=== PATIENT | male | born 1935 | race Asian ===

== ENCOUNTER 2018-01-14 18:51 | Inpatient (IN) | payer MEDICARE, BC ==
[~2018-01-14] VITALS: Ht 170.2 cm; Wt 91.6 kg
--- NOTE | 2018-01-14 18:55 | NUR ---
BBPA FROM US RENAL: LOW BP S/P HEMODIALYSIS. PATIENT IS VENT/TRACH DEPENDENT. A/OX 1, NO SOB NOTED. GTUBE INTACT AND PATENT. HD CATH PRESENTS ON RCW. SAFETY AND COMFORT MEASURES IN PLACE. IV STARTED ON RIGHT HAND, 20G. AT BEDSIDE FOR EVAL.
[2018-01-14 19:00] VITALS: BP 91/46
[2018-01-14] MEDS: VANCOMYCIN 1 GM in IV D5W 250 ML IV ONE ×2 (19:30→21:30)
[2018-01-14] MEDS ORDERED: IV NS 0.9% 500 ML BAG IV ONE (19:30)
--- NOTE | 2018-01-14 19:32 | NUR ---
REPORT GIVEN TO EVENING SITTER, ED FOR SYDNEE.
[2018-01-14 19:35] LABS: BASOPHILS % (AUTO) 0.3 % (0.0-2.0); HEMATOCRIT 27 % (39-51); LYMPHOCYTES # (AUTO) 0.6 /CMM (0.8-4.8); LYMPHOCYTES % (AUTO) 3.6 % (20.0-44.0); MEAN CORPUSCULAR HGB CONC 33 g/dl (31.0-36.0); MEAN CORPUSCULAR VOLUME 88 fL (80-96); MONOCYTES # (AUTO) 0.8 /CMM (0.1-1.30); MONOCYTES % (AUTO) 5.5 % (2.0-12.0); NEUTROPHILS # (AUTO) 11.8 /CMM (1.8-8.9); NEUTROPHILS % (AUTO) 76.6 % (43.0-81.0); PLATELET COUNT (AUTO) 170 /CMM (150-450); RDW COEFFICIENT OF VARIATION 19.3 (11.5-15.0); RED BLOOD CELL COUNT(AUTO) 3.07 MIL/uL (4.5-6.0); WHITE BLOOD COUNT (AUTO) 15.4 K/uL (4.3-11.0)
[2018-01-14 19:46] LABS: CALCIUM, SERUM 8.2 mg/dL (8.5-10.1); CARBON DIOXIDE 25 mmol/L (21-32); CHLORIDE 106 mmol/L (98-107); CREATININE 2.3 mg/dL (0.6-1.3); GLUCOSE 93 mg/dL (74-106); POTASSIUM 3.5 mmol/L (3.5-5.1); SODIUM SERUM 140 mmol/L (136-145); UREA NITROGEN, BLOOD 36 mg/dL (7-18)
[2018-01-14 19:54] LABS: TROPONIN I 0.028 ng/mL (0.00-0.056)
[2018-01-14 19:59] LABS: INR 1.28 (0.85-1.15)
[2018-01-14] MEDS ORDERED: IV NS 0.9% 250 ML BAG IV ONE (20:00)
[2018-01-14 20:02] LABS: PARTIAL THROMBOPLASTIN TIME > 170 SEC (23-34)
[2018-01-14 20:15] LABS: BAND % (MANUAL) 19 % (0.0-5.0); EOSINOPHILS % (MANUAL) 13 % (0-4); LYMPHOCYTES % (MANUAL) 8 % (16-48); MONOCYTES % (MANUAL) 6 % (0-11.0); NEUTROPHILS % (MANUAL) 54 (42-76)
[2018-01-14] MEDS ORDERED: VANCOMYCIN 1 GM VIAL ONE (20:59)
[2018-01-14] MEDS ORDERED: ACETAMINOPHEN 325 MG TABLET PO PRN (21:00)
[2018-01-14] MEDS ORDERED: PIPERACILLIN /TAZOBACTAM 3.375 G VIAL IV ONE (21:00)
[2018-01-14] MEDS ORDERED: CEFTRIAXONE 1 G in IV NS 0.9% 50 ML IV SCH (21:00)
[2018-01-14] MEDS ORDERED: PIPERACILLIN /TAZOBACTAM 3.375 G in IV D5W 50 ML IV ONE (21:00)
[2018-01-14 21:06] LABS: APPEARANCE,URINE TURBID (CLEAR); BILIRUBIN,URINE 1+ (NEGATIVE); BLOOD, URINE 3+ Ery/uL (NEGATIVE); COLOR,URINE DARK YELLO (YELLOW); KETONES,URINE TRACE (NEGATIVE); LEUKOCYTE ESTERASE ,URINE 1+ (NEGATIVE); NITRITE, URINE NEGATIVE (NEGATIVE); PH,URINE 5.5 (5.0-8.0); PROTEIN,URINE 3+ mg/dl (NEGATIVE); UGLUCOSE NEGATIVE (NEGATIVE); UROBILINOGEN,URINE 0.2 EU/dL (0.2)
--- NOTE | 2018-01-14 21:15 | NUR ---
REPORT CALLED TO TELE 1 ESTIVEN MARTINS. WILL TRANSPORT PT VIA ACLS PROTOCOL.
[2018-01-14 21:18] LABS: BACTERIA,URINE Many /HPF (None Seen); SQUAMOUS EPITHELIAL CELL,UR Few /HPF (None Seen)
[2018-01-14 22:10] VITALS: BP 91/51
--- NOTE | 2018-01-14 22:10 | NUR ---
RN KISHOR ADMITTING NOTE PT REC'D TRACHED ON CURRENT [facility] VENT SETTINGS. NO RESP DISTRESS NOTED. PT IS AWAKE AND ALERT, NON VERBAL, ABLE TO FOLLOW COMMAND, REPORT GIVEN BY ED ER, ADMITTING CAROL Reza NP, ALL ORDERS ENTERED PER PROTOCOL. INITIAL ASSESSMENT DONE, WITH SKIN ISSUES, PHOTOS TAKEN AND FILE, WOUND CONSULT AND KCI MATTRESS ORDERED. WITH A RH #20G, PATENT, GT PATENT ORDER FOR NOVASOURCE @ 60ML STARTED, WELL ELAINE, NO RESIDUAL AT THIS TIME. PTT>70 CAROL NIÑO AWARE, PT S/P DAILYSIS ON 01/14/18. SUCTIONED THICK YELLOW AND BLOOD TINGED SECRETIONS. VENT PLUGGED INTO RED OUTLET. AMBU BAG BEDSIDE. ALARMS ARE SET AND AUDIBLE. WILL CONTINUE TO MONITOR
[2018-01-14 22:20] VITALS: BP 91/50
[2018-01-14] MEDS ORDERED: CEFTRIAXONE 1 G VIAL ONE (23:53)
[2018-01-14] MEDS: AZITHROMYCIN 250 MG TABLET PO SCH (23:59)
[2018-01-15] VITALS: BP_SYST 91; BP_SYST 95; BP_DIAS 51; BP_DIAS 58
[2018-01-15] MEDS ORDERED: INSULIN ASPART/LISPRO 100 UNIT/ML CARTRIDGE SQ SCH
[2018-01-15] MEDS: RENAL NOVASOURCE 1,000 ML BOTTLE GT PRN ×2 (00:17→21:23)
[2018-01-15] MEDS: BLOOD SUGAR DIAGNOSTIC 1 EACH STRIP IN SCH ×5 (00:58→23:35)
[2018-01-15] MEDS ORDERED: DEXTROSE 50%-WATER 50 ML DISP.SYRIN IV PRN (01:00)
--- NOTE | 2018-01-15 01:02 | NUR ---
0000 BS 106 NO COVERAGE
--- NOTE | 2018-01-15 01:54 | NUR ---
ROCEPHINE AND NS UNABLE TO SCAN BARCODE
[2018-01-15] MEDS ORDERED: IV NS 0.9% 1,000 ML BAG IV PRN ×2 (02:00)
[2018-01-15 04:00] VITALS: BP 95/51
[2018-01-15] MEDS ORDERED: VIT1TABL46 GT (05:18)
[2018-01-15] MEDS ORDERED: DIPH25CA83 PO (05:18)
[2018-01-15] MEDS ORDERED: MIDO5TAB GT (05:18)
[2018-01-15] MEDS ORDERED: ASCO250T6 GT (05:18)
[2018-01-15] MEDS ORDERED: FAMO20TA8 GT (05:18)
[2018-01-15] MEDS ORDERED: ATOR40TA GT (05:18)
[2018-01-15] MEDS ORDERED: SEVE0.8P3 GT (05:18)
[2018-01-15] MEDS ORDERED: POLY17PO4 GT (05:18)
[2018-01-15] MEDS ORDERED: BISA10SU21 RC (05:18)
[2018-01-15] MEDS ORDERED: BICA50TA49 GT (05:18)
[2018-01-15] MEDS ORDERED: SENN-167 GT (05:18)
[2018-01-15] MEDS ORDERED: TAMS0.4C34 GT (05:18)
[2018-01-15] MEDS ORDERED: TRAM50TA2 GT (05:18)
[2018-01-15] MEDS ORDERED: ALBU2.5V13 IH (05:18)
--- NOTE | 2018-01-15 05:35 | NUR ---
PT REC'D TRACHED ON CURRENT [facility] VENT SETTINGS. NO RESP DISTRESS NOTED. PT IS AWAKE AND ALERT. SUCTIONED THICK YELLOW AND BLOOD TINGED SECRETIONS. VENT PLUGGED INTO RED OUTLET. AMBU BAG BEDSIDE. ALARMS ARE SET AND AUDIBLE. WILL CONTINUE TO MONITOR Addendum: 01/15/18 at 0537 by PEPE ENRIQUEZ RT Amended: Links added.
[2018-01-15] MEDS ORDERED: BLOOD SUGAR DIAGNOSTIC 1 EACH STRIP IN SCH (06:00)
--- NOTE | 2018-01-15 06:39 | NUR ---
RN CLOSING NOTE ENDORSED PT, AOX2 NON VERBAL, ABLE TO FOLLOW COMMAND, ON GTF, WELL ELAINE NO RESIDUAL AT THIS TIME, HOB ELEVATED FOR ASPIRATION PRECAUTION, VERY PRODUCTIVE VIA TRACH AND PER ORAL WITH BLOOD TINGE SECRETION, WILL ENDORSE FOR AM SHIFT NURSE TO MONITOR FOR BLEEDING. ALL PT NEEDS ANTICIPATED, CALL LIGHT W/R, KEPT CLEAN AND DRY.
[2018-01-15 07:20] LABS: BASOPHILS % (AUTO) 0.2 % (0.0-2.0); EOSINOPHILS % (AUTO) 13.6 % (0.0-6.0); HEMATOCRIT 27 % (39-51); HEMOGLOBIN 8.8 g/dL (13.5-17.5); LYMPHOCYTES # (AUTO) 0.4 /CMM (0.8-4.8); LYMPHOCYTES % (AUTO) 2.9 % (20.0-44.0); MEAN CORPUSCULAR HGB CONC 33 g/dl (31.0-36.0); MEAN CORPUSCULAR VOLUME 90 fL (80-96); MONOCYTES # (AUTO) 0.9 /CMM (0.1-1.30); MONOCYTES % (AUTO) 6.1 % (2.0-12.0); NEUTROPHILS # (AUTO) 11.7 /CMM (1.8-8.9); NEUTROPHILS % (AUTO) 77.2 % (43.0-81.0); PLATELET COUNT (AUTO) 158 /CMM (150-450); RDW COEFFICIENT OF VARIATION 20.5 (11.5-15.0); RED BLOOD CELL COUNT(AUTO) 2.97 MIL/uL (4.5-6.0); WHITE BLOOD COUNT (AUTO) 15.1 K/uL (4.3-11.0)
[2018-01-15 07:29] LABS: INR 1.2 (0.87-1.13)
[2018-01-15 07:56] LABS: CALCIUM, SERUM 8.1 mg/dL (8.5-10.1); CARBON DIOXIDE 24 mmol/L (21-32); CHLORIDE 105 mmol/L (98-107); CREATININE 2.7 mg/dL (0.6-1.3); GLUCOSE 137 mg/dL (74-106); MAGNESIUM 1.9 mg/dL (1.8-2.4); PHOSPHORUS 3.1 mg/dL (2.5-4.9); POTASSIUM 3.9 mmol/L (3.5-5.1); SODIUM SERUM 139 mmol/L (136-145); UREA NITROGEN, BLOOD 45 mg/dL (7-18)
[2018-01-15 08:00] VITALS: BP 88/43
[2018-01-15] MEDS ORDERED: ACET650S26 GT (08:01)
[2018-01-15] MEDS ORDERED: NUT.237L67 GT (08:01)
[2018-01-15] MEDS ORDERED: DOCU50LI GT (08:01)
[2018-01-15] MEDS ORDERED: AMIN30LI4 GT (08:01)
[2018-01-15] MEDS ORDERED: ONDA4TAB5 GT (08:01)
[2018-01-15] MEDS ORDERED: IPRA3AMP23 IH (08:01)
[2018-01-15 08:02] LABS: CHOLESTEROL 67 mg/dL (<200); HDL CHOLESTEROL 32 mg/dL (40-60); LDL 28 mg/dL (0-99); THYROID STIMULATING HORMONE 6.053 uIU/mL (0.358-3.74); TRIGLYCERIDES 89 mg/dL (30-150)
[2018-01-15] MEDS: AZITHROMYCIN 250 MG TABLET PO SCH (08:17)
[2018-01-15] MEDS: PANTOPRAZOLE 40 MG TABLET.DR PO SCH (08:17)
[2018-01-15] MEDS: DOCUSATE SODIUM LIQ 100 MG/10 ML UDC NG SCH ×2 (08:47→17:14)
--- NOTE | 2018-01-15 08:50 | NUR ---
WOUND CARE CONSULT: PT PRESENTS WITH MULTIPLE SKIN ISSUES AND WOUNDS INCLUDING LEFT UPPER ARM NECROTIC WOUND, SACRAL STAGE 3 ULCER, DEEP TISSUE INJURY TO RT BUTTOCK, MULTIPLE SCRATCHES AND DRY ABRASIONS TO BACK AND BUTTOCKS, GENERALIZED EDEMA AND DRY PEELING SKIN, ALL PRESENT ON ADMISSION. ALL SKIN PROTECTION AND WOUND CARE RECOMMENDATIONS DISCUSSED WITH NURSING STAFF. FIRST STEP MATTRESS ORDERED. RECOMMEND SURGICAL CONSULT. WILL SEE PRN. DOMINGUEZ IN AGREEMENT WITH PLAN OF CARE. CURRENT ETIENNE SCORE IS 10. Addendum: 01/15/18 at 0854 by CHARISSA TORRES WNDNU Amended: Links added.
[2018-01-15] MEDS ORDERED: HYDROGEL DRESSING 90 GM TUBE TP SCH (09:00)
[2018-01-15] MEDS ORDERED: HYDROGEL DRESSING 90 GM TUBE TP PRN (09:00)
[2018-01-15] MEDS ORDERED: DOCUSATE SODIUM 100 MG CAPSULE PO SCH (09:00)
--- NOTE | 2018-01-15 11:48 | NUR ---
IMPLEMENTATION SPECIALIST NOTE 0720: Received patient awake, A/Ox2, able to mouth words, with trache to vent, tolerated settings. No respiratory distress noted. No c/o discomfort at this time. With itchiness noted. Noted anuric. GT intact, feeding tolerated, no residuals at this time. Kept HOB elevated. 0820: S/E by wound care consult, noted new skin treatments. SBP still 80's, will continue IVF per Chad FINANCE MGR order. Followed up with [facility] for KCI mattress. 0840: S/E by Dr. Painter, with order to may transfer to Tele, CN aware. 1130: S/E by Brantd NIÑO, daughter Jana at bedside, made aware for the POC, all questions and concerns were answered by MD, awaiting if will do HD today. Per FINANCE MGR, will review chart and will see if can DC IVF and will restart Midodrine. SBP 90's still at this time. FINANCE MGR aware for the skin dryness, awaiting Nicol NIÑO to see patient. Daughter informed FINANCE MGR patient was taking chemo PO for Prostate Ca, FINANCE MGR will review.
[2018-01-15 12:00] VITALS: BP 90/45
[2018-01-15] MEDS: CADEXOMER IODINE 40 GM TUBE TP SCH (12:34)
[2018-01-15] MEDS ORDERED: TRAMADOL HCL 50 MG TABLET GT PRN (14:00)
[2018-01-15] MEDS ORDERED: SENNOSIDES 8.6 MG TABLET GT PRN (14:00)
[2018-01-15] MEDS ORDERED: POLYETHYLENE GLYCOL 3350 17 GM POWD.PACK GT PRN (14:00)
[2018-01-15] MEDS ORDERED: BISACODYL SUPP (10 MG) 10 MG/SUPP.RECT SUPP.RECT RC PRN (14:00)
[2018-01-15] MEDS ORDERED: NEPRO VAN 237 ML CAN GT SCH (14:00)
[2018-01-15] MEDS ORDERED: ASCORBIC ACID 250 MG TABLET PO SCH (15:00)
[2018-01-15 16:00] VITALS: BP 90/47
[2018-01-15] MEDS: CEFEPIME 2 GM in IV D5W 100 ML IV SCH (16:59)
[2018-01-15] MEDS: PROSOURCE / PROSTAT (PYXIS) 30 ML UDC GT SCH (17:14)
[2018-01-15] MEDS: LACTOBACILLUS RHAMNOSUS GG 1 EACH CAP.SPRINK PO SCH (17:15)
--- NOTE | 2018-01-15 17:40 | NUR ---
PT ARLENE'D ON MECHANICAL VENT. PT SUCTIONED T/O SHIFT. PT TRACH PATENT AND SECURE. AMBU BAG AT BEDSIDE. VENT PLUGGED INTO RED OUTLET. ALARMS ON AND AUDIBLE. Addendum: 01/15/18 at 1743 by OLI GROVES RT Amended: Links added.
--- NOTE | 2018-01-15 18:33 | NUR ---
TRUST MAIL CLERK NOTE 1330: S/E by Dr. Hernandez, said will do HD tomorrow. 183: No any significant changes. SBP 90's. PIV intact. Kept clean, warm and dry. Needs attended. Tolerated GT feeding. Unable to gather stool sample for occult blood due to x3 but small amount. S/E by Jaycee NIÑO, awaiting if with new orders.
[2018-01-15] MEDS ORDERED: ALBUTEROL FS 2.5 MG/3 ML VIAL.NEB NEB PRN (19:30)
--- NOTE | 2018-01-15 19:59 | NUR ---
RN TEL INITIAL NOTE RECEIVED PT, AOX2 NON VERBAL, ABLE TO FOLLOW COMMAND, ON GTF, WELL ELAINE NO RESIDUAL AT THIS TIME, HOB ELEVATED FOR ASPIRATION PRECAUTION, VERY PRODUCTIVE VIA TRACH AND PER ORAL WITH BLOOD TINGE SECRETION, WILL ENDORSE FOR AM SHIFT NURSE TO MONITOR FOR BLEEDING. ALL PT NEEDS ANTICIPATED, CALL LIGHT W/R, KEPT CLEAN AND DRY
[2018-01-15 20:00] VITALS: BP 101/50
[2018-01-15] MEDS ORDERED: SULFAMETH/TRIMETH 800/160 MG 1 UDTAB TABLET PO ONE (21:00)
[2018-01-15] MEDS: ATORVASTATIN 40 MG TABLET GT SCH (21:24)
[2018-01-15] MEDS: MIDODRINE HCL (5MG) 5 MG TABLET GT SCH (21:24)
[2018-01-15] MEDS: diphenhydrAMINE HCL 25 MG CAPSULE PO PRN (21:25)
[2018-01-15] MEDS: SEVELAMER CARBONATE 0.8 GM POWD.PACK GT SCH (21:25)
[2018-01-16] VITALS: BP 101/50
[2018-01-16] MEDS: INSULIN LISPRO/ASPART 100 UNIT/ML CARTRIDGE SQ SCH ×2 (00:06→05:41)
[2018-01-16 04:00] VITALS: BP 90/50
[2018-01-16] MEDS: SEVELAMER CARBONATE 0.8 GM POWD.PACK GT SCH ×3 (04:33→21:01)
[2018-01-16] MEDS: MIDODRINE HCL (5MG) 5 MG TABLET GT SCH ×3 (04:34→21:02)
[2018-01-16] MEDS: BLOOD SUGAR DIAGNOSTIC 1 EACH STRIP IN SCH ×5 (05:10→23:58)
[2018-01-16] MEDS ORDERED: DEXTROSE 50%-WATER 50 ML DISP.SYRIN IV PRN ×2 (05:30→06:00)
[2018-01-16] MEDS ORDERED: INSULIN REGULAR, HUMAN 100 UNIT/ML 3 ML VIAL SQ PRN (05:30)
[2018-01-16] MEDS ORDERED: BLOOD SUGAR DIAGNOSTIC 1 EACH STRIP IN SCH (06:00)
--- NOTE | 2018-01-16 06:07 | NUR ---
RN TEL CLOSING NOTE ENDORSED PT, AOX2 NON VERBAL, ABLE TO FOLLOW COMMAND, ON GTF, WELL ELAINE NO RESIDUAL AT THIS TIME, HOB ELEVATED FOR ASPIRATION PRECAUTION, VERY PRODUCTIVE VIA TRACH AND PER ORAL NO BLOOD TINGE SECRETION @ THIS TIME, WILL ENDORSE FOR AM SHIFT NURSE TO MONITOR FOR BLEEDING. ALL PT NEEDS ANTICIPATED, CALL LIGHT W/R, KEPT CLEAN AND DRY
--- NOTE | 2018-01-16 06:35 | NUR ---
PT TRACH'D ON MECHANICAL VENT. PT SUCTIONED T/O SHIFT. PT TRACH PATENT AND SECURE. AMBU BAG AT BEDSIDE. VENT PLUGGED INTO RED OUTLET. ALARMS ON AND AUDIBLE.
--- NOTE | 2018-01-16 06:36 | NUR ---
ACUCHECK ORDER REORDERED AND VERIFIED WITH PHARMACY
[2018-01-16 08:00] VITALS: BP_SYST 86; BP_SYST 90; BP_DIAS 41; BP_DIAS 43
[2018-01-16] MEDS: BICALUTAMIDE 50 MG TABLET GT SCH (08:43)
[2018-01-16] MEDS: VIT B CMPLX 3/FA/VIT C/BIOTIN 1 TAB TABLET GT SCH (08:44)
[2018-01-16] MEDS: DOCUSATE SODIUM LIQ 100 MG/10 ML UDC NG SCH ×2 (08:44→16:24)
[2018-01-16] MEDS: LACTOBACILLUS RHAMNOSUS GG 1 EACH CAP.SPRINK PO SCH ×2 (08:44→16:24)
[2018-01-16] MEDS: ASCORBIC ACID 500 MG TABLET PO SCH (08:44)
[2018-01-16] MEDS: PROSOURCE / PROSTAT (PYXIS) 30 ML UDC GT SCH ×3 (08:44→16:24)
[2018-01-16] MEDS: PANTOPRAZOLE 40 MG TABLET.DR PO SCH (08:44)
[2018-01-16] MEDS: FAMOTIDINE (20 MG) 20 MG TABLET GT SCH (08:44)
[2018-01-16] MEDS: TAMSULOSIN 0.4 MG CAP.SR.24H GT SCH (08:44)
[2018-01-16] MEDS: CADEXOMER IODINE 40 GM TUBE TP SCH (08:45)
[2018-01-16 09:20] LABS: BASOPHILS % (AUTO) 0.2 % (0.0-2.0); EOSINOPHILS % (AUTO) 16.3 % (0.0-6.0); HEMATOCRIT 26 % (39-51); HEMOGLOBIN 8.4 g/dL (13.5-17.5); LYMPHOCYTES # (AUTO) 0.8 /CMM (0.8-4.8); LYMPHOCYTES % (AUTO) 4.8 % (20.0-44.0); MEAN CORPUSCULAR HGB CONC 32 g/dl (31.0-36.0); MEAN CORPUSCULAR VOLUME 91 fL (80-96); MONOCYTES # (AUTO) 0.7 /CMM (0.1-1.30); MONOCYTES % (AUTO) 4.5 % (2.0-12.0); NEUTROPHILS # (AUTO) 11.8 /CMM (1.8-8.9); NEUTROPHILS % (AUTO) 74.2 % (43.0-81.0); PLATELET COUNT (AUTO) 160 /CMM (150-450); RDW COEFFICIENT OF VARIATION 21.1 (11.5-15.0); RED BLOOD CELL COUNT(AUTO) 2.89 MIL/uL (4.5-6.0); WHITE BLOOD COUNT (AUTO) 15.9 K/uL (4.3-11.0)
[2018-01-16 09:30] LABS: CALCIUM, SERUM 8.2 mg/dL (8.5-10.1); CARBON DIOXIDE 22 mmol/L (21-32); CHLORIDE 107 mmol/L (98-107); CREATININE 3.7 mg/dL (0.6-1.3); GLUCOSE 164 mg/dL (74-106); POTASSIUM 3.5 mmol/L (3.5-5.1); SODIUM SERUM 141 mmol/L (136-145); UREA NITROGEN, BLOOD 72 mg/dL (7-18)
[2018-01-16 09:37] LABS: BAND % (MANUAL) 6 % (0.0-5.0); EOSINOPHILS % (MANUAL) 16 % (0-4); LYMPHOCYTES % (MANUAL) 5 % (16-48); MONOCYTES % (MANUAL) 4 % (0-11.0); MYELOCYTES % 2 % (0-0); NEUTROPHILS % (MANUAL) 67 (42-76)
--- NOTE | 2018-01-16 11:00 | NUR ---
PRODUCTION WORKER NOTE PT HAS MULTIPLE WEEPING GENERALIZE WOUNDS AND DRY SKIN. PT HAD SCAB ON R CHEEK PT SCRATCHED SCAB. PHOTO TAKEN PRESSURE APPLIED AND DRESSING APPLIED.
[2018-01-16] MEDS: ALBUMIN 25% 25 GM in PREMIX 1 EA IV PRN (11:11)
[2018-01-16] MEDS: INSULIN REGULAR, HUMAN 100 UNIT/ML 3 ML VIAL SQ PRN ×2 (11:44→17:26)
[2018-01-16 12:00] VITALS: BP 80/43
[2018-01-16] MEDS: SULFAMETH/TRIMETH 800/160 MG 1 UDTAB TABLET PO SCH ×2 (12:37→21:01)
[2018-01-16] MEDS: RENAL NOVASOURCE 1,000 ML BOTTLE GT PRN (12:38)
[2018-01-16] MEDS: CEFEPIME 2 GM in IV D5W 100 ML IV SCH (15:36)
[2018-01-16 16:00] VITALS: BP 91/43
--- NOTE | 2018-01-16 16:29 | NUR ---
ACCOUNT MANAGER NOTE CALLED MANUELA NAM N.P. REPORTED PT IS AGITATED PULLING ON VENTILATOR TUBING. I ASKED PATIENT WHY HE IS PULLING ON VENT HE STATED "I'M FEELING VERY NERVOUS" PT ALSO POINTED TO HEAD. MANUELA ORDERED 1 MG ATIVAN PO Q 8 HRS PRN THROUGH G-TUBE.
[2018-01-16] MEDS: LORAZEPAM 1 MG TABLET PO PRN (16:38)
--- NOTE | 2018-01-16 19:12 | NUR ---
RN TEL INITIAL NOTE RECEIVED PT, AOX2 NON VERBAL, ABLE TO FOLLOW COMMAND, ON GTF, WELL ELAINE NO RESIDUAL AT THIS TIME, HOB ELEVATED FOR ASPIRATION PRECAUTION, VERY PRODUCTIVE VIA TRACH AND PER ORAL WITH BLOOD TINGE SECRETION, S/P HD, STILL ANXIOUS, AM NURSE GAVE ATIVAN PER MD ORDER, WILL CONT TO MONITOR. WILL ENDORSE FOR AM SHIFT NURSE TO MONITOR FOR BLEEDING. ALL PT NEEDS ANTICIPATED, CALL LIGHT W/R, KEPT CLEAN AND DRY
[2018-01-16 20:00] VITALS: BP 90/46
[2018-01-16] MEDS: ATORVASTATIN 40 MG TABLET GT SCH (21:01)
[2018-01-16] MEDS: diphenhydrAMINE HCL 25 MG CAPSULE PO PRN (21:01)
[2018-01-17] VITALS (14 sets, daily range): BP systolic 64–126; BP diastolic 34–85
[2018-01-17] MEDS: SEVELAMER CARBONATE 0.8 GM POWD.PACK GT SCH ×3 (04:28→20:53)
[2018-01-17] MEDS: MIDODRINE HCL (5MG) 5 MG TABLET GT SCH ×3 (04:28→20:53)
[2018-01-17] MEDS: BLOOD SUGAR DIAGNOSTIC 1 EACH STRIP IN SCH ×4 (05:01→23:30)
[2018-01-17] MEDS: RENAL NOVASOURCE 1,000 ML BOTTLE GT PRN (05:03)
[2018-01-17] MEDS: LORAZEPAM 1 MG TABLET PO PRN (05:39)
[2018-01-17] MEDS: HYDROCODONE/APAP 5/325MG 1 EACH TABLET PO PRN (05:40)
--- NOTE | 2018-01-17 05:48 | NUR ---
RN TEL CLOSING NOTE ENDORSED PT, AO, ASLEEP, NON VERBAL, WITH EPISODES OF RESTLESSNESS AND CONFUSION, ENDORSED BY DELGADO RN AFTER DAILYSIS, CONT ON AND OFF THROUGH SHIFT, ATIVAN AND NORCO GIVEN ORDERED PRIOR TO WOUND CARE, ABLE TO FOLLOW COMMAND, ON GTF, NOTED WELL ELAINE NO RESIDUAL AT THIS TIME, HOB ELEVATED FOR ASPIRATION PRECAUTION, VERY PRODUCTIVE VIA TRACH AND PER ORAL WITH BLOOD TINGE SECRETION, S/P HD, STILL ANXIOUS, WILL CONT TO MONITOR. WILL ENDORSE FOR AM SHIFT NURSE TO MONITOR FOR BLEEDING. ALL PT NEEDS ANTICIPATED, CALL LIGHT W/R, KEPT CLEAN AND DRY
--- NOTE | 2018-01-17 06:06 | NUR ---
PT ARLENE'D ON MECHANICAL VENT. PT SUCTIONED T/O SHIFT. PT ARLENE PATENT AND SECURE. AMBU BAG AT BEDSIDE. VENT PLUGGED INTO RED OUTLET. ALARMS ARE ON AND AUDIBLE. Addendum: 01/17/18 at 0608 by OLI GROVES RT Amended: Links added.
--- NOTE | 2018-01-17 07:30 | NUR ---
RN NOTE RECEIVED PT ON BED, AOX2, FOLLOWS COMMANDS, MECH VENT, ON STORE PROTECTION SPECIALIST ST 113, O2 SAT 95%, RR 24, PT APPEARS UNCOMFORTABLE, ITCHING, GENERALIZED REDNESS OF THE SKIN, SPUTUM FROM TRACH IS BLOOD TINGED, IV INTACT. DENIES PAIN. SAFETY MEASURES IMPLEMENTED, CALL LIGHT WITHIN REACH. WILL MONITOR AND FOLLOW UP WITH DOCTOR.
[2018-01-17 07:41] LABS: BASOPHILS % (AUTO) 0.1 % (0.0-2.0); EOSINOPHILS % (AUTO) 16.8 % (0.0-6.0); HEMATOCRIT 25 % (39-51); HEMOGLOBIN 8.3 g/dL (13.5-17.5); LYMPHOCYTES # (AUTO) 0.7 /CMM (0.8-4.8); LYMPHOCYTES % (AUTO) 4.5 % (20.0-44.0); MEAN CORPUSCULAR HGB CONC 33 g/dl (31.0-36.0); MEAN CORPUSCULAR VOLUME 90 fL (80-96); MONOCYTES # (AUTO) 0.9 /CMM (0.1-1.30); MONOCYTES % (AUTO) 5.4 % (2.0-12.0); NEUTROPHILS # (AUTO) 11.5 /CMM (1.8-8.9); NEUTROPHILS % (AUTO) 73.2 % (43.0-81.0); PLATELET COUNT (AUTO) 138 /CMM (150-450); RDW COEFFICIENT OF VARIATION 20.1 (11.5-15.0); RED BLOOD CELL COUNT(AUTO) 2.82 MIL/uL (4.5-6.0); WHITE BLOOD COUNT (AUTO) 15.8 K/uL (4.3-11.0)
--- NOTE | 2018-01-17 08:00 | NUR ---
RN NOTE RECEIVED PT ON BED, AOX3, UNCOMFORTABLE, CO NAUSEA, DRY MOUTH, PAIN IN LOW BACK AND SPASMS IN HIS LEGS, DIZZINESS EVEN LYING DOWN, VS STABLE, CALL LIGHT WITHIN REACH, SAFETY MEASURES IN PLACE, IVF RUNNING, ON TELE MONITOR SR 80S. WILL MONITOR AND FOLLOW UP WITH MD. PT INSTRUCTED NOT TO GET OUT OF THE BED. PT VERBALIZED UNDERSTANDING. Addendum: 01/17/18 at 1932 by FRANK ALBRECHT RN DISREGARD THIS NOTE, WRONG PT DOCUMENTATION.
[2018-01-17 08:04] LABS: CALCIUM, SERUM 8.1 mg/dL (8.5-10.1); CARBON DIOXIDE 26 mmol/L (21-32); CHLORIDE 104 mmol/L (98-107); CREATININE 3.1 mg/dL (0.6-1.3); GLUCOSE 135 mg/dL (74-106); POTASSIUM 3.4 mmol/L (3.5-5.1); SODIUM SERUM 140 mmol/L (136-145); UREA NITROGEN, BLOOD 64 mg/dL (7-18)
[2018-01-17] MEDS: PROSOURCE / PROSTAT (PYXIS) 30 ML UDC GT SCH ×3 (09:21→16:01)
[2018-01-17] MEDS: DOCUSATE SODIUM LIQ 100 MG/10 ML UDC NG SCH ×2 (09:21→16:01)
[2018-01-17] MEDS: LACTOBACILLUS RHAMNOSUS GG 1 EACH CAP.SPRINK PO SCH ×2 (09:21→16:01)
[2018-01-17] MEDS: diphenhydrAMINE HCL 25 MG CAPSULE PO PRN ×2 (09:21→19:11)
[2018-01-17] MEDS: BICALUTAMIDE 50 MG TABLET GT SCH (09:21)
[2018-01-17] MEDS: PANTOPRAZOLE 40 MG TABLET.DR PO SCH (09:21)
[2018-01-17] MEDS: FAMOTIDINE (20 MG) 20 MG TABLET GT SCH (09:21)
[2018-01-17] MEDS: ASCORBIC ACID 500 MG TABLET PO SCH (09:22)
[2018-01-17] MEDS: TAMSULOSIN 0.4 MG CAP.SR.24H GT SCH (09:22)
[2018-01-17] MEDS: VIT B CMPLX 3/FA/VIT C/BIOTIN 1 TAB TABLET GT SCH (09:22)
[2018-01-17] MEDS: CADEXOMER IODINE 40 GM TUBE TP SCH (09:23)
[2018-01-17] MEDS: SULFAMETH/TRIMETH 800/160 MG 1 UDTAB TABLET PO SCH (09:24)
[2018-01-17] MEDS ORDERED: IV NS 0.9% 500 ML IV ONE ×2 (11:30→17:00)
[2018-01-17] MEDS: INSULIN REGULAR, HUMAN 100 UNIT/ML 3 ML VIAL SQ PRN ×3 (11:43→23:34)
--- NOTE | 2018-01-17 13:30 | NUR ---
RN NOTE PT BP REMAINS LOW AFTER THE BOLUS, 500 ML NS, 83/34 MMHG IN THE ARM, 84/27 MMHG IN THE LEFT CALF, INTERIOR DESIGN PROGRAM CHAIR NAM NOTIFIED, ALSO PROCALCITONIN 1.18 REPORTED TO HIM. NO NEW ORDERS AT THIS TIME.
[2018-01-17] MEDS: CEFEPIME 2 GM in IV D5W 100 ML IV SCH (15:45)
[2018-01-17] MEDS ORDERED: LORAZEPAM 1 MG TABLET PO PRN (16:30)
--- NOTE | 2018-01-17 16:30 | NUR ---
RN NOTE SPOKE WITH TRAVELING MISSIONARY NAM, BP STILL REMAINS LOW 79/43 MMHG, GOT ORDER TO GIVE ANOTHER 500 ML NS BOLUS. WILL CARRY OUT.
[2018-01-17 16:53] LABS: ABG BASE EXCESS -2.1 mmol/L; ABG OXYGEN SATURATION 90.3 % (92.0-98.5); ABG PCO2 47.3 mmHg (35.0-45.0); ABG PH 7.323 (7.350-7.450); ABG PO2 63.4 mmHg (75.0-100.0); AaDO2 94.9 mmHg; COHb 0.4 % (0.5-1.5); MetHb 0.3 % (0.0-1.5); O2Hb 89.7 % (94.0-97.0); PEEP,BG 0 cm H2O; SITE, ABG Right Radial; VT, ABG 500 mL
[2018-01-17] MEDS ORDERED: IV LR 500 ML IV ONE (17:00)
--- NOTE | 2018-01-17 17:40 | NUR ---
RN NOTE REPORT GIVEN TO ESTIVEN MANRIQUEZ FOR SYDNEE, PT GOING TO ICU PER DR HILLMAN, SALINAS CASIANO.
[2018-01-17] MEDS ORDERED: IV LR 1000 ML 500 ML IV PRN ×2 (18:00)
[2018-01-17] MEDS: FLUCONAZOLE (100 MG) 100 MG TABLET PO SCH (18:15)
--- NOTE | 2018-01-17 18:27 | NUR ---
TRANSFER DAIRY FARM WORKER NOTE RCVD PT FROM [facility], PT AWAKE AND ALERT TO SELF, SR ON TELE. PEG IN PLACE NO RESIDUAL OBTAINED UPON ASPIRATING. IV SITES ON BILATERAL HANDS, AND JAMES C/D/I/PATENT. NO S/O INFILTRATION/PHLEBITIS OBSERVED UPON FLUSHING. BOLUS INFUSING ORDERED. PT'S CARE WILL BE ENDORSED TO RIDDLER OPERATOR RN FOR CONTINUITY OF CARE. BED IN LOW AND LOCKED POSITION. CALL LIGHT WITHIN REACH.
[2018-01-17] MEDS: MEROPENEM 500 MG in IV NS 0.9% 50 ML IV SCH (19:11)
--- NOTE | 2018-01-17 19:14 | NUR ---
BRAKE LINING DRILLER NOTE MANUELA, STRAND AND BINDER CONTROLLER CALLED TO INFORMED HIM OF PT'S LACTIC ACID AND DR. HILLMAN'S ORDER TO GIVE LR BOLUS. LACTIC ACID TO BE RE-CHECKED POST BOLUS AND CALL MD BACK IF TRENDING UP. PT'S FAMILY AT BEDSIDE STATES THAT PT'S SKIN APPEARS RED. LAST TIME THEY SAW PT ON THURSDAY PT'S SKIN WAS NOT RED. MANUELA INFORMED AND RECOMMENDED TO GIVE BENADRYL, REVIEWED ON BOARD ANTIBIOTICS. NO NEW ORDERS, HE'LL ASSESS PT IN AM.
--- NOTE | 2018-01-17 19:30 | NUR ---
POLE FRAMER MACHINE INITIAL NOTE PT RECEIVED AWAKE WITH FAMILY AT BEDSIDE. A/O X1 AND ABLE TO NOD HEAD FOR YES OR NO. ON MECH VENT WITH SETTINGS WELL TOLERATED AND SATURATING WELL. HOB ELEVATED. TELE- AFIB 96 W RIGHT BBB. IV R AND L HAND #22 CLEAN, DRY AND PATENT. RCW PERMACATH CLEAN AND DRY. GTF INFUSING AND NO RESIDUALS NOTED. ON ASPIRATION PRECAUTIONS. CALL LIGHT WITHIN REACH. WILL CONTINUE TO MONITOR.
[2018-01-17 19:41] LABS: BILIRUBIN,DIRECT 0.2 mg/dL (0.0-0.2); BILIRUBIN,TOTAL 0.5 mg/dL (0.2-1.0)
[2018-01-17] MEDS: LINEZOLID RTU BAG 600 MG in PREMIX 1 EA IV SCH (20:53)
[2018-01-17] MEDS: ATORVASTATIN 40 MG TABLET GT SCH (21:02)
--- NOTE | 2018-01-17 21:15 | NUR ---
PT RECEIVED ON VENT VIA CHARTED SETTINGS AND ROUTE. ALARMS SET AND AUDIBLE. DISCONNECT ALARMS CHECKED. VENT PLUGGED INTO RED OUTLET. AMBU BAG AT BEDSIDE. ALARMS SET AND AUDIBLE. TOLERATING VENT SETTINGS AT THIS TIME Addendum: 01/17/18 at 2115 by ROBERTO RHOADES RT Amended: Links added.
[2018-01-18] VITALS (113 sets, daily range): BP systolic 53–154; BP diastolic 17–101
[2018-01-18] MEDS ORDERED: ALBUMIN 5% 500 ML IV ONE (02:22)
[2018-01-18] MEDS ORDERED: NOREPINEPHRINE 4 MG/4 ML AMPUL IV ONE (02:26)
--- NOTE | 2018-01-18 02:28 | NUR ---
fio2 increased due to unable to obtain spo2 reading Addendum: 01/18/18 at 0229 by ROBERTO RHOADES RT Amended: Links added.
[2018-01-18] MEDS ORDERED: NOREPINEPHRINE 16 MG in IV D5W 500 ML IV PRN (02:30)
[2018-01-18] MEDS ORDERED: ALBUMIN 5% 25 GM in PREMIX 1 EA IV ONE (02:30)
--- NOTE | 2018-01-18 02:30 | NUR ---
PRODUCT SAFETY CONSULTANT NOTE PT BLOOD PRESSURE REMAINS IN THE 70'S SBP AND ALSO UNABLE TO GET A GOOD SPAO2 READING. SPOKE WITH MICROWAVE SUPERVISOR SARABJIT GLOVE FACTORY SEWER WITH NEW ORDERS TO GIVE ALBUMIN 500ML NOW AND ALSO START ON LEVOPHED DOUBLE CONCENTRATION. ORDERS TO KEEP SBP >90 OR MAP >65. O2 INCREASED. WILL CONTINUE TO MONITOR.
[2018-01-18] MEDS: RENAL NOVASOURCE 1,000 ML BOTTLE GT PRN ×2 (03:13→17:09)
[2018-01-18] MEDS: SEVELAMER CARBONATE 0.8 GM POWD.PACK GT SCH ×3 (04:48→21:09)
[2018-01-18] MEDS: MIDODRINE HCL (5MG) 5 MG TABLET GT SCH ×3 (04:48→21:10)
[2018-01-18] MEDS: MEROPENEM 500 MG in IV NS 0.9% 50 ML IV SCH ×2 (05:02→17:08)
[2018-01-18] MEDS: BLOOD SUGAR DIAGNOSTIC 1 EACH STRIP IN SCH ×4 (05:02→23:36)
[2018-01-18 05:07] LABS: BASOPHILS % (AUTO) 0.1 % (0.0-2.0); EOSINOPHILS % (AUTO) 11.4 % (0.0-6.0); HEMATOCRIT 25 % (39-51); HEMOGLOBIN 7.9 g/dL (13.5-17.5); LYMPHOCYTES # (AUTO) 0.6 /CMM (0.8-4.8); LYMPHOCYTES % (AUTO) 3.3 % (20.0-44.0); MEAN CORPUSCULAR HGB CONC 32 g/dl (31.0-36.0); MEAN CORPUSCULAR VOLUME 92 fL (80-96); MONOCYTES % (AUTO) 5.6 % (2.0-12.0); NEUTROPHILS # (AUTO) 14.8 /CMM (1.8-8.9); NEUTROPHILS % (AUTO) 79.6 % (43.0-81.0); PLATELET COUNT (AUTO) 130 /CMM (150-450); RDW COEFFICIENT OF VARIATION 21.2 (11.5-15.0); RED BLOOD CELL COUNT(AUTO) 2.76 MIL/uL (4.5-6.0); WHITE BLOOD COUNT (AUTO) 18.5 K/uL (4.3-11.0)
[2018-01-18 05:22] LABS: CALCIUM, SERUM 7.8 mg/dL (8.5-10.1); CARBON DIOXIDE 25 mmol/L (21-32); CHLORIDE 106 mmol/L (98-107); CREATININE 3.4 mg/dL (0.6-1.3); GLUCOSE 117 mg/dL (74-106); MAGNESIUM 1.8 mg/dL (1.8-2.4); PHOSPHORUS 3.3 mg/dL (2.5-4.9); POTASSIUM 3.7 mmol/L (3.5-5.1); SODIUM SERUM 142 mmol/L (136-145)
[2018-01-18 05:33] LABS: BAND % (MANUAL) 4 % (0.0-5.0); EOSINOPHILS % (MANUAL) 9 % (0-4); LYMPHOCYTES % (MANUAL) 4 % (16-48); MONOCYTES % (MANUAL) 4 % (0-11.0); NEUTROPHILS % (MANUAL) 79 (42-76)
[2018-01-18 05:37] LABS: UREA NITROGEN, BLOOD 82 mg/dL (7-18)
--- NOTE | 2018-01-18 07:40 | NUR ---
INITIAL DAM OPERATOR NOTE RCVD PT AWAKE AND ALERT, ABLE TO FOLLOW SIMPLE COMMANDS. AFIB ON TELE. APPEARS TO BE BREATHING FAST AND SHALLOW AT THIS TIME. PT DENIES PAIN. PEG CLAMPED PLACEMENT VERIFIED BY AUSCULTATION/ASPIRATION. IV SITES C/D/I/PATENT. NO S/O INFILTRATION/PHLEBITIS OBSERVED UPON FLUSHING. WILL CONTINUE TO MONITOR PT FOR SAFETY AND COMFORT. CALL LIGHT WITHIN REACH. BED IN LOW AND LOCKED POSITION.
--- NOTE | 2018-01-18 07:49 | NUR ---
STERILE PROCESSING TECHNICIAN CLOSING NOTE NO ACUTE DISTRESS AT THIS TIME. ON MECH VENT WITH SETTINGS AT O2 OF 60% AND TOLERATING WELL. HOB ELEVATED. ON LEVOPHED 10MCG/MIN AND TOLERATING WELL. BP 104/48 AT THIS TIME. SUCTIONED NEEDED. REPOSITIONED Q2H. ALL NEEDS ATTENDED TO PROMPTLY. WILL ENDORSE TO NEXT SHIFT FOR CONTINUITY OF CARE.
[2018-01-18 08:53] LABS: ABG BASE EXCESS -3.7 mmol/L; ABG OXYGEN SATURATION 97.4 % (92.0-98.5); ABG PCO2 57.1 mmHg (35.0-45.0); ABG PH 7.239 (7.350-7.450); ABG PO2 114.8 mmHg (75.0-100.0); AaDO2 250.2 mmHg; MetHb 0.4 % (0.0-1.5); PEEP,BG 0 cm H2O; SITE, ABG Right Radial; VT, ABG 500 mL
[2018-01-18] MEDS: BICALUTAMIDE 50 MG TABLET GT SCH (09:00)
[2018-01-18] MEDS: DOCUSATE SODIUM LIQ 100 MG/10 ML UDC NG SCH ×2 (09:00→16:00)
[2018-01-18] MEDS: TAMSULOSIN 0.4 MG CAP.SR.24H GT SCH (09:18)
[2018-01-18] MEDS: LACTOBACILLUS RHAMNOSUS GG 1 EACH CAP.SPRINK PO SCH ×2 (09:18→16:00)
[2018-01-18] MEDS: FAMOTIDINE (20 MG) 20 MG TABLET GT SCH (09:18)
[2018-01-18] MEDS: FLUCONAZOLE (100 MG) 100 MG TABLET PO SCH (09:18)
[2018-01-18] MEDS: VIT B CMPLX 3/FA/VIT C/BIOTIN 1 TAB TABLET GT SCH (09:18)
[2018-01-18] MEDS: ASCORBIC ACID 500 MG TABLET PO SCH (09:18)
[2018-01-18] MEDS: LINEZOLID RTU BAG 600 MG in PREMIX 1 EA IV SCH ×2 (09:19→20:59)
[2018-01-18] MEDS: PANTOPRAZOLE 40 MG/PACK PACK GT SCH (09:19)
[2018-01-18] MEDS: PROSOURCE / PROSTAT (PYXIS) 30 ML UDC GT SCH ×3 (09:20→16:00)
[2018-01-18] MEDS: CADEXOMER IODINE 40 GM TUBE TP SCH (09:23)
[2018-01-18] MEDS: diphenhydrAMINE HCL 25 MG CAPSULE PO PRN ×2 (09:31→16:01)
--- NOTE | 2018-01-18 14:43 | NUR ---
PREANALYTICS TEAM LEAD NOTE SPOKE WITH PT'S DAUGHTERS (TABITHA, AND MIREILLE) DURING SHIFT BOTH WERE UPDATED ON PT'S CONDITION AND HER QUESTIONS ANSWERED TO THEIR SATISFACTION.
[2018-01-18] MEDS ORDERED: EPOETIN ALFA (10,000 UNIT) 10,000 UNIT/ML VIAL SQ ONE (15:00)
[2018-01-18] MEDS: ALBUMIN 25% 25 GM in PREMIX 1 EA IV PRN ×2 (15:07→15:08)
[2018-01-18] MEDS: TRIAMCINOLONE ACETONIDE 0.1% CR 15 GM TUBE TP SCH (17:30)
--- NOTE | 2018-01-18 17:49 | NUR ---
RT END OF THE SHIFT REPORT, PT. 82 Y OLD MALE REMAIN TRACHED SHILEY # 8 ON VENT WITH NOTED SETTINGS. ALARMS ARE SET AND AUDIBLE WITH AMBU BAG AT THE BEDSIDE. LAUNCHMAN CUFF PRESSURE CHECKED. VENT IS PLUGGED INTO RED OUTLET. B/S BILATERALLY RHONCHI SX MODERATE THICK BLOODY RED SECRETIONS. NO RESPIRATORY DISTRESS NOTED T/O SHIFT, X2 HME CHANGED. PT. REMAIN STABLE. CHANGES PER DR. MENDOZA REPORT WILL PASS TO PM SHIFT. Addendum: 01/18/18 at 1751 by ERWIN CHARLTON RT Amended: Links added.
[2018-01-18] MEDS: LORATADINE 10 MG TABLET PO SCH (18:23)
--- NOTE | 2018-01-18 18:41 | NUR ---
ALL TERRAIN VEHICLE RACER NOTE PT REMAINS ALERT/ORIENTED, HYPOTENSIVE WITH PRESSOR SUPPORT, AFIB ON TELE. TUBE FEEDING RESUMED ORDERED. TOLERATING ORDERED VENT SETTINGS. PICC LINE INSERTED ON TENZIN. PT'S CARE WILL BE ENDORSED TO CERTIFIED PHARMACIST ASSISTANT RN FOR CONTINUITY OF CARE. BED IN LOW AND LOCKED POSITION. CALL LIGHT WITHIN REACH.
[2018-01-18] MEDS: NOREPINEPHRINE 16 MG in IV D5W 500 ML IV PRN ×2 (18:48→19:57)
--- NOTE | 2018-01-18 19:30 | NUR ---
ALUMNAE SECRETARY NOTES RECEIVED REPORT FROM DAY SHIFT RN. EYES OPENS SPONTANEOUSLY, DOES NOT TRACK. DOES NOT FOLLOW COMMANDS. PATIENT ON VENT TO TRACH WITH MODERATE AMOUNT OF BLOOD LOCATED IN TRACH TUBING, SUCTIONED BY RT WITH SCANT TO MODERATE AMOUNT OF BLOODY SECRETIONS. MAINTAINING SPO2 OF 100% ON 60% FIO2. ON LEVOFED DRIP RUNNING AT 34MCG PER HOUR TO MAINTAIN SBP > 90MMHG WITH MAP > 65. ON TUBE FEEDING RUNNING NOVASOURCE RENAL ON RATE OF 20ML PER HOUR. MONITOR SHOWS AFIB WITH RVR > 100
--- NOTE | 2018-01-18 20:00 | NUR ---
PT ON VENT A/C MODE. PT HAS A SHILEY 8 TRACH WHICH IS IN PLACE AND SECURE. PT ELAINE VENT SETTING WELL WITH NO RESPIRATORY DISTRESS NOTED ATT. PT DIMINISHED/RHONCHI B/S SX PT PRN RETURNING MODERATE BRIGHT RED BLOODY SECRETIONS. VENT ALARMS CHECKED FOUND TO BE TO BE FUNCTIONAL, AUDIBLE, AND WITHIN LIMITS. VENT PLUGGED INTO RED OUTLET. BVM AT BEDSIDE.
[2018-01-18] MEDS: COLISTIMETHATE SODIUM 100 MG in IV NS 0.9% 50 ML IV SCH (20:07)
[2018-01-18] MEDS: ATORVASTATIN 40 MG TABLET GT SCH (21:09)
[2018-01-18] MEDS: INSULIN REGULAR, HUMAN 100 UNIT/ML 3 ML VIAL SQ PRN (23:37)
[2018-01-19] VITALS (118 sets, daily range): BP systolic 53–128; BP diastolic 24–69
--- NOTE | 2018-01-19 01:50 | NUR ---
EDITING COMPUTER PUBLISHER NOTES NOTIFIED CAROL ABEBE. REGARDING LOW BP INSPITE BEING ON LEVOFED OF 38MCG PER MIN. AWAITING FOR ORDERS.
--- NOTE | 2018-01-19 02:41 | NUR ---
anesthesiology crna notes patient is awake and alert. with eyes open, tracks, and nods head appropriately to questions answerable by "yes/no"
[2018-01-19] MEDS: NOREPINEPHRINE 16 MG in IV D5W 500 ML IV PRN ×3 (03:34→16:54)
[2018-01-19] MEDS: SEVELAMER CARBONATE 0.8 GM POWD.PACK GT SCH ×3 (04:00→20:57)
[2018-01-19] MEDS: MIDODRINE HCL (5MG) 5 MG TABLET GT SCH ×3 (04:01→20:56)
[2018-01-19] MEDS ORDERED: PHENYLEPHRINE 10 MG/ML VIAL ONE (05:15)
[2018-01-19] MEDS: BLOOD SUGAR DIAGNOSTIC 1 EACH STRIP IN SCH ×4 (05:25→23:38)
[2018-01-19] MEDS: INSULIN REGULAR, HUMAN 100 UNIT/ML 3 ML VIAL SQ PRN ×4 (05:30→23:37)
[2018-01-19 05:42] LABS: BASOPHILS % (AUTO) 0.3 % (0.0-2.0); EOSINOPHILS % (AUTO) 15.9 % (0.0-6.0); HEMATOCRIT 23 % (39-51); HEMOGLOBIN 7.3 g/dL (13.5-17.5); LYMPHOCYTES # (AUTO) 0.5 /CMM (0.8-4.8); LYMPHOCYTES % (AUTO) 3.2 % (20.0-44.0); MEAN CORPUSCULAR HGB CONC 32 g/dl (31.0-36.0); MEAN CORPUSCULAR VOLUME 92 fL (80-96); MONOCYTES # (AUTO) 0.9 /CMM (0.1-1.30); MONOCYTES % (AUTO) 5.5 % (2.0-12.0); NEUTROPHILS # (AUTO) 12.3 /CMM (1.8-8.9); NEUTROPHILS % (AUTO) 75.1 % (43.0-81.0); PLATELET COUNT (AUTO) 120 /CMM (150-450); RDW COEFFICIENT OF VARIATION 21.4 (11.5-15.0); RED BLOOD CELL COUNT(AUTO) 2.48 MIL/uL (4.5-6.0); WHITE BLOOD COUNT (AUTO) 16.3 K/uL (4.3-11.0)
[2018-01-19 05:49] LABS: CARBON DIOXIDE 32 mmol/L (21-32); CHLORIDE 100 mmol/L (98-107); GLUCOSE 149 mg/dL (74-106); POTASSIUM 3.6 mmol/L (3.5-5.1); SODIUM SERUM 138 mmol/L (136-145); UREA NITROGEN, BLOOD 67 mg/dL (7-18)
[2018-01-19 06:28] LABS: BAND % (MANUAL) 10 % (0.0-5.0); EOSINOPHILS % (MANUAL) 11 % (0-4); LYMPHOCYTES % (MANUAL) 9 % (16-48); MONOCYTES % (MANUAL) 9 % (0-11.0); NEUTROPHILS % (MANUAL) 61 (42-76)
--- NOTE | 2018-01-19 06:37 | NUR ---
tele rn notes Gtube with 0 residual. Increased Gtube feeding Novasource Renal to 40ml per hour. feeding tolerated well
--- NOTE | 2018-01-19 06:43 | NUR ---
MITER CUTTER CLOSING NOTES PATIENT IS ALERT AND ORIENTED X 1. REMAINS ON GTUBE FEEDING RUNNING NOVASOURCE AT 40ML PER HOUR. NO RESIDUALS, TOLERATED FEEDING WELL. DECREASED BLOOD ON TRACHEAL SECRETIONS TO MINIMAL AMOUNT, PATIENT IS ON MECHANICAL VENTILATOR WITH O2 SAT OF 100% ON 60% FIO2. LEVOPHED IV STILL RUNNING ON LEFT ARM PICC LINE AT 40MCG PER MINUTE TO KEEP SBP > 90 AND MAP > 65.
--- NOTE | 2018-01-19 07:46 | NUR ---
INITIAL PRODUCT PROMOTER RETAIL PET NOTE RCVD PT AWAKE AND ALERT, ABLE TO FOLLOW COMMANDS. ST ON TELE. TOLERATING ORDERED VENT SETTINGS. PEG PLACEMENT VERIFIED BY AUSCULTATION/ASPIRATION. NO RESIDUAL OBTAINED. IV SITES C/D/I/PATENT. NO S/O INFILTRATION/PHLEBITIS OBSERVED UPON FLUSHING. PRESSORS INFUSING. WILL CONTINUE TO MONITOR PT FOR SAFETY AND COMFORT. CALL LIGHT WITHIN REACH. BED IN LOW AND LOCKED POSITION.
[2018-01-19] MEDS: LINEZOLID RTU BAG 600 MG in PREMIX 1 EA IV SCH ×2 (08:46→21:57)
[2018-01-19] MEDS: FAMOTIDINE (20 MG) 20 MG TABLET GT SCH (08:47)
[2018-01-19] MEDS: PANTOPRAZOLE 40 MG/PACK PACK GT SCH (08:47)
[2018-01-19] MEDS: FLUCONAZOLE (100 MG) 100 MG TABLET PO SCH (08:47)
[2018-01-19] MEDS: PROSOURCE / PROSTAT (PYXIS) 30 ML UDC GT SCH ×3 (08:47→17:47)
[2018-01-19] MEDS: BICALUTAMIDE 50 MG TABLET GT SCH (08:47)
[2018-01-19] MEDS: VIT B CMPLX 3/FA/VIT C/BIOTIN 1 TAB TABLET GT SCH (08:47)
[2018-01-19] MEDS: ASCORBIC ACID 500 MG TABLET PO SCH (08:47)
[2018-01-19] MEDS: LACTOBACILLUS RHAMNOSUS GG 1 EACH CAP.SPRINK PO SCH (08:47)
[2018-01-19] MEDS: LORATADINE 10 MG TABLET PO SCH (08:47)
[2018-01-19] MEDS: TAMSULOSIN 0.4 MG CAP.SR.24H GT SCH (08:47)
[2018-01-19] MEDS: DOCUSATE SODIUM LIQ 100 MG/10 ML UDC NG SCH ×2 (08:47→17:00)
[2018-01-19] MEDS: CADEXOMER IODINE 40 GM TUBE TP SCH (08:48)
[2018-01-19] MEDS: TRIAMCINOLONE ACETONIDE 0.1% CR 15 GM TUBE TP SCH ×3 (09:46→17:47)
[2018-01-19 13:13] LABS: BILIRUBIN,DIRECT 0.2 mg/dL (0.0-0.2); BILIRUBIN,TOTAL 0.7 mg/dL (0.2-1.0); TOTAL PROTEIN, SERUM 6.8 g/dL (6.4-8.2)
[2018-01-19 13:22] LABS: INR 1.29 (0.87-1.13)
[2018-01-19] MEDS: PHENYLEPHRINE 80 MG in IV NS 0.9% 250 ML IV PRN (15:25)
--- NOTE | 2018-01-19 16:15 | NUR ---
BORING MILL SET UP OPERATOR VERTICAL NOTE PT HAD EPISODE OF DECOMPENSATING QUICKLY AFTER VOMITING, RT CALLED AT BEDSIDE, PT WAS BAGGED AND PLACED AT 100 % FIO2, PULSES WERE PRESENT, BP MAINTAINED WITH PRESSORS. PT REGAINED CONSCIOUSNESS AND STABILIZED. PT'S TUBE FEEDING WAS HELD FOR NOW. WILL CONTINUE TO MONITOR.
[2018-01-19] MEDS: RENAL NOVASOURCE 1,000 ML BOTTLE GT PRN (17:47)
[2018-01-19] MEDS: ONDANSETRON HCL/PF 4 MG/2 ML VIAL IVP PRN (17:47)
--- NOTE | 2018-01-19 18:23 | NUR ---
HOT DIMPLING MACHINE OPERATOR NOTE PT AWAKE AT THIS TIME, PT'S DAUGHTER, MIREILLE AT BEDSIDE UPDATED ON PT'S CONDITION AND DETERIORATION SINCE THIS AM. SHE ACKNOWLEDGED. ST ON TELE TOLERATING ORDERED VENT SETTINGS. IV SITES C/D/I/PATENT. TUBE FEEDING RE-STARTED. BEAR HUGGER RE-STARTED SINCE CORE TEMP WAS TRENDING DOWN. PT'S CARE WILL BE ENDORSED TO CLINICAL INTERVIEWER RN FOR CONTINUITY OF CARE. BED IN LOW AND LOCKED POSITION. CALL LIGHT WITHIN REACH. SALINAS GARCIA AT BEDSIDE REQUESTED TO CALL PHARMACIST TO REVIEW PT'S MEDICATIONS TO DETERMINE WHAT MEDICATIONS ARE CAUSING A POSSIBLE ALLERGIC REACTION. BRET, RN CALLED AND SPOKE WITH ALAINA WHO WILL REVIEW PT'S MEDS.
--- NOTE | 2018-01-19 19:00 | NUR ---
ICU/RN RECEIVED REPORT FROM DAY SHIFT ESTIVEN MANRIQUEZPT ON VENT PER TRACH W/FIO2 50%.SUCTIONED FOR SCANT AMT BLOODY SECRETIONS FROM TRACH,MIN.ORAL SECRETIONS.ORAL CARE DONE. ON DOUBLE VASOPRESSORS,MAX LEVOPHED AT 40MCG/MIN,PHENYLEPHRINE INCREASED TO 140 MCG/MIN.WILL CONTINUE TO ADJUST PHENYL EPHRINE TO MAINTAIN SBP>90MMHG.ON TUBE FEEDING VIA OGT AT 40 ML/HR.CHECKED FOR PATENCY AND RESIDUAL,NOTHING ASPIRATED. Addendum: 01/19/18 at 7318 by SHYANN STEPHEN RN GT AND NOT OGT.
--- NOTE | 2018-01-19 20:30 | NUR ---
ICU/RN SAT=86%.RT AT BEDSIDE FIO2 INCREASED 80%.CONTINUES TO INCREASE PHENLYEPHRINE [id number].TO KEEP SBP 90 OR >.MONITOR SHOWS SINUS RHYTHM W/ BBB.
[2018-01-19] MEDS: COLISTIMETHATE SODIUM 100 MG in IV NS 0.9% 50 ML IV SCH (20:56)
[2018-01-19] MEDS: ATORVASTATIN 40 MG TABLET GT SCH (21:57)
[2018-01-20] VITALS (121 sets, daily range): BP systolic 44–266; BP diastolic 12–199
[2018-01-20] MEDS: NOREPINEPHRINE 16 MG in IV D5W 500 ML IV PRN ×4 (00:52→20:24)
[2018-01-20] MEDS: PHENYLEPHRINE 80 MG in IV NS 0.9% 250 ML IV PRN ×4 (00:54→20:12)
[2018-01-20] MEDS: SEVELAMER CARBONATE 0.8 GM POWD.PACK GT SCH ×3 (05:04→20:59)
[2018-01-20] MEDS: MIDODRINE HCL (5MG) 5 MG TABLET GT SCH ×3 (05:05→21:01)
[2018-01-20] MEDS: BLOOD SUGAR DIAGNOSTIC 1 EACH STRIP IN SCH ×4 (06:18→23:37)
[2018-01-20] MEDS: INSULIN REGULAR, HUMAN 100 UNIT/ML 3 ML VIAL SQ PRN ×4 (06:20→23:39)
--- NOTE | 2018-01-20 06:45 | NUR ---
ICU/RN PT REMAINS ON LEVOPHED AT 40MCG/MIN PHENYLEPHRINE AT 210MCG/MIN.SEE IV SHEET FOR ADJUSTMENT OF PHENYLEPHRINE.RESPIRATIONS SHALLOW AT 24/ML/MIN.SUCTIONED FOR COPIOUS AMT. OF BLOODY SECRETIONS FROM ETT LARGE AMT.FROM MOUTH.BLEEDING AROUND TRACH SITE,TRACH DRESSING CHANGED.
--- NOTE | 2018-01-20 07:15 | NUR ---
ICU/RN REPORT AND CARE OF PT. GIVEN TO LISETTE JEAN-BAPTISTE.
[2018-01-20] MEDS: ONDANSETRON HCL/PF 4 MG/2 ML VIAL IVP PRN (07:38)
--- NOTE | 2018-01-20 07:43 | NUR ---
PT AWAKE, MAKES BRIF EYE CONTACT, DOES NOT REZONED TO SIMPLE QUESTION. BREATHING LABORED, RR 14, AC MODE 500, 80 %. SUCTIONED GENTLLY VIA TRACK AND ORALLY FOR LARGE AMOUNT OF BLOODY SECRETIONS. NE EPISODE OF VOMITING GASTRIC CONTENT REPORTED BY NIGHT RN, PT MEDICATED WITH ZOFRAN IV. PRESSORS CONTINUED PER IV SPREAD SHEET. WILL ASSIST WITH BED/BATH WHEN MORE STABLE.
--- NOTE | 2018-01-20 08:40 | NUR ---
Vent changes made below per Dr. Hays AC 28, 600, 100%, 0 PEEP. Addendum: 01/20/18 at 1705 by ADRIANA ROBBINS RT Amended: Links added.
[2018-01-20 08:45] LABS: ABG BASE EXCESS -3.2 mmol/L; ABG OXYGEN SATURATION 91.3 % (92.0-98.5); ABG PCO2 76.6 mmHg (35.0-45.0); ABG PH 7.147 (7.350-7.450); ABG PO2 73.3 mmHg (75.0-100.0); AaDO2 416.7 mmHg; COHb 0.4 % (0.5-1.5); MetHb 0.4 % (0.0-1.5); O2Hb 90.6 % (94.0-97.0); PEEP,BG 0 cm H2O; SITE, ABG Left Radial
[2018-01-20] MEDS ORDERED: IV NS 0.9% 500 ML IV ONE (09:00)
[2018-01-20] MEDS: FAMOTIDINE (20 MG) 20 MG TABLET GT SCH (09:27)
[2018-01-20] MEDS: PANTOPRAZOLE 40 MG/PACK PACK GT SCH (09:27)
[2018-01-20] MEDS: LORATADINE 10 MG TABLET PO SCH (09:27)
[2018-01-20] MEDS: DOCUSATE SODIUM LIQ 100 MG/10 ML UDC NG SCH ×2 (09:27→17:45)
[2018-01-20] MEDS: BICALUTAMIDE 50 MG TABLET GT SCH (09:27)
[2018-01-20] MEDS: TAMSULOSIN 0.4 MG CAP.SR.24H GT SCH (09:27)
[2018-01-20] MEDS: HYDROCORTISONE SOD SUCCINATE 100 MG/2 ML VIAL IV SCH ×3 (09:28→17:44)
[2018-01-20] MEDS: ASCORBIC ACID 500 MG TABLET PO SCH (09:28)
[2018-01-20] MEDS: FLUCONAZOLE (100 MG) 100 MG TABLET PO SCH (09:28)
[2018-01-20] MEDS: LINEZOLID RTU BAG 600 MG in PREMIX 1 EA IV SCH ×2 (09:32→21:32)
[2018-01-20] MEDS: VIT B CMPLX 3/FA/VIT C/BIOTIN 1 TAB TABLET GT SCH (09:33)
[2018-01-20] MEDS: PROSOURCE / PROSTAT (PYXIS) 30 ML UDC GT SCH ×3 (09:34→17:44)
[2018-01-20] MEDS: MINERAL OIL/PETROLATUM,WHITE 120 GM JAR TP PRN (09:36)
[2018-01-20] MEDS: CADEXOMER IODINE 40 GM TUBE TP SCH (09:37)
[2018-01-20] MEDS: TRIAMCINOLONE ACETONIDE 0.1% CR 15 GM TUBE TP SCH ×3 (09:39→17:46)
[2018-01-20] MEDS: Z GUARD REMEDY 2 OZ OINT TP PRN (09:40)
[2018-01-20 10:39] LABS: BASOPHILS # (AUTO) 0.7 /CMM (0.0-0.2); BASOPHILS % (AUTO) 4.3 % (0.0-2.0); EOSINOPHILS % (AUTO) 8.1 % (0.0-6.0); HEMOGLOBIN 7.1 g/dL (13.5-17.5); LYMPHOCYTES # (AUTO) 0.8 /CMM (0.8-4.8); LYMPHOCYTES % (AUTO) 4.5 % (20.0-44.0); MEAN CORPUSCULAR HGB CONC 37 g/dl (31.0-36.0); MEAN CORPUSCULAR VOLUME 91 fL (80-96); MONOCYTES # (AUTO) 1.2 /CMM (0.1-1.30); MONOCYTES % (AUTO) 6.9 % (2.0-12.0); NEUTROPHILS # (AUTO) 12.8 /CMM (1.8-8.9); NEUTROPHILS % (AUTO) 76.2 % (43.0-81.0); PLATELET COUNT (AUTO) 94 /CMM (150-450); RDW COEFFICIENT OF VARIATION 20.2 (11.5-15.0); RED BLOOD CELL COUNT(AUTO) 2.11 MIL/uL (4.5-6.0); WHITE BLOOD COUNT (AUTO) 16.9 K/uL (4.3-11.0)
[2018-01-20 10:41] LABS: CALCIUM, SERUM 7.9 mg/dL (8.5-10.1); CARBON DIOXIDE 26 mmol/L (21-32); CHLORIDE 97 mmol/L (98-107); CREATININE 3.7 mg/dL (0.6-1.3); GLUCOSE 118 mg/dL (74-106); POTASSIUM 3.9 mmol/L (3.5-5.1); SODIUM SERUM 134 mmol/L (136-145)
[2018-01-20 10:42] LABS: HEMATOCRIT 19 % (39-51)
[2018-01-20 10:58] LABS: UREA NITROGEN, BLOOD 83 mg/dL (7-18)
[2018-01-20 11:29] LABS: ABG BASE EXCESS -4.1 mmol/L; ABG OXYGEN SATURATION 97.3 % (92.0-98.5); ABG PCO2 49.7 mmHg (35.0-45.0); ABG PH 7.274 (7.350-7.450); ABG PO2 108.5 mmHg (75.0-100.0); AaDO2 554.8 mmHg; COHb 0.2 % (0.5-1.5); MetHb 0.9 % (0.0-1.5); O2Hb 96.2 % (94.0-97.0); PEEP,BG 0 cm H2O; SITE, ABG Right Femoral; VENT MODE, BG AC 28 600 100%
[2018-01-20] MEDS ORDERED: PHYTONADIONE 5 MG TABLET GT ONE (11:30)
[2018-01-20 11:59] LABS: BAND % (MANUAL) 8 % (0.0-5.0); EOSINOPHILS % (MANUAL) 2 % (0-4); LYMPHOCYTES % (MANUAL) 12 % (16-48); MONOCYTES % (MANUAL) 10 % (0-11.0); MYELOCYTES % 2 % (0-0); NEUTROPHILS % (MANUAL) 66 (42-76)
[2018-01-20] MEDS: ALBUMIN 25% 25 GM in PREMIX 1 EA IV PRN ×2 (14:00→15:48)
--- NOTE | 2018-01-20 18:11 | NUR ---
RT NOTE PATIENT RECEIVED TRACHED ON MECHANICAL VENTILATION. AMBU BAG @ HOB. SUCTION DONE, TRACH SECURED AND PATENT AT ALL TIMES. MODERATE THICK BLOODY SECRETIONS NOTED. LAVAGED WITH NORMAL SALINE T/O SHIFT. ALARMS ON AND AUDIBLE. VENT PLUGGED INTO RED OUTLET. NO SOB NOTED T/O SHIFT. VENT CHANGES @ 0840. AC 28, 600, 100%, 0 PEEP. PATIENT TOLERATED WELL. MONITORED CLOSELY. Addendum: 01/20/18 at 1813 by ADRIANA ROBBINS RT Amended: Links added.
--- NOTE | 2018-01-20 19:30 | NUR ---
MARKETING REPRESENTATIVE: RECEIVED TRACH TO VENT PT WT SETTINGS ORDERED. NO ACUTE DISTRESS, NO EVIDENCE OF DISCOMFORT. MODERATE TRACHEAL BLEEDING NOTED. OPENS EYES SPONTANEOUSLY, TRACKS BUT DOES NOT FOLLOW SIMPLE COMMANDS. UNCONTROLLED A. FIB ON INTERNATIONAL SALES REPRESENTATIVE WT HR LESS THAN 120 WT BBB. TEMP. WNL. ON LEVOPHED AT 40MCG/MIN AND PHENYLEPHRINE AT 200MCG/MIN FOR BP SUPPORT WT NO S/S OF INFILTRATION ON IV SITES. GT CLAMPED AT THIS TIME. HD CATH ON RT. UPPER CHEST INTACT WT NO BLEEDING. HOB AT 35 DEGREES. SAFETY PRECAUTION NOTED. WILL CONTINUE TO MONITOR.
[2018-01-20] MEDS: COLISTIMETHATE SODIUM 100 MG in IV NS 0.9% 50 ML IV SCH (20:24)
--- NOTE | 2018-01-20 20:43 | NUR ---
PT RECEIVED TRACHED ON VENT. PT TOLERATING VENT SETTINGS. NO RESP DISTRESS. SX'D FOR MOD AMT OF BLOODY SECRETIONS. VENT ALARMS SET AND AUDIBLE. VENT PLUGGED INTO RED OUTLET. TRACH CUFF CARD RUNNER, SECURED. WILL CONTINUE TO MONITOR. Addendum: 01/20/18 at 2044 by COLTEN EUGENE RT Amended: Links added.
[2018-01-20] MEDS: ATORVASTATIN 40 MG TABLET GT SCH (21:02)
[2018-01-20] MEDS: IV NS 0.9% 250 ML IV PRN (21:40)
[2018-01-21] VITALS (105 sets, daily range): BP systolic 42–173; BP diastolic 14–110
[2018-01-21] MEDS: PHENYLEPHRINE 80 MG in IV NS 0.9% 250 ML IV PRN ×2 (02:11→08:56)
[2018-01-21] MEDS: NOREPINEPHRINE 16 MG in IV D5W 500 ML IV PRN ×3 (02:12→18:06)
--- NOTE | 2018-01-21 02:30 | NUR ---
ROPING TENDER: BED BATH GIVEN AND TOLERATED FAIRLY. NO SIGNIFICANT SYDNEE.
[2018-01-21] MEDS: SEVELAMER CARBONATE 0.8 GM POWD.PACK GT SCH ×3 (05:23→21:02)
[2018-01-21] MEDS: MIDODRINE HCL (5MG) 5 MG TABLET GT SCH ×3 (05:29→21:03)
[2018-01-21] MEDS: BLOOD SUGAR DIAGNOSTIC 1 EACH STRIP IN SCH ×3 (05:30→17:30)
[2018-01-21] MEDS: INSULIN REGULAR, HUMAN 100 UNIT/ML 3 ML VIAL SQ PRN ×2 (05:33→12:30)
[2018-01-21 05:48] LABS: BASOPHILS # (AUTO) 0.1 /CMM (0.0-0.2); BASOPHILS % (AUTO) 0.6 % (0.0-2.0); EOSINOPHILS % (AUTO) 0.4 % (0.0-6.0); HEMATOCRIT 24 % (39-51); LYMPHOCYTES # (AUTO) 0.7 /CMM (0.8-4.8); LYMPHOCYTES % (AUTO) 4.8 % (20.0-44.0); MEAN CORPUSCULAR HGB CONC 34 g/dl (31.0-36.0); MEAN CORPUSCULAR VOLUME 91 fL (80-96); MONOCYTES # (AUTO) 0.8 /CMM (0.1-1.30); MONOCYTES % (AUTO) 5.7 % (2.0-12.0); NEUTROPHILS # (AUTO) 13.2 /CMM (1.8-8.9); NEUTROPHILS % (AUTO) 88.5 % (43.0-81.0); PLATELET COUNT (AUTO) 106 /CMM (150-450); RDW COEFFICIENT OF VARIATION 20.6 (11.5-15.0); RED BLOOD CELL COUNT(AUTO) 2.59 MIL/uL (4.5-6.0); WHITE BLOOD COUNT (AUTO) 14.9 K/uL (4.3-11.0)
--- NOTE | 2018-01-21 05:50 | NUR ---
CHAIN SPLITTER: REMAINED ALERT TO SELF. STILL ON LEVOPHED AT 40MCG/MIN AND NEOSYNEPHRINE AT 200MCG/MIN. STILL NOTED WT TRACHEAL BLEEDING.
[2018-01-21 05:59] LABS: CALCIUM, SERUM 8.4 mg/dL (8.5-10.1); CARBON DIOXIDE 24 mmol/L (21-32); CHLORIDE 94 mmol/L (98-107); CREATININE 3.2 mg/dL (0.6-1.3); GLUCOSE 171 mg/dL (74-106); MAGNESIUM 2.1 mg/dL (1.8-2.4); PHOSPHORUS 3.7 mg/dL (2.5-4.9); POTASSIUM 4.1 mmol/L (3.5-5.1); SODIUM SERUM 131 mmol/L (136-145); UREA NITROGEN, BLOOD 78 mg/dL (7-18)
[2018-01-21] MEDS: FAMOTIDINE (20 MG) 20 MG TABLET GT SCH (08:56)
[2018-01-21] MEDS: TAMSULOSIN 0.4 MG CAP.SR.24H GT SCH (08:57)
[2018-01-21] MEDS: BICALUTAMIDE 50 MG TABLET GT SCH (08:57)
[2018-01-21] MEDS: DOCUSATE SODIUM LIQ 100 MG/10 ML UDC NG SCH ×2 (08:57→17:00)
[2018-01-21] MEDS: FLUCONAZOLE (100 MG) 100 MG TABLET PO SCH (08:57)
[2018-01-21] MEDS: PANTOPRAZOLE 40 MG/PACK PACK GT SCH (08:57)
[2018-01-21] MEDS: LORATADINE 10 MG TABLET PO SCH (08:57)
[2018-01-21] MEDS: ASCORBIC ACID 500 MG TABLET PO SCH (08:57)
[2018-01-21] MEDS: VIT B CMPLX 3/FA/VIT C/BIOTIN 1 TAB TABLET GT SCH (08:57)
[2018-01-21] MEDS: LINEZOLID RTU BAG 600 MG in PREMIX 1 EA IV SCH ×2 (09:00→21:02)
[2018-01-21] MEDS: HYDROCORTISONE SOD SUCCINATE 100 MG/2 ML VIAL IV SCH ×3 (09:00→17:30)
[2018-01-21] MEDS: PROSOURCE / PROSTAT (PYXIS) 30 ML UDC GT SCH ×3 (09:00→17:30)
--- NOTE | 2018-01-21 09:00 | NUR ---
Pt is aox1, does not indicate pain or sob on curet settings. will continue to wean off pressors as condition permits.
[2018-01-21] MEDS: CADEXOMER IODINE 40 GM TUBE TP SCH (09:01)
[2018-01-21] MEDS: TRIAMCINOLONE ACETONIDE 0.1% CR 15 GM TUBE TP SCH ×3 (09:01→17:30)
[2018-01-21] MEDS: diphenhydrAMINE HCL 25 MG CAPSULE PO PRN (09:11)
[2018-01-21 13:27] LABS: ABG BASE EXCESS -3.6 mmol/L; ABG OXYGEN SATURATION 92.7 % (92.0-98.5); ABG PCO2 40.9 mmHg (35.0-45.0); ABG PH 7.344 (7.350-7.450); ABG PO2 73.2 mmHg (75.0-100.0); AaDO2 381.9 mmHg; COHb 0.3 % (0.5-1.5); MetHb 0.9 % (0.0-1.5); O2Hb 91.6 % (94.0-97.0); PEEP,BG 0 cm H2O; SITE, ABG Right Radial; VENT MODE, BG AC 28
[2018-01-21] MEDS: ONDANSETRON HCL/PF 4 MG/2 ML VIAL IVP PRN (15:44)
--- NOTE | 2018-01-21 16:00 | NUR ---
consent obtained for new picc line from daughter witnessed by 2 rn. new picc placed confirmed with cxr.
[2018-01-21] MEDS ORDERED: POLYVINYL ALCOHOL 15 ML BOTTLE EACHEYE PRN (18:00)
--- NOTE | 2018-01-21 18:00 | NUR ---
pt remains aox1, does not indicate pain or sob on curet settings. will continue to wean off pressors as condition permits.
--- NOTE | 2018-01-21 19:38 | NUR ---
agricultural researcher. initial assessment. receive the pt rest on the bed. non verbal.trach to vent connected. aleida#8,ac 28,tv 600,fio2 70%, sat 98%. no acute distress noted. cardiac cath lab manager showing afib. controlled. iv lt upper arm picc line levophed 8mcg/min. hob elevated. gt clamped. hob elevated. will continue to monitor vitals.
[2018-01-21] MEDS: COLISTIMETHATE SODIUM 100 MG in IV NS 0.9% 50 ML IV SCH (21:02)
[2018-01-21] MEDS: ATORVASTATIN 40 MG TABLET GT SCH (21:05)
--- NOTE | 2018-01-21 23:47 | NUR ---
DRIVER LICENSE AGENT ASSUMED CARE OF PT AT THIS TIME.
[2018-01-22] VITALS (99 sets, daily range): BP systolic 89–122; BP diastolic 25–66
[2018-01-22] MEDS: BLOOD SUGAR DIAGNOSTIC 1 EACH STRIP IN SCH ×4 (00:34→17:30)
--- NOTE | 2018-01-22 00:34 | NUR ---
INVENTORY ASSOCIATE AND DRIVER NON ADMIT STK MEDS FOR PT SAFETY.
[2018-01-22] MEDS: SEVELAMER CARBONATE 0.8 GM POWD.PACK GT SCH ×3 (05:41→20:31)
[2018-01-22] MEDS: MIDODRINE HCL (5MG) 5 MG TABLET GT SCH ×3 (05:42→20:31)
--- NOTE | 2018-01-22 07:45 | NUR ---
RN NOTES RECEIVED PT IN BED, OBTUNDED. TRACHED, CONNECTED TO VENT SETTINGS PRESCRIBED. AC 28 TV 600 FIO2 70% PEEP 0. SUCTIONED FOR AIRWAY CLEARANCE. AFIB ON PSYCH COORDINATOR HR 112 THIS TIME. TENZIN PICC RUNNING LEVOPHED@6MCG/MIN. BAREHUGGER IN PLACE. REPOSITIONED FOR COMFORT. SAFETY MAINTAINED. ISOLATION PRECAUTION OBSERVED. WILL CONT TO MONITOR
[2018-01-22] MEDS: Z GUARD REMEDY 2 OZ OINT TP PRN (08:57)
[2018-01-22] MEDS: CADEXOMER IODINE 40 GM TUBE TP SCH (08:57)
[2018-01-22] MEDS: MINERAL OIL/PETROLATUM,WHITE 120 GM JAR TP PRN (08:58)
[2018-01-22] MEDS: TRIAMCINOLONE ACETONIDE 0.1% CR 15 GM TUBE TP SCH ×4 (09:00→17:31)
[2018-01-22] MEDS: BICALUTAMIDE 50 MG TABLET GT SCH (09:11)
[2018-01-22] MEDS: LINEZOLID RTU BAG 600 MG in PREMIX 1 EA IV SCH ×2 (09:11→20:30)
[2018-01-22] MEDS: HYDROCORTISONE SOD SUCCINATE 100 MG/2 ML VIAL IV SCH ×3 (09:12→17:30)
[2018-01-22] MEDS: DOCUSATE SODIUM LIQ 100 MG/10 ML UDC NG SCH ×2 (09:12→17:30)
[2018-01-22] MEDS: FLUCONAZOLE (100 MG) 100 MG TABLET PO SCH (09:12)
[2018-01-22] MEDS: ASCORBIC ACID 500 MG TABLET PO SCH (09:12)
[2018-01-22] MEDS: LORATADINE 10 MG TABLET PO SCH (09:12)
[2018-01-22] MEDS: TAMSULOSIN 0.4 MG CAP.SR.24H GT SCH (09:12)
[2018-01-22] MEDS: PANTOPRAZOLE 40 MG/PACK PACK GT SCH (09:12)
[2018-01-22] MEDS: FAMOTIDINE (20 MG) 20 MG TABLET GT SCH (09:12)
[2018-01-22] MEDS: VIT B CMPLX 3/FA/VIT C/BIOTIN 1 TAB TABLET GT SCH (09:12)
[2018-01-22 10:12] LABS: BASOPHILS # (AUTO) 0.1 /CMM (0.0-0.2); BASOPHILS % (AUTO) 1.2 % (0.0-2.0); LYMPHOCYTES # (AUTO) 0.8 /CMM (0.8-4.8); LYMPHOCYTES % (AUTO) 6.5 % (20.0-44.0); MEAN CORPUSCULAR HGB CONC 34 g/dl (31.0-36.0); MEAN CORPUSCULAR VOLUME 90 fL (80-96); MONOCYTES # (AUTO) 0.7 /CMM (0.1-1.30); MONOCYTES % (AUTO) 6.1 % (2.0-12.0); NEUTROPHILS # (AUTO) 9.9 /CMM (1.8-8.9); NEUTROPHILS % (AUTO) 86.2 % (43.0-81.0); PLATELET COUNT (AUTO) 91 /CMM (150-450); RDW COEFFICIENT OF VARIATION 20.6 (11.5-15.0); RED BLOOD CELL COUNT(AUTO) 2.06 MIL/uL (4.5-6.0); WHITE BLOOD COUNT (AUTO) 11.5 K/uL (4.3-11.0)
[2018-01-22 10:18] LABS: HEMATOCRIT 18 % (39-51); HEMOGLOBIN 6.2 g/dL (13.5-17.5)
[2018-01-22 10:25] LABS: CALCIUM, SERUM 7.9 mg/dL (8.5-10.1); CARBON DIOXIDE 21 mmol/L (21-32); CHLORIDE 95 mmol/L (98-107); CREATININE 3.9 mg/dL (0.6-1.3); GLUCOSE 91 mg/dL (74-106); POTASSIUM 3.6 mmol/L (3.5-5.1); SODIUM SERUM 133 mmol/L (136-145)
[2018-01-22 10:26] LABS: UREA NITROGEN, BLOOD 108 mg/dL (7-18)
--- NOTE | 2018-01-22 10:30 | NUR ---
RN NOTES RECEIVED CALL FROM LAB, HEMOGLOBIN OF 6.2, RELAYED TO DR KENT WITH NEW ORDER TO GIVE 1UNIT PRBC. ORDER NOTED AND CARRIED OUT. CALLED LAB STAT
[2018-01-22 13:31] LABS: BAND % (MANUAL) 21 % (0.0-5.0); LYMPHOCYTES % (MANUAL) 3 % (16-48); MONOCYTES % (MANUAL) 5 % (0-11.0); NEUTROPHILS % (MANUAL) 71 (42-76)
[2018-01-22] MEDS: PROSOURCE / PROSTAT (PYXIS) 30 ML UDC GT SCH ×5 (15:07→17:30)
--- NOTE | 2018-01-22 19:17 | NUR ---
RN NOTES PT IN BED, RYLEY HERNANDEZ DISTRESS NOTED. ON LEVOPHED @4MCG/MIN, BP STABLE AT THIS TIME. S/P 1 UNIT PRBC, NO TRANSFUSION REACTION NOTED. ALL DUE MEDS GIVEN, NEEDS ATTENDED. BED BATH PROVIDED, WOUND CARE RENDERED. VS STABLE AT THIS TIME, LATEST TEMP 97.8. ENDORSED TO MOMO JEAN-BAPTISTE FOR CONTINUITY OF CARE
[2018-01-22] MEDS: COLISTIMETHATE SODIUM 100 MG in IV NS 0.9% 50 ML IV SCH (20:30)
[2018-01-22] MEDS: ATORVASTATIN 40 MG TABLET GT SCH (22:45)
[2018-01-23] VITALS (36 sets, daily range): BP systolic 73–128; BP diastolic 36–68
[2018-01-23] MEDS: BLOOD SUGAR DIAGNOSTIC 1 EACH STRIP IN SCH ×5 (01:04→23:11)
[2018-01-23] MEDS: INSULIN REGULAR, HUMAN 100 UNIT/ML 3 ML VIAL SQ PRN ×3 (01:07→18:16)
[2018-01-23 04:34] LABS: BASOPHILS % (AUTO) 0.3 % (0.0-2.0); EOSINOPHILS % (AUTO) 0.1 % (0.0-6.0); HEMATOCRIT 22 % (39-51); HEMOGLOBIN 7.5 g/dL (13.5-17.5); LYMPHOCYTES # (AUTO) 0.5 /CMM (0.8-4.8); LYMPHOCYTES % (AUTO) 4.8 % (20.0-44.0); MEAN CORPUSCULAR HGB CONC 34 g/dl (31.0-36.0); MEAN CORPUSCULAR VOLUME 90 fL (80-96); MONOCYTES # (AUTO) 0.4 /CMM (0.1-1.30); MONOCYTES % (AUTO) 4.2 % (2.0-12.0); NEUTROPHILS # (AUTO) 9.1 /CMM (1.8-8.9); NEUTROPHILS % (AUTO) 90.6 % (43.0-81.0); PLATELET COUNT (AUTO) 74 /CMM (150-450); RDW COEFFICIENT OF VARIATION 19.1 (11.5-15.0); RED BLOOD CELL COUNT(AUTO) 2.48 MIL/uL (4.5-6.0)
[2018-01-23] MEDS: MIDODRINE HCL (5MG) 5 MG TABLET GT SCH ×3 (05:10→21:18)
[2018-01-23] MEDS: SEVELAMER CARBONATE 0.8 GM POWD.PACK GT SCH ×3 (05:10→21:18)
[2018-01-23 05:21] LABS: CALCIUM, SERUM 7.7 mg/dL (8.5-10.1); CARBON DIOXIDE 28 mmol/L (21-32); CHLORIDE 102 mmol/L (98-107); CREATININE 2.4 mg/dL (0.6-1.3); GLUCOSE 118 mg/dL (74-106); POTASSIUM 3.5 mmol/L (3.5-5.1); SODIUM SERUM 136 mmol/L (136-145); UREA NITROGEN, BLOOD 62 mg/dL (7-18)
--- NOTE | 2018-01-23 05:41 | NUR ---
PATIENT RECEIVED ON MECHANICAL VENTILATOR PLUGGED INTO RED OUTLET. VENT ALARMS CHECKED & AUDIBLE THROUGHOUT ICU. CUFF PRESSURE CHECKED. BILATERAL BREATH SOUNDS AUSCULTATED. PT SUCTIONED Q2 + PRN FOR MODERATE AMOUNT OF PALE YELLOW SEMI-THICK SECRETIONS. AMBU BAG AT HOB. Addendum: 01/23/18 at 0541 by MARILOU ARAUZ RT Amended: Links added.
[2018-01-23 05:50] LABS: BAND % (MANUAL) 4 % (0.0-5.0); LYMPHOCYTES % (MANUAL) 7 % (16-48); MONOCYTES % (MANUAL) 5 % (0-11.0); NEUTROPHILS % (MANUAL) 82 (42-76)
[2018-01-23 05:51] LABS: METAMYELOCYTES % 1 % (0-0); MYELOCYTES % 1 % (0-0)
--- NOTE | 2018-01-23 07:18 | NUR ---
RN NOTES RECEIVED PT IN BED,AWAKE ALERT X1 ABLE TO FOLLOW SIMPLE COMMANDS . TRACHED, CONNECTED TO VENT SETTINGS ORDERED WITH SPO2 OF 100%. SUCTIONED FOR AIRWAY CLEARANCE. AFIB ON BEDSIDE HR 80 THIS TIME. TENZIN PICC WITH NS @ TKO . REPOSITIONED FOR COMFORT. SAFETY MAINTAINED. ISOLATION PRECAUTION OBSERVED. WILL CONT TO MONITOR
[2018-01-23] MEDS: DOCUSATE SODIUM LIQ 100 MG/10 ML UDC NG SCH ×2 (09:00→18:08)
[2018-01-23] MEDS: TAMSULOSIN 0.4 MG CAP.SR.24H GT SCH (09:16)
[2018-01-23] MEDS: FLUCONAZOLE (100 MG) 100 MG TABLET PO SCH (09:16)
[2018-01-23] MEDS: FAMOTIDINE (20 MG) 20 MG TABLET GT SCH (09:16)
[2018-01-23] MEDS: LINEZOLID RTU BAG 600 MG in PREMIX 1 EA IV SCH ×2 (09:16→22:10)
[2018-01-23] MEDS: LORATADINE 10 MG TABLET PO SCH (09:16)
[2018-01-23] MEDS: BICALUTAMIDE 50 MG TABLET GT SCH (09:16)
[2018-01-23] MEDS: ASCORBIC ACID 500 MG TABLET PO SCH (09:16)
[2018-01-23] MEDS: PROSOURCE / PROSTAT (PYXIS) 30 ML UDC GT SCH ×3 (09:16→18:09)
[2018-01-23] MEDS: PANTOPRAZOLE 40 MG/PACK PACK GT SCH (09:16)
[2018-01-23] MEDS: HYDROCORTISONE SOD SUCCINATE 100 MG/2 ML VIAL IV SCH ×2 (09:16→21:18)
[2018-01-23] MEDS: VIT B CMPLX 3/FA/VIT C/BIOTIN 1 TAB TABLET GT SCH (09:16)
[2018-01-23] MEDS: MINERAL OIL/PETROLATUM,WHITE 120 GM JAR TP PRN (09:17)
[2018-01-23] MEDS: CADEXOMER IODINE 40 GM TUBE TP SCH (09:17)
[2018-01-23] MEDS: TRIAMCINOLONE ACETONIDE 0.1% CR 15 GM TUBE TP SCH ×3 (09:18→18:08)
--- NOTE | 2018-01-23 09:30 | NUR ---
SOLUTION LEAD NOTES SEEN AND EVALUATED BY DR KENT , DISCUSSED LABS , CHEST XRAY RESULT , OFF PRESSORS SINCE 0 YESTERDAY , V/S STABLE AFEBRILE , TOLERATING CURRENT VENT SETTINGS , MD AWARE .
[2018-01-23 10:18] LABS: ABG BASE EXCESS -0.7 mmol/L; ABG PCO2 29.5 mmHg (35.0-45.0); ABG PH 7.493 (7.350-7.450); ABG PO2 142.2 mmHg (75.0-100.0); AaDO2 325.2 mmHg; COHb 0.3 % (0.5-1.5); MetHb 0.5 % (0.0-1.5); O2Hb 97.2 % (94.0-97.0); SITE, ABG Left Radial; VT, ABG 600 mL
--- NOTE | 2018-01-23 10:37 | NUR ---
MACHINE COMPOSITOR NOTES NOTIFIED DR MENDOZA ON ABG RESULT VIA VENT SETTINGS ORDERED , PT SBP OF 110-120'S , PER MD CHANGE VENT SETTINGS TO AC 12 TV 500 FIO2 TITRATE TO KEEP SPO2 ABOVE 93% AND PEEP OF 5 , ORDERS CARRIED OUT , RT REYNA NOTIFIED
--- NOTE | 2018-01-23 12:00 | NUR ---
RT ABG TAKEN VENT CHANGES MADE TITRATED 02 INFORMED RANDA
--- NOTE | 2018-01-23 12:35 | NUR ---
VENT CHANGES BELLOW ORDER: AC 12 VT 500 FIO2 50% PEEP +5 Addendum: 01/23/18 at 1235 by UZIEL SOLANO RT Amended: Links added.
--- NOTE | 2018-01-23 13:13 | NUR ---
BROOM WORKER NOTES TRANSFERRED PT VIA ACLS PROTOCOL , PT STABLE AT THIS TIME , V/S STABLE AFEBRILE , REPORT GIVEN TO SOON FOR CONTINUITY OF CARE . NOTIFIED RN THAT COLACE WAS HELD DUE TO X2 MUCOID GREENISH STOOL , F/U TO RESTART DIET ORDER .
--- NOTE | 2018-01-23 13:20 | NUR ---
Patient received from ICU and appears appropriate for hospice. Is DNR and has dialysis schedule with allergies to vancomycin.
--- NOTE | 2018-01-23 13:24 | NUR ---
Follow up for feeding as patient had vomiting with last tube feeding attempt. Suspect constipation.
--- NOTE | 2018-01-23 14:00 | NUR ---
RT PT TRANSFERRED TO [facility]. VENT PLUGGED IN RED OUTLET AMBU BAG AT HOB ALARMS ON AND AUDIBLE. SX PT MINIMAL PINK TINGLE SECRETIONS WILL CONTINUE TO MONITOR
--- NOTE | 2018-01-23 19:10 | NUR ---
HANDOFF WITH NIGHT NURSE, .
--- NOTE | 2018-01-23 20:12 | NUR ---
TD RN NOTES RECEIVED PT ON BED. OBTUNDED. ON [facility]TING SATURATING 93%. ON TELE MONITOR SR WITH OCCASIONALLY PAC. ON GTUBE FEEDING 20CC/HR NO RESIDUAL NOTED AT THIS TIME. HEAD OF BED ELEVATED. SIDE RAILS UP. CALL LIGHT WITHIN REACH. WILL CONTINUE TO MONITOR PT CLOSELY.
[2018-01-23] MEDS: COLISTIMETHATE SODIUM 100 MG in IV NS 0.9% 50 ML IV SCH (21:17)
[2018-01-23] MEDS: ATORVASTATIN 40 MG TABLET GT SCH (22:10)
--- NOTE | 2018-01-23 22:28 | NUR ---
Received the patient on AC12,500,50%,+5 as per MD order. Breath sounds equal bilateral. Suctioned copious amount thick yellow/ bloody secretions. Ambu bag at the bed side. Mechanical vent plugged into red outlet and alarms set and audible. Patient's SpO2 93% on 50% oxygen. Will continue to monitor pt closely.
[2018-01-24] VITALS (29 sets, daily range): BP systolic 69–112; BP diastolic 40–57
[2018-01-24] MEDS: SEVELAMER CARBONATE 0.8 GM POWD.PACK GT SCH ×3 (04:29→21:06)
[2018-01-24] MEDS: MIDODRINE HCL (5MG) 5 MG TABLET GT SCH ×3 (04:30→21:00)
[2018-01-24] MEDS: BLOOD SUGAR DIAGNOSTIC 1 EACH STRIP IN SCH ×3 (05:54→17:44)
--- NOTE | 2018-01-24 07:38 | NUR ---
TD CLOSING NOTES NO ACUTE CHANGES NOTED DURING THE SHIFT. PT SATURATING WELL BLOOD PRESSURE STABLE THROUGHOUT THE SHIFT. PROVIDED COMFORT AND SAFETY. HEAD OF BED ELEVATED. CALL LIGHT WITHIN REACH. BED ALARM ON. WILL ENDOSE TO THE AM NURSE FOR SYDNEE.
--- NOTE | 2018-01-24 07:54 | NUR ---
lennox rn note patient in bed with trach to vent setting as ordered , Ambu bag at hob , bed in lowest and locked position, on tele Monitor , wit g tube feeding as ordered keep hob elevate at all timelua picc line in place
[2018-01-24 08:01] LABS: ABG BASE EXCESS -5.1 mmol/L; ABG OXYGEN SATURATION 89.4 % (92.0-98.5); ABG PCO2 60.6 mmHg (35.0-45.0); ABG PO2 69.1 mmHg (75.0-100.0); AaDO2 219.2 mmHg; COHb 0.3 % (0.5-1.5); MetHb 0.7 % (0.0-1.5); O2Hb 88.5 % (94.0-97.0); SITE, ABG Right Radial
--- NOTE | 2018-01-24 08:13 | NUR ---
lennox rn note per rt hailee co2 [address] nunez aware ac 18 tv 600
[2018-01-24] MEDS: LINEZOLID RTU BAG 600 MG in PREMIX 1 EA IV SCH (08:36)
[2018-01-24] MEDS: HYDROCORTISONE SOD SUCCINATE 100 MG/2 ML VIAL IV SCH ×2 (08:36→21:06)
[2018-01-24] MEDS: FAMOTIDINE (20 MG) 20 MG TABLET GT SCH (08:36)
[2018-01-24] MEDS: VIT B CMPLX 3/FA/VIT C/BIOTIN 1 TAB TABLET GT SCH (08:36)
[2018-01-24] MEDS: BICALUTAMIDE 50 MG TABLET GT SCH (08:36)
[2018-01-24] MEDS: DOCUSATE SODIUM LIQ 100 MG/10 ML UDC NG SCH ×2 (08:37→16:11)
[2018-01-24] MEDS: LORATADINE 10 MG TABLET PO SCH (08:37)
[2018-01-24] MEDS: FLUCONAZOLE (100 MG) 100 MG TABLET PO SCH (08:37)
[2018-01-24] MEDS: TAMSULOSIN 0.4 MG CAP.SR.24H GT SCH (08:37)
[2018-01-24] MEDS: ASCORBIC ACID 500 MG TABLET PO SCH (08:37)
[2018-01-24] MEDS: PANTOPRAZOLE 40 MG/PACK PACK GT SCH (08:37)
[2018-01-24] MEDS: MINERAL OIL/PETROLATUM,WHITE 120 GM JAR TP PRN ×2 (08:38→09:18)
--- NOTE | 2018-01-24 08:40 | NUR ---
RT PER DR MENDOZA POST ABG RESULTS VENT CHANGES MADE AC18, VT600. RN NOTIFIED
--- NOTE | 2018-01-24 09:00 | NUR ---
KISHOR RN NOTE HD STARTED ORDERED
[2018-01-24] MEDS: CADEXOMER IODINE 40 GM TUBE TP SCH (09:17)
[2018-01-24] MEDS: TRIAMCINOLONE ACETONIDE 0.1% CR 15 GM TUBE TP SCH ×3 (09:19→16:10)
[2018-01-24] MEDS: PROSOURCE / PROSTAT (PYXIS) 30 ML UDC GT SCH ×3 (09:19→16:10)
[2018-01-24] MEDS: ALBUMIN 25% 25 GM in PREMIX 1 EA IV PRN (09:22)
--- NOTE | 2018-01-24 09:56 | NUR ---
lennox rn note per hd nurse bp 85/[address] gallegos notifyed
--- NOTE | 2018-01-24 10:18 | NUR ---
KISHOR RN NOTE ER HD NURSE HD STOPPED, BP 76/38 WILL F\U DR BANDA AWARE NO NEW ORDER AT THIS TIME Addendum: 01/24/18 at 1736 by JONATAN GUAN RN NO FLUIDS IS REMOVED
[2018-01-24] MEDS ORDERED: IV NS 0.9% 250 ML IV ONE (11:00)
--- NOTE | 2018-01-24 11:00 | NUR ---
KISHOR RN NOTE DR MENDOZA AWARE THAT ABG RESULT IN AM CO2 60.6 PH 7.2
[2018-01-24 11:03] LABS: ABG BASE EXCESS -2.5 mmol/L; ABG PCO2 43.4 mmHg (35.0-45.0); ABG PH 7.343 (7.350-7.450); ABG PO2 63.3 mmHg (75.0-100.0); AaDO2 244.4 mmHg; COHb 0.5 % (0.5-1.5); MetHb 0.5 % (0.0-1.5); O2Hb 89.1 % (94.0-97.0); PEEP,BG 5 cm H2O; SITE, ABG Right Radial; VENT MODE, BG A/C 18; VT, ABG 600 mL
--- NOTE | 2018-01-24 11:10 | NUR ---
RT PER DR KELLY YA DC'D
--- NOTE | 2018-01-24 11:24 | NUR ---
KISHOR RN NOTE PER DR MENDOZA OK TO GIVE 250 NS BOLUS, DR MENDOZA AWARE THAT BP 76/38 AND ALBUMIN DURING HD WAS INFUSED BY HD NURSE ABG RESULT REPORTED TO BY DR MENDOZA ,STATED OK FOR NOW ,RECHECK BP AFTER BOLUS . WILL F\U Addendum: 01/24/18 at 1130 by JONATAN GUAN RN YELENA WITT AWARE THAT 250 ML NS NOT AVAILABLE , USING 500 NS BOLUS UNABLE TO SCAN STATED ITS OK USE AT THIS TIME
--- NOTE | 2018-01-24 12:12 | NUR ---
KISHOR JEAN-BAPTISTE NOTE SPOKE WIT DR MENDOZA NOTIFIED THAT BP ON ARM 73/42 AND ON LEG 85/37 , ORDERED BOLUS 500 ML BOLUS NS, ORDER CARRIED OUT Addendum: 01/24/18 at 1246 by JONATAN GUAN RN KISHOR JEAN-BAPTISTE NOTE BOLUS 500 ML NS DOING NOW ORDERED WILL F\U WITH BP
[2018-01-24] MEDS ORDERED: IV NS 0.9% 500 ML IV ONE (12:30)
[2018-01-24] MEDS: INSULIN REGULAR, HUMAN 100 UNIT/ML 3 ML VIAL SQ PRN (12:31)
--- NOTE | 2018-01-24 12:55 | NUR ---
KISHOR RN NOTE SEEN BY DR BANDA ELECTRONIC WARFARE TECHNICAL ,NOTIFIED THAT HG 7.5 EPOGEN WAS GIVEN WITH HD ORDERED WILL F\U
--- NOTE | 2018-01-24 14:15 | NUR ---
KISHOR RN NOTE CALLED TO DR BANDA, LEFT A MESSAGE ABOUT BP 73/37
[2018-01-24] MEDS ORDERED: EPOETIN ALFA (10,000 UNIT) 10,000 UNIT/ML VIAL IV ONE (15:00)
--- NOTE | 2018-01-24 15:00 | NUR ---
KISHOR JEAN-BAPTISTE NOTE DR BANDA NO RETURN CALL , CALLED TO DR KENT, LEFT A MASSAGE ABOUT BP 73/37 ,WILL F\U Addendum: 01/24/18 at 1547 by JONATAN GUAN RN 1500 LEFT A MESSAGE TO DR KENT ABOUT BOLUS 500 NS AND 250 NS WAS GIVEN EARLIER AND MIDODRINE WAS GIVEN VIA G TUBE AT 1300 NO NEW ORDER AT THIS TIME
--- NOTE | 2018-01-24 17:08 | NUR ---
KISHOR RN NOTE CALLED AGAIN TO DR BANDA NOTIFIED THAT BP 75/72 , OK TO ORDER TO TRANSFER TO ICU Addendum: 01/24/18 at 1734 by JONATAN GUAN RN DR KENT NOTIFIED BY CHARGE NURSE TO TRANSFER TO ICU ,
--- NOTE | 2018-01-24 17:30 | NUR ---
KISHOR RN NOTE BP RECHECKED STILL LOW / WILL INFORM DR BANDA AND DR KENT
--- NOTE | 2018-01-24 17:36 | NUR ---
KISHOR JEAN-BAPTISTE NOTE TRANSFERRED PATIENT TO ICU BY BED BY ONELS PROTOCOL , RT AT BEDSIDE , REPORT GIVE AT BEDSIDE TO MARY JEAN-BAPTISTE Addendum: 01/24/18 at 1737 by JONATAN GUAN RN BLOOD SUGAR CHECKED 134 MG\DL
[2018-01-24] MEDS: NOREPINEPHRINE 16 MG in IV D5W 500 ML IV PRN (17:44)
--- NOTE | 2018-01-24 17:45 | NUR ---
BALANCE STAFF STAKER RECEIVED PATIENT FROM KISHOR LEVEL OF CARE. PATIENT IS HYPOTENSIVE. ALERT AND ABLE TO FOLLOW SIMPLE COMMANDS. VENT SETTINGS REVIEWED AND VERIFIED. SUCTIONED TRACH FOR CLEARANCE. PRESSORS INITIATED POST BOLUSES FOR BP SUPPORT PER MD ORDER. WILL CONTINUE TO MONITOR AND PROVIDE CARE.
--- NOTE | 2018-01-24 19:30 | NUR ---
MASTER PLUMBER INITIAL NOTES RECEIVED PATIENT OPENS EYES TO TOUCH AND SPONTANEOUSLY, NON-VERBAL, VENT DEPENDENT. NO S/S OF PAIN OR DISCOMFORT. RESPIRATIONS EVEN AND UNLABORED, WITH VENT SETTINGS AC 18, TV 600, FIO2 50%, PEEP 0, SPO2 100%. ON TELE MONITOR SR. TRACH C/D/I. SKIN WARM AND DRY TO TOUCH. WITH GT PATENT, INTACT, IN PLACE. WITH RCW HD CATH IN PLACE. WITH TENZIN PICC LINE PATENT AND INTACT, TKO AND WITH LEVO AT 5MCG/MIN RUNNING. HOB ELEVATED. SIDE RAILS UP AND LOCKED. BED KEPT AT LOWEST POSITION. WILL CONTINUE TO MONITOR.
--- NOTE | 2018-01-24 20:30 | NUR ---
MATERIALS ENGINEERING TECHNICIAN NOTE DAUGHTER MIREILLE CALLED, PROVIDED HER WITH UPDATES ON HER FATHER.
[2018-01-24] MEDS: COLISTIMETHATE SODIUM 100 MG in IV NS 0.9% 50 ML IV SCH (20:34)
[2018-01-24] MEDS: ATORVASTATIN 40 MG TABLET GT SCH (21:06)
[2018-01-24] MEDS: LINEZOLID 600 MG TABLET GT SCH (21:06)
--- NOTE | 2018-01-24 21:07 | NUR ---
RN CARDIAC CATH NOTE NON-ADMIN MIDODRINE, PATIENT ON LEVOPHED DRIP.
[2018-01-25] VITALS (92 sets, daily range): BP systolic 68–110; BP diastolic 42–67
[2018-01-25] MEDS: MIDODRINE HCL (5MG) 5 MG TABLET GT SCH ×3 (05:00→21:08)
[2018-01-25] MEDS: SEVELAMER CARBONATE 0.8 GM POWD.PACK GT SCH ×3 (05:37→21:08)
[2018-01-25] MEDS: BLOOD SUGAR DIAGNOSTIC 1 EACH STRIP IN SCH ×5 (05:37→23:59)
[2018-01-25] MEDS: INSULIN REGULAR, HUMAN 100 UNIT/ML 3 ML VIAL SQ PRN ×2 (05:39→18:51)
--- NOTE | 2018-01-25 06:12 | NUR ---
Patient received on mechanical ventilation with settings of AC 16, 600 Vt, 50%, +0. Suctioned with lavage for minimal amount of secretions. No distress noted, tolerating current settings, and will continue to monitor progress. Ambu bag present at bedside. Ventilator plugged in red outlet and alarms audible. Addendum: 01/25/18 at 0613 by HALEY QUINTANA RT Amended: Links added.
--- NOTE | 2018-01-25 07:25 | NUR ---
RT PATIENT REC'D TRACHED ON [facility] VENT WITH SETTINGS SET BY MD ELAINE GARCÍA. VENT ALARMS CHECKED + AUDIBLE. CUFF PRESSURE CHECKED PERL SOFTWARE ENGINEER. SX'D WITH SMALL AMT OF PALE SEMITHICK SECRETIONS. B/S DIM COARSE. AMBU BAG AT [facility]. Addendum: 01/25/18 at 0725 by ROMEO NARAYAN RT Amended: Links added.
--- NOTE | 2018-01-25 07:33 | NUR ---
SUPERVISOR TREATING AND PUMPING CLOSING NOTES NO SIGNIFICANT CHANGES OVERNIGHT. TOLERATING VENT SETTINGS. NO RESPIRATORY DISTRESS NOTED. ON LEVO AT 7MCG/MIN. KEPT CLEAN AND DRY. TURNED AND REPOSITIONED Q2 AND PRN. WOUND TX PROVIDED. HOB ELEVATED. SIDE RAILS UP AND LOCKED. BED KEPT AT LOWEST POSITION. CONTINUITY OF CARE ENDORSED TO AM NURSE.
--- NOTE | 2018-01-25 08:00 | NUR ---
ICU/RN PT IS CHRONIC TRACH ON THE VENT .AC MODE.FIO2-50%.ON LEVOPHED DRIP.AFEBRILE.NO PAIN REPORTED AT THIS TIME.ANURIC ON HD.MULTIPLY WOUNDS AND SKIN TEARS NOTED ALL OVER THE BODY.SUCTION PROVIDED.PT HAS BLOODY SECRETION .
[2018-01-25 08:11] LABS: ABG BASE EXCESS -1.9 mmol/L; ABG OXYGEN SATURATION 94.9 % (92.0-98.5); ABG PCO2 36.6 mmHg (35.0-45.0); ABG PH 7.406 (7.350-7.450); AaDO2 233.3 mmHg; COHb 0.1 % (0.5-1.5); MetHb 0.6 % (0.0-1.5); O2Hb 94.2 % (94.0-97.0); PEEP,BG 0 cm H2O; SITE, ABG Right Radial
[2018-01-25] MEDS: DOCUSATE SODIUM LIQ 100 MG/10 ML UDC NG SCH ×2 (08:21→16:33)
[2018-01-25] MEDS: FAMOTIDINE (20 MG) 20 MG TABLET GT SCH (08:22)
[2018-01-25] MEDS: LORATADINE 10 MG TABLET PO SCH (08:22)
[2018-01-25] MEDS: ASCORBIC ACID 500 MG TABLET PO SCH (08:22)
[2018-01-25] MEDS: PANTOPRAZOLE 40 MG/PACK PACK GT SCH (08:22)
[2018-01-25] MEDS: HYDROCORTISONE SOD SUCCINATE 100 MG/2 ML VIAL IV SCH ×5 (08:22→21:08)
[2018-01-25] MEDS: FLUCONAZOLE (100 MG) 100 MG TABLET PO SCH (08:22)
[2018-01-25] MEDS: TRIAMCINOLONE ACETONIDE 0.1% CR 15 GM TUBE TP SCH ×3 (08:24→16:34)
[2018-01-25] MEDS: Z GUARD REMEDY 2 OZ OINT TP PRN ×2 (08:24→18:52)
[2018-01-25] MEDS: CADEXOMER IODINE 40 GM TUBE TP SCH (08:25)
[2018-01-25 08:33] LABS: BASOPHILS % (AUTO) 0.3 % (0.0-2.0); EOSINOPHILS % (AUTO) 0.1 % (0.0-6.0); HEMATOCRIT 25 % (39-51); HEMOGLOBIN 8.3 g/dL (13.5-17.5); LYMPHOCYTES # (AUTO) 0.7 /CMM (0.8-4.8); LYMPHOCYTES % (AUTO) 4.8 % (20.0-44.0); MEAN CORPUSCULAR HGB CONC 33 g/dl (31.0-36.0); MEAN CORPUSCULAR VOLUME 90 fL (80-96); MONOCYTES # (AUTO) 0.4 /CMM (0.1-1.30); MONOCYTES % (AUTO) 2.7 % (2.0-12.0); NEUTROPHILS # (AUTO) 13.2 /CMM (1.8-8.9); NEUTROPHILS % (AUTO) 92.1 % (43.0-81.0); PLATELET COUNT (AUTO) 54 /CMM (150-450); RDW COEFFICIENT OF VARIATION 21.5 (11.5-15.0); RED BLOOD CELL COUNT(AUTO) 2.78 MIL/uL (4.5-6.0); WHITE BLOOD COUNT (AUTO) 14.3 K/uL (4.3-11.0)
[2018-01-25] MEDS: PROSOURCE / PROSTAT (PYXIS) 30 ML UDC GT SCH ×3 (08:33→16:32)
[2018-01-25] MEDS: TAMSULOSIN 0.4 MG CAP.SR.24H GT SCH (08:34)
[2018-01-25] MEDS: BICALUTAMIDE 50 MG TABLET GT SCH (08:36)
[2018-01-25] MEDS: VIT B CMPLX 3/FA/VIT C/BIOTIN 1 TAB TABLET GT SCH (08:36)
[2018-01-25] MEDS: LINEZOLID 600 MG TABLET GT SCH ×2 (08:36→21:07)
[2018-01-25 08:49] LABS: CALCIUM, SERUM 8.2 mg/dL (8.5-10.1); CARBON DIOXIDE 23 mmol/L (21-32); CHLORIDE 99 mmol/L (98-107); CREATININE 3.1 mg/dL (0.6-1.3); GLUCOSE 165 mg/dL (74-106); POTASSIUM 3.4 mmol/L (3.5-5.1); SODIUM SERUM 137 mmol/L (136-145)
[2018-01-25 08:50] LABS: UREA NITROGEN, BLOOD 85 mg/dL (7-18)
[2018-01-25 10:36] LABS: BAND % (MANUAL) 2 % (0.0-5.0); LYMPHOCYTES % (MANUAL) 4 % (16-48); MONOCYTES % (MANUAL) 4 % (0-11.0); NEUTROPHILS % (MANUAL) 90 (42-76)
[2018-01-25] MEDS: ALBUMIN 25% 25 GM in PREMIX 1 EA IV PRN (12:03)
--- NOTE | 2018-01-25 14:15 | NUR ---
ICU/RN HD IS OVER.ALBUMIN DURING HD WAS GIVEN ORDERED,LEVOPHED INCREASED . WILL CONTINUE TO MONITOR.
[2018-01-25] MEDS: RENAL NOVASOURCE 1,000 ML BOTTLE GT PRN (16:29)
--- NOTE | 2018-01-25 17:00 | NUR ---
ICU/RN DUE MEDS ARE GIVEN ORDERED.WOUND DRESSING DONE ORDERED.SUCTION PROVIDED.REPOSITION FOR COMFORT.G-TUBE FEEDING RESTARTED.NO RESIDUAL NOTED.
[2018-01-25] MEDS: NOREPINEPHRINE 16 MG in IV D5W 500 ML IV PRN (17:12)
[2018-01-25] MEDS: COLISTIMETHATE SODIUM 100 MG in IV NS 0.9% 50 ML IV SCH (20:21)
[2018-01-25] MEDS: ATORVASTATIN 40 MG TABLET GT SCH (21:07)
[2018-01-26] VITALS (104 sets, daily range): BP systolic 81–129; BP diastolic 46–71
[2018-01-26] MEDS: INSULIN REGULAR, HUMAN 100 UNIT/ML 3 ML VIAL SQ PRN ×4 (00:07→17:37)
--- NOTE | 2018-01-26 04:00 | NUR ---
RN NOTE INCREASED TUBE FEEDING TO 40 ML/HR. PT TOLERATED FEEDING @ 30ML/HR WITH 0 RESIDUAL. WILL CONTINUE TO MONITOR.
[2018-01-26] MEDS: MIDODRINE HCL (5MG) 5 MG TABLET GT SCH ×3 (05:37→21:42)
[2018-01-26] MEDS: SEVELAMER CARBONATE 0.8 GM POWD.PACK GT SCH ×3 (05:37→21:41)
[2018-01-26] MEDS: BLOOD SUGAR DIAGNOSTIC 1 EACH STRIP IN SCH ×3 (05:37→17:47)
--- NOTE | 2018-01-26 06:21 | NUR ---
PATIENT RECEIVED ORALLY INTUBATED ON [facility] VENT WITH SETTINGS SET BY TOLERATED WELL. MECHANICAL VENTILATOR PLUGGED INTO RED OUTLET. VENT ALARMS CHECKED AND ARE AUDIBLE THROUGHOUT UNIT. CUFF PRESSURE CHECKED MEDIA COORDINATOR. SUCTIONED FOR MODERATE AMOUNT OF SECRETIONS. B/S AUDIBLE BILATERALLY. AMBU BAG AT HOB. Addendum: 01/26/18 at 0621 by MARILOU ARAUZ RT Amended: Links added.
--- NOTE | 2018-01-26 06:22 | NUR ---
RN NOTE PT REMAINS IN NO ACUTE DISTRESS IN BED. PT DID NOT HAVE ANY SIGNIFICANT CHANGE IN CONDITION DURING SHIFT. PT REMAINS ON LEVOPHED @ 12MCG AND TOLERATING WELL. PT IS ON NEPHRO TUBE FEEDING @ 40ML/HR AND TOLERATING WELL WITH 0 RESIDUAL. ALL NEEDS MET, ALL ORDERS CARRIED OUT.
--- NOTE | 2018-01-26 07:05 | NUR ---
RN INITIAL NOTES RECEIVED PT A/OX1. TRACH IN PLACE, ON VENT. NO RESPIRATORY DISTRESS NOTED. NO SOB NOTED. NO SIGNS OF PAIN NOTED. PICC LINE IN PLACE. ON LEVO AT 12MCG/MIN. WILL CLOSELY MONITOR. BP. LCW PERMACATH IN PLACE. DRESSING IN AND DRY. GT IN PLACE. TOLERATING GTF WELL. CLEAN AND DRY. REPOSITIONED. BLE ELEVATED. WILL CONTINUE TO MONITOR.
[2018-01-26 08:02] LABS: ABG BASE EXCESS -1.3 mmol/L; ABG OXYGEN SATURATION 85.1 % (92.0-98.5); ABG PCO2 42.6 mmHg (35.0-45.0); ABG PH 7.368 (7.350-7.450); ABG PO2 53.8 mmHg (75.0-100.0); AaDO2 182.4 mmHg; COHb 0.5 % (0.5-1.5); MetHb 0.6 % (0.0-1.5); O2Hb 84.2 % (94.0-97.0); PEEP,BG 0 cm H2O; SITE, ABG Right Radial; VT, ABG 600 mL
[2018-01-26 08:27] LABS: BASOPHILS % (AUTO) 0.1 % (0.0-2.0); EOSINOPHILS % (AUTO) 0.1 % (0.0-6.0); HEMATOCRIT 25 % (39-51); HEMOGLOBIN 8.2 g/dL (13.5-17.5); LYMPHOCYTES # (AUTO) 0.6 /CMM (0.8-4.8); MEAN CORPUSCULAR HGB CONC 32 g/dl (31.0-36.0); MEAN CORPUSCULAR VOLUME 92 fL (80-96); MONOCYTES # (AUTO) 0.1 /CMM (0.1-1.30); MONOCYTES % (AUTO) 0.7 % (2.0-12.0); NEUTROPHILS # (AUTO) 14.6 /CMM (1.8-8.9); NEUTROPHILS % (AUTO) 95.1 % (43.0-81.0); RDW COEFFICIENT OF VARIATION 21.6 (11.5-15.0); RED BLOOD CELL COUNT(AUTO) 2.74 MIL/uL (4.5-6.0); WHITE BLOOD COUNT (AUTO) 15.3 K/uL (4.3-11.0)
--- NOTE | 2018-01-26 08:30 | NUR ---
RN NOTES CRITICAL RESULT, PLATELET 38 CALLED TO KAI GUPTA DNP. PAGED. AWAITING CALL BACK. PT HAS NO SIGNS OF ACTIVE BLEEDING NOTED. NO RESPIRATORY DISTRESS NOTED. WILL MONITOR.
[2018-01-26 08:31] LABS: PLATELET COUNT (AUTO) 38 /CMM (150-450)
[2018-01-26 08:35] LABS: CALCIUM, SERUM 8.2 mg/dL (8.5-10.1); CARBON DIOXIDE 25 mmol/L (21-32); CHLORIDE 101 mmol/L (98-107); CREATININE 2.7 mg/dL (0.6-1.3); GLUCOSE 169 mg/dL (74-106); POTASSIUM 3.6 mmol/L (3.5-5.1); SODIUM SERUM 139 mmol/L (136-145); UREA NITROGEN, BLOOD 75 mg/dL (7-18)
[2018-01-26] MEDS: DOCUSATE SODIUM LIQ 100 MG/10 ML UDC NG SCH ×2 (08:41→17:29)
[2018-01-26] MEDS: FAMOTIDINE (20 MG) 20 MG TABLET GT SCH (08:41)
[2018-01-26] MEDS: TAMSULOSIN 0.4 MG CAP.SR.24H GT SCH (08:41)
[2018-01-26] MEDS: ASCORBIC ACID 500 MG TABLET PO SCH (08:41)
[2018-01-26] MEDS: FLUCONAZOLE (100 MG) 100 MG TABLET PO SCH (08:41)
[2018-01-26] MEDS: BICALUTAMIDE 50 MG TABLET GT SCH (08:41)
[2018-01-26] MEDS: VIT B CMPLX 3/FA/VIT C/BIOTIN 1 TAB TABLET GT SCH (08:42)
[2018-01-26] MEDS: PANTOPRAZOLE 40 MG/PACK PACK GT SCH (08:42)
[2018-01-26] MEDS: HYDROCORTISONE SOD SUCCINATE 100 MG/2 ML VIAL IV SCH ×3 (08:42→12:24)
[2018-01-26] MEDS: LINEZOLID 600 MG TABLET GT SCH (08:42)
[2018-01-26] MEDS: LORATADINE 10 MG TABLET PO SCH (08:42)
[2018-01-26] MEDS: TRIAMCINOLONE ACETONIDE 0.1% CR 15 GM TUBE TP SCH ×3 (08:43→17:30)
[2018-01-26] MEDS: PROSOURCE / PROSTAT (PYXIS) 30 ML UDC GT SCH ×3 (08:50→17:29)
--- NOTE | 2018-01-26 09:00 | NUR ---
RN NOTES SOLUCORTEF 100MG NOT GIVEN AT 0900. DUPLICATE ORDER.
--- NOTE | 2018-01-26 09:15 | NUR ---
RN NOTES SEEN AND EXAMINED BY DR. MENDOZA. AWARE OF CURRENT LAB VALUES AND CXR RESULT. AWARE OF ABG RESULT, FI02 50%. NO RESPIRATORY DISTRESS NOTED. NO SOB NOTED. NO SIGNS OF PAIN NOTED. WILL CONTINUE TO MONITOR.
[2018-01-26 10:31] LABS: BAND % (MANUAL) 1 % (0.0-5.0); LYMPHOCYTES % (MANUAL) 3 % (16-48); MONOCYTES % (MANUAL) 1 % (0-11.0); NEUTROPHILS % (MANUAL) 95 (42-76)
--- NOTE | 2018-01-26 11:30 | NUR ---
RN NOTES SEEN AND EXAMINED BY KAI GUPTA DNP. PT A/OX1. TRACH IN PLACE. ON VANT. NO RESPIRATORY DISTRESS NOTED. NO SOB NOTED. NO SIGNS OF PAIN NOTED. TOLERATING GTF WELL. ON LEVO, WILL TITRATE ACCORDINGLY. LAST HD YESTERDAY, 1.5L OUT. AWARE OF LATEST LAB VALUES: WBC 15.3, HGB 8.3, HCT 25, PLATELET 38 FROM 54. NO SIGNS OF BLEEDING NOTED. BUN 75, CREA 2.7. ALSO AWARE OF CXR RESULT. DISCUSSED PLAN OF CARE WITH TABITHA (DAUGHTER). WILL CONTINUE TO MONITOR. Addendum: 01/26/18 at 1751 by REUBEN RODRIGUEZ RN 1200 MINIMAL BLEEDING NOTED ON TRACH SECRETION, BLOOD TINGED, SCANTY IN AMOUNT.
[2018-01-26] MEDS: CADEXOMER IODINE 40 GM TUBE TP SCH (11:43)
[2018-01-26] MEDS: RENAL NOVASOURCE 1,000 ML BOTTLE GT PRN (14:16)
[2018-01-26] MEDS: NOREPINEPHRINE 16 MG in IV D5W 500 ML IV PRN (14:16)
--- NOTE | 2018-01-26 18:35 | NUR ---
RT END OF THE SHIFT REPORT, PT. 82 Y OLD MALE REMAIN TRACHED SHILEY # 8 AND SECURED. AWAKE AND ALERT AND RESPONSIVE. ON THE VENT WITH NOTED SETTINGS. PT. REMAIN STABLE. POST ABG CHANGES PER DR. MENDOZA AT THE BEDSIDE. INCREASED FIO2 VENT ALARMS ARE SET AND AUDIBLE WITH AMBU BAG AT THE BEDSIDE. CHARGE MASTER SPECIALIST CUFF PRESSURE NOTED. VENT IS PLUGGED INTO RED OUTLET. HME CHANGED. B/S BILATERALLY RHONCHI EQUAL CHEST RISE NOTED. SX MODERATE/ LARGE AMT OF THICK REDDISH SECRETIONS. NO RESPIRATORY DISTRESS NOTED T/O SHIFT, WILL CONTINUE TO MONITOR. REPORT WILL PASS TO PM SHIFT. Addendum: 01/26/18 at 1839 by ERWIN CHARLTON RT Amended: Links added.
--- NOTE | 2018-01-26 18:37 | NUR ---
RN CLOSING NOTES NO SIGNIFICANT CHANGE NOTED. PT AIRWAY PATENT. TRACH IN PLACE. TOLERATING VENT WELL. NO RESPIRATORY DISTRESS NOTED. NO SOB NOTED. NO SIGNS OF PAIN NOTED. PT REMAINS ON LEVO, MAP KEPT >65. TOLERATING GTF WELL. TX PROVIDED ORDERED. KEPT CLEAN AND DRY. REPOSITIONED Q2. BLE ELEVATED. WILL ENDORSE FOR CONTINUITY OF CARE.
[2018-01-26] MEDS: COLISTIMETHATE SODIUM 100 MG in IV NS 0.9% 50 ML IV SCH (20:30)
--- NOTE | 2018-01-26 20:38 | NUR ---
PT RECEIVED TRACHED SHLY 8. PT IS AWAKE NO RESP DISTRESS NOTED. TOLERATING VENT SETTINGS. SX'D FOR MOD AMT OF THINGED SECRETIONS. VENT ALARMS SET AND AUDIBLE. VENT PLUGGED INTO RED OUTLET. WILL CONTINUE TO MONITOR. Addendum: 01/26/18 at 2042 by COLTEN EUGENE RT Amended: Links added.
[2018-01-26] MEDS: ATORVASTATIN 40 MG TABLET GT SCH (21:41)
[2018-01-26] MEDS: DOXYCYCLINE 100 MG in IV D5W 100 ML IV SCH (21:45)
[2018-01-27] VITALS (106 sets, daily range): BP systolic 81–120; BP diastolic 29–80
[2018-01-27] MEDS: BLOOD SUGAR DIAGNOSTIC 1 EACH STRIP IN SCH ×5 (00:31→23:52)
[2018-01-27] MEDS: INSULIN REGULAR, HUMAN 100 UNIT/ML 3 ML VIAL SQ PRN ×4 (00:32→23:55)
[2018-01-27] MEDS: SEVELAMER CARBONATE 0.8 GM POWD.PACK GT SCH ×3 (05:44→21:09)
[2018-01-27] MEDS: MIDODRINE HCL (5MG) 5 MG TABLET GT SCH ×3 (05:45→21:10)
--- NOTE | 2018-01-27 07:05 | NUR ---
RN INITIAL NOTES RECEIVED PT A/OX1. TRACH IN PLACE, ON VENT. NO RESPIRATORY DISTRESS NOTED. NO SOB NOTED. NO SIGNS OF PAIN NOTED. PICC LINE IN PLACE. ON LEVO AT 5MCG/MIN. WILL CLOSELY MONITOR BP. LCW PERMACATH IN PLACE. DRESSING IN AND DRY. GT IN PLACE. TOLERATING GTF WELL. CLEAN AND DRY. REPOSITIONED. BLE ELEVATED. WILL CONTINUE TO MONITOR.
--- NOTE | 2018-01-27 07:41 | NUR ---
PT RECEIVED ON [facility] VENT VIA TRACH SIZE 8 SHILEY WITH VENT SETTINGS BELLOW ORDER: AC 18 VT 600 FIO2 50% NO PEEP B/S COARSE RHONCHI BILATERAL, SXN MOD AMNT OLD BLOOD WITH PALE YELLOW SECRETIONS. VENT PLUGGED INTO RED OUTLET WITH ALARMS ON AND FUNCTIONING. DONIS @ BEDSIDE. Addendum: 01/27/18 at 1355 by UZIEL SOLANO RT Amended: Links added.
[2018-01-27 08:23] LABS: BASOPHILS # (AUTO) 0.1 /CMM (0.0-0.2); BASOPHILS % (AUTO) 0.5 % (0.0-2.0); EOSINOPHILS % (AUTO) 0.5 % (0.0-6.0); HEMATOCRIT 24 % (39-51); HEMOGLOBIN 7.7 g/dL (13.5-17.5); LYMPHOCYTES # (AUTO) 0.6 /CMM (0.8-4.8); MEAN CORPUSCULAR HGB CONC 32 g/dl (31.0-36.0); MEAN CORPUSCULAR VOLUME 93 fL (80-96); MONOCYTES # (AUTO) 0.2 /CMM (0.1-1.30); MONOCYTES % (AUTO) 1.3 % (2.0-12.0); NEUTROPHILS # (AUTO) 18.2 /CMM (1.8-8.9); NEUTROPHILS % (AUTO) 94.7 % (43.0-81.0); RDW COEFFICIENT OF VARIATION 21.7 (11.5-15.0); RED BLOOD CELL COUNT(AUTO) 2.57 MIL/uL (4.5-6.0); WHITE BLOOD COUNT (AUTO) 19.2 K/uL (4.3-11.0)
[2018-01-27] MEDS: DOXYCYCLINE 100 MG in IV D5W 100 ML IV SCH ×2 (08:23→21:07)
[2018-01-27] MEDS: BICALUTAMIDE 50 MG TABLET GT SCH (08:24)
[2018-01-27] MEDS: PANTOPRAZOLE 40 MG/PACK PACK GT SCH (08:24)
[2018-01-27] MEDS: DOCUSATE SODIUM LIQ 100 MG/10 ML UDC NG SCH ×2 (08:24→16:41)
[2018-01-27] MEDS: ASCORBIC ACID 500 MG TABLET PO SCH (08:24)
[2018-01-27] MEDS: FLUCONAZOLE (100 MG) 100 MG TABLET PO SCH (08:24)
[2018-01-27] MEDS: FAMOTIDINE (20 MG) 20 MG TABLET GT SCH (08:24)
[2018-01-27] MEDS: TRIAMCINOLONE ACETONIDE 0.1% CR 15 GM TUBE TP SCH ×3 (08:25→16:41)
[2018-01-27] MEDS: TAMSULOSIN 0.4 MG CAP.SR.24H GT SCH (08:25)
[2018-01-27] MEDS: LORATADINE 10 MG TABLET PO SCH (08:25)
[2018-01-27] MEDS: CADEXOMER IODINE 40 GM TUBE TP SCH (08:25)
[2018-01-27] MEDS: VIT B CMPLX 3/FA/VIT C/BIOTIN 1 TAB TABLET GT SCH (08:25)
[2018-01-27 08:38] LABS: CARBON DIOXIDE 26 mmol/L (21-32); CHLORIDE 101 mmol/L (98-107); CREATININE 3.2 mg/dL (0.6-1.3); GLUCOSE 139 mg/dL (74-106); SODIUM SERUM 138 mmol/L (136-145)
[2018-01-27 08:39] LABS: UREA NITROGEN, BLOOD 101 mg/dL (7-18)
[2018-01-27 08:47] LABS: PLATELET COUNT (AUTO) 28 /CMM (150-450)
[2018-01-27] MEDS ORDERED: HYDROCORTISONE SOD SUCCINATE 100 MG/2 ML VIAL IV SCH (09:00)
--- NOTE | 2018-01-27 09:00 | NUR ---
RN NOTES HD STARTED. PT A/OX1. NO RESPIRATORY DISTRESS NOTED. NO SOB NOTED. NO SIGNS OF PAIN NOTED. PT ON LEVO, WILL TITRATE ACCORDINGLY.
--- NOTE | 2018-01-27 09:15 | NUR ---
RN NOTES SEEN AND EXAMINED BY DR. MENDOZA. PT A/0X1. TOLERATING VENT WELL. NO RESPIRATORY DISTRESS NOTED. AWARE OF CURRENT LAB VALUES AND CXR RESULT. PT STILL ON LEVO. HD ONGOING. WILL MONITOR
--- NOTE | 2018-01-27 09:30 | NUR ---
RN NOTES SEEN AND EXAMINED BY DR. COOLEY. AWARE OF CURRENT LAB VALUES: HGB 7.7, HCT 24, PLATELET 28. BLOOD TINGED SECRETION NOTED. NO OTHER SIGNS OF ACTIVE BLEEDING NOTED. BUN 101, CREA 3.2. HD ONGOING. WILL CLOSELY MONITOR.
[2018-01-27] MEDS: PROSOURCE / PROSTAT (PYXIS) 30 ML UDC GT SCH ×3 (09:33→16:41)
[2018-01-27 10:26] LABS: BAND % (MANUAL) 3 % (0.0-5.0); LYMPHOCYTES % (MANUAL) 6 % (16-48); MONOCYTES % (MANUAL) 4 % (0-11.0); MYELOCYTES % 1 % (0-0); NEUTROPHILS % (MANUAL) 86 (42-76)
--- NOTE | 2018-01-27 11:00 | NUR ---
RN NOTES HD DONE. REMOVED 1L. TOLERATED WELL. NO RESPIRATORY DISTRESS NOTED. NO SOB NOTED. NO SIGNS OF PAIN NOTED. LEVO TITRATED. WILL CONTINUE TO MONITOR.
[2018-01-27 11:50] LABS: ABG BASE EXCESS -1.3 mmol/L; ABG OXYGEN SATURATION 93.2 % (92.0-98.5); ABG PCO2 45.8 mmHg (35.0-45.0); ABG PH 7.346 (7.350-7.450); ABG PO2 76.4 mmHg (75.0-100.0); AaDO2 228.6 mmHg; COHb 0.3 % (0.5-1.5); MetHb 0.5 % (0.0-1.5); O2Hb 92.5 % (94.0-97.0); PEEP,BG 0 cm H2O; SITE, ABG Right Brachial; VT, ABG 600 mL
[2018-01-27] MEDS: RENAL NOVASOURCE 1,000 ML BOTTLE GT PRN (12:09)
[2018-01-27] MEDS: NOREPINEPHRINE 16 MG in IV D5W 500 ML IV PRN (12:32)
--- NOTE | 2018-01-27 14:15 | NUR ---
RN NOTES SEEN AND EXAMINED BY KAI GUPTA NP. AWARE OF LAB VALUES: WBC 19.2, HGB 7.7, HCT 24, PLATELET 28. BLOOD TINGED SECRETIONS NOTED. NO ANY OTHER SIGNS OF ACTIVE BLEEDING NOTED. SODIUM 138, POTASSIUM 3, BUN 101, CREA 3.2. PT HAD HD, 1L OUT. ALSO AWARE OF LATEST CXR RESULT. PT TOLERATING VENT WELL. REMAINS ON LEVO. WILL MONITOR.
[2018-01-27] MEDS: HYDROCODONE/APAP 5/325MG 1 EACH TABLET PO PRN (16:41)
--- NOTE | 2018-01-27 18:42 | NUR ---
RN CLOSING NOTES NO SIGNIFICANT CHANGE NOTED. PT AIRWAY PATENT. TRACH IN PLACE. TOLERATING VENT WELL. NO RESPIRATORY DISTRESS NOTED. NO SOB NOTED. NO SIGNS OF PAIN NOTED. PT REMAINS ON LEVO AT 16MCG/MIN, MAP KEPT >65. TOLERATING GTF WELL. TX PROVIDED ORDERED. KEPT CLEAN AND DRY. REPOSITIONED Q2. BLE ELEVATED. WILL ENDORSE FOR CONTINUITY OF CARE.
--- NOTE | 2018-01-27 19:30 | NUR ---
COFFEE SHOP MANAGER: RECEIVED CHRONIC VENT TO TRACH PT, ALERT AND AWAKE. ABLE TO MOUTH WORDS AND FOLLOW SIMPLES COMMANDS. VENT SETTINGS ORDERED AND TOLERATING WELL. MIN. BLOOD TINGED SECRETIONS NOTED WHEN SUCTIONED. NO ACUTE DISTRESS, NO C/O PAIN OR EVIDENCE OF DISCOMFORT. AFEBRILE. ST WT BBB ON WINDER OPERATOR WT HR LESS THAN 110. GTF IN PLACE RUNNING NOVASOURCE AT 60ML/HR WT NO RESIDUAL. TENZIN PICC INFUSING LEVOPHED AT 16MCG FOR BP SUPPORT WT NO S/S OF COMPLICATIONS. LEFT CW PERMA CATH DRESSING CLEAN AND INTACT. HOB AT 45 DEGREES. SAFETY AND ASPIRATION PRECAUTION NOTED. WILL CONTINUE TO MONITOR.
--- NOTE | 2018-01-27 19:51 | NUR ---
PATIENT RECEIVED ON [facility] VENT WITH SETTINGS SET BY TOLERATED WELL. MECHANICAL VENTILATOR PLUGGED INTO RED OUTLET. VENT ALARMS CHECKED AND ARE AUDIBLE THROUGHOUT UNIT. CUFF PRESSURE CHECKED RING STAMPER. SUCTIONED FOR MODERATE AMOUNT OF SECRETIONS. B/S AUDIBLE BILATERALLY. AMBU BAG AT HOB. Addendum: 01/27/18 at 1950 by FLYNN ANDERSON RT Amended: Links added.
[2018-01-27] MEDS: COLISTIMETHATE SODIUM 100 MG in IV NS 0.9% 50 ML IV SCH (20:14)
[2018-01-27] MEDS: ATORVASTATIN 40 MG TABLET GT SCH (21:10)
[2018-01-28] VITALS (107 sets, daily range): BP systolic 62–110; BP diastolic 30–73
[2018-01-28] MEDS ORDERED: NOREPINEPHRINE 4 MG/4 ML AMPUL IV ONE (02:56)
[2018-01-28 04:17] LABS: BASOPHILS % (AUTO) 0.2 % (0.0-2.0); EOSINOPHILS % (AUTO) 2.7 % (0.0-6.0); HEMATOCRIT 22 % (39-51); HEMOGLOBIN 7.3 g/dL (13.5-17.5); MEAN CORPUSCULAR HGB CONC 33 g/dl (31.0-36.0); MEAN CORPUSCULAR VOLUME 92 fL (80-96); MONOCYTES # (AUTO) 1.1 /CMM (0.1-1.30); MONOCYTES % (AUTO) 4.5 % (2.0-12.0); NEUTROPHILS % (AUTO) 88.6 % (43.0-81.0); RDW COEFFICIENT OF VARIATION 21.3 (11.5-15.0); RED BLOOD CELL COUNT(AUTO) 2.42 MIL/uL (4.5-6.0); WHITE BLOOD COUNT (AUTO) 23.7 K/uL (4.3-11.0)
[2018-01-28] MEDS: NOREPINEPHRINE 16 MG in IV D5W 500 ML IV PRN ×3 (04:32→18:27)
[2018-01-28 04:47] LABS: CALCIUM, SERUM 7.6 mg/dL (8.5-10.1); CARBON DIOXIDE 28 mmol/L (21-32); CHLORIDE 99 mmol/L (98-107); CREATININE 2.7 mg/dL (0.6-1.3); GLUCOSE 158 mg/dL (74-106); MAGNESIUM 1.9 mg/dL (1.8-2.4); PHOSPHORUS 3.4 mg/dL (2.5-4.9); POTASSIUM 2.9 mmol/L (3.5-5.1); SODIUM SERUM 136 mmol/L (136-145)
[2018-01-28 05:00] LABS: PLATELET COUNT (AUTO) 17 /CMM (150-450)
[2018-01-28 05:01] LABS: UREA NITROGEN, BLOOD 84 mg/dL (7-18)
[2018-01-28 05:13] LABS: EOSINOPHILS % (MANUAL) 4 % (0-4); LYMPHOCYTES % (MANUAL) 5 % (16-48); MONOCYTES % (MANUAL) 3 % (0-11.0); NEUTROPHILS % (MANUAL) 88 (42-76)
[2018-01-28] MEDS: SEVELAMER CARBONATE 0.8 GM POWD.PACK GT SCH ×3 (05:37→21:32)
[2018-01-28] MEDS: MIDODRINE HCL (5MG) 5 MG TABLET GT SCH ×3 (05:38→21:33)
[2018-01-28] MEDS: RENAL NOVASOURCE 1,000 ML BOTTLE GT PRN (05:42)
[2018-01-28] MEDS: BLOOD SUGAR DIAGNOSTIC 1 EACH STRIP IN SCH ×3 (05:57→17:19)
--- NOTE | 2018-01-28 06:30 | NUR ---
HEADING MATCHER AND ASSEMBLER: RELAYED PLATELET RESULT OF [address] BORJA. PT STILL NOTED WT BLOOD TINGED SECRETIONS WHEN SUCTIONED. MD ALBARRAN ORDER FOR HEMATOLOGY CONSULT WT DR. NEWMAN AND TO CONTINUE TO MONITOR PT. NOW ON LEVOPHED AT 20MCG/MIN. GTF TOLERATING WELL WT NO RESIDUAL. WILL ENDORSE TO DAY SHIFT TO FF-UP CONSULT WT DR. NEWMAN. HOB AT 45 DEGREES.
[2018-01-28] MEDS: DOCUSATE SODIUM LIQ 100 MG/10 ML UDC NG SCH ×2 (08:13→16:29)
[2018-01-28] MEDS: ASCORBIC ACID 500 MG TABLET PO SCH (08:13)
[2018-01-28] MEDS: LORATADINE 10 MG TABLET PO SCH (08:13)
[2018-01-28] MEDS: BICALUTAMIDE 50 MG TABLET GT SCH (08:13)
[2018-01-28] MEDS: FLUCONAZOLE (100 MG) 100 MG TABLET PO SCH (08:13)
[2018-01-28] MEDS: TAMSULOSIN 0.4 MG CAP.SR.24H GT SCH (08:13)
[2018-01-28] MEDS: VIT B CMPLX 3/FA/VIT C/BIOTIN 1 TAB TABLET GT SCH (08:13)
[2018-01-28] MEDS: FAMOTIDINE (20 MG) 20 MG TABLET GT SCH (08:13)
[2018-01-28] MEDS: PROSOURCE / PROSTAT (PYXIS) 30 ML UDC GT SCH ×3 (08:14→16:29)
[2018-01-28] MEDS: CADEXOMER IODINE 40 GM TUBE TP SCH (08:15)
[2018-01-28] MEDS: TRIAMCINOLONE ACETONIDE 0.1% CR 15 GM TUBE TP SCH ×3 (08:15→16:29)
[2018-01-28] MEDS: DOXYCYCLINE 100 MG in IV D5W 100 ML IV SCH (08:50)
[2018-01-28] MEDS: IV NS 0.9% 250 ML IV PRN (08:50)
[2018-01-28] MEDS ORDERED: FAMOTIDINE (20 MG) 20 MG TABLET GT SCH (09:00)
[2018-01-28] MEDS ORDERED: POTASSIUM CHLORIDE 20 MEQ POWDER PACKET GT ONE (11:30)
[2018-01-28] MEDS: INSULIN REGULAR, HUMAN 100 UNIT/ML 3 ML VIAL SQ PRN (12:10)
--- NOTE | 2018-01-28 15:00 | NUR ---
ICU/RN - Notes Pt seen and evaluated by Sanjay Rivera NP at bedside. Received new orders to transfuse 1unit of platelet. Addendum: 01/28/18 at 1639 by RENAY BREAUX RN CAR SEAT UPHOLSTERER aware of copious blood tinged sputum secretions
[2018-01-28] MEDS: PHENYLEPHRINE 80 MG in IV NS 0.9% 250 ML IV PRN (18:26)
--- NOTE | 2018-01-28 19:37 | NUR ---
PATIENT RECEIVED ON [facility] VENT WITH SETTINGS SET BY TOLERATED WELL. MECHANICAL VENTILATOR PLUGGED INTO RED OUTLET. VENT ALARMS CHECKED AND ARE AUDIBLE. CUFF PRESSURE CHECKED SECURITY TRAINER. SUCTIONED FOR MODERATE AMOUNT OF SECRETIONS. B/S AUDIBLE BILATERALLY. AMBU BAG AT HOB. Addendum: 01/28/18 at 1937 by FLYNN ANDERSON RT Amended: Links added.
[2018-01-28] MEDS: COLISTIMETHATE SODIUM 100 MG in IV NS 0.9% 50 ML IV SCH (20:05)
[2018-01-28 20:15] LABS: INR 1.4 (0.87-1.13)
[2018-01-28 20:19] LABS: D-DIMER 7.75 mg/L(FEU (0.17-0.50)
[2018-01-28] MEDS: ATORVASTATIN 40 MG TABLET GT SCH (21:32)
[2018-01-28] MEDS: LINEZOLID RTU BAG 600 MG in PREMIX 1 EA IV SCH (21:32)
[2018-01-29] VITALS (107 sets, daily range): BP systolic 71–137; BP diastolic 23–73
[2018-01-29] MEDS ORDERED: NOREPINEPHRINE 4 MG/4 ML AMPUL IV ONE (00:41)
[2018-01-29] MEDS: NOREPINEPHRINE 16 MG in IV D5W 500 ML IV PRN ×4 (00:44→21:20)
[2018-01-29] MEDS: BLOOD SUGAR DIAGNOSTIC 1 EACH STRIP IN SCH ×5 (00:50→23:24)
[2018-01-29] MEDS: INSULIN REGULAR, HUMAN 100 UNIT/ML 3 ML VIAL SQ PRN ×4 (00:52→23:26)
[2018-01-29] MEDS: RENAL NOVASOURCE 1,000 ML BOTTLE GT PRN (04:32)
[2018-01-29] MEDS: IV NS 0.9% 250 ML IV PRN (04:33)
[2018-01-29] MEDS: SEVELAMER CARBONATE 0.8 GM POWD.PACK GT SCH ×3 (04:34→21:18)
[2018-01-29] MEDS: MIDODRINE HCL (5MG) 5 MG TABLET GT SCH ×3 (04:35→21:19)
[2018-01-29 04:52] LABS: HEMATOCRIT 23 % (39-51); HEMOGLOBIN 7.6 g/dL (13.5-17.5); LYMPHOCYTES # (AUTO) 0.3 /CMM (0.8-4.8); LYMPHOCYTES % (AUTO) 2.5 % (20.0-44.0); MEAN CORPUSCULAR HGB CONC 34 g/dl (31.0-36.0); MEAN CORPUSCULAR VOLUME 90 fL (80-96); MONOCYTES # (AUTO) 0.6 /CMM (0.1-1.30); MONOCYTES % (AUTO) 4.7 % (2.0-12.0); NEUTROPHILS # (AUTO) 10.4 /CMM (1.8-8.9); NEUTROPHILS % (AUTO) 81.8 % (43.0-81.0); PLATELET COUNT (AUTO) 70 /CMM (150-450); RDW COEFFICIENT OF VARIATION 19.4 (11.5-15.0); RED BLOOD CELL COUNT(AUTO) 2.52 MIL/uL (4.5-6.0); WHITE BLOOD COUNT (AUTO) 12.7 K/uL (4.3-11.0)
[2018-01-29 05:13] LABS: ALANINE AMINOTRANSFERASE 16 U/L (12-78); ALBUMIN 2.1 g/dL (3.4-5.0); ALKALINE PHOSPHATASE 75 U/L (46-116); ASPARTATE AMINOTRANSFERASE 26 U/L (15-37); BILIRUBIN,TOTAL 1.3 mg/dL (0.2-1.0); CALCIUM, SERUM 7.7 mg/dL (8.5-10.1); CARBON DIOXIDE 27 mmol/L (21-32); CHLORIDE 96 mmol/L (98-107); CREATININE 3.2 mg/dL (0.6-1.3); GLUCOSE 156 mg/dL (74-106); POTASSIUM 3.2 mmol/L (3.5-5.1); SODIUM SERUM 133 mmol/L (136-145); TOTAL PROTEIN, SERUM 5.2 g/dL (6.4-8.2)
[2018-01-29 05:14] LABS: UREA NITROGEN, BLOOD 110 mg/dL (7-18)
[2018-01-29 05:15] LABS: THYROID STIMULATING HORMONE 10.806 uIU/mL (0.358-3.74)
[2018-01-29 05:25] LABS: INR 1.24 (0.87-1.13)
[2018-01-29 05:33] LABS: BAND % (MANUAL) 2 % (0.0-5.0); LYMPHOCYTES % (MANUAL) 5 % (16-48); NEUTROPHILS % (MANUAL) 75 (42-76)
[2018-01-29 05:34] LABS: EOSINOPHILS % (MANUAL) 12 % (0-4); MONOCYTES % (MANUAL) 6 % (0-11.0)
[2018-01-29 05:37] LABS: D-DIMER 6.15 mg/L(FEU (0.17-0.50)
[2018-01-29] MEDS: ALBUMIN 25% 25 GM in PREMIX 1 EA IV PRN (08:30)
[2018-01-29] MEDS: PHENYLEPHRINE 80 MG in IV NS 0.9% 250 ML IV PRN ×2 (08:56→13:30)
--- NOTE | 2018-01-29 09:04 | NUR ---
RN NOTES PT ON HD BP ON 70'S, DR MENDOZA NOTIFIED, RESTARTED ON NEOSYNEPHRINE
[2018-01-29] MEDS: DOCUSATE SODIUM LIQ 100 MG/10 ML UDC NG SCH ×2 (10:31→16:31)
[2018-01-29] MEDS: FAMOTIDINE (20 MG) 20 MG TABLET GT SCH (10:31)
[2018-01-29] MEDS: VIT B CMPLX 3/FA/VIT C/BIOTIN 1 TAB TABLET GT SCH (10:31)
[2018-01-29] MEDS: ASCORBIC ACID 500 MG TABLET PO SCH (10:31)
[2018-01-29] MEDS: TAMSULOSIN 0.4 MG CAP.SR.24H GT SCH (10:31)
[2018-01-29] MEDS: FLUCONAZOLE (100 MG) 100 MG TABLET PO SCH (10:31)
[2018-01-29] MEDS: LORATADINE 10 MG TABLET PO SCH (10:34)
[2018-01-29] MEDS: PROSOURCE / PROSTAT (PYXIS) 30 ML UDC GT SCH ×3 (10:34→16:33)
[2018-01-29] MEDS: BICALUTAMIDE 50 MG TABLET GT SCH (10:34)
[2018-01-29] MEDS: LINEZOLID RTU BAG 600 MG in PREMIX 1 EA IV SCH ×2 (10:35→21:19)
[2018-01-29] MEDS: TRIAMCINOLONE ACETONIDE 0.1% CR 15 GM TUBE TP SCH ×3 (10:42→16:32)
[2018-01-29] MEDS: CADEXOMER IODINE 40 GM TUBE TP SCH (10:43)
[2018-01-29] MEDS ORDERED: IV NS 0.9% 2,000 ML IV PRN (11:00)
--- NOTE | 2018-01-29 11:00 | NUR ---
RN NOTES HD COMPLETED, NO FLUID REMOVED. SBP 80'S. PT ON LEVO@40MCG/MIN, ON NEOSEYNEPHRINE@200MCG/MIN. DR BANDA AWARE OF CURRENT CONDITION PER MD TO GIVE 2L NS WIDE OPEN. ORDER NOTED AND CARRIED OUT
--- NOTE | 2018-01-29 14:30 | NUR ---
RN NOTES PT SBP GOING FROM 80'S TO LOW 100'S. PT ON MAX LEVO @40MCG/MIN AND NEOSYNEPHRINE@300MCG/MIN. SPOKE WITH DR MENDOZA TO VERIFY NEED OF 3RD PRESSOR, NOTIFIED 2LNS BOLUS WAS GIVEN POST HD PER NEPHRO. NO NEW ORDER GIVEN AT THIS TIME. PER OKAY FOR SBP >85. MORENA CHARGE NURSE INFORMED.
[2018-01-29] MEDS: HYDROCORTISONE SOD SUCCINATE 100 MG/2 ML VIAL IV SCH (16:31)
--- NOTE | 2018-01-29 18:43 | NUR ---
RN NOTES NEOSYNEPHRINE HELD. BP STABLE 137/63. ON LEVOPHED @38MCG/MIN. PT IN BED, LETHARGIC. VENT SETTINGS FOLLOWED AC 18 TV600 ANN899% PEEP 0. SUCTIONED FOR AIRWAY CLEARANCE NOTED WITH BLOODY SECRETIONS. MD AWARE. ORAL CARE RENDERED, WOUND TX RENDERED. BED BATH GIVEN. PT AFEBRILE THROUGHOUT THE SHIFT. KEPT COMFORTABLE. ONGOING GTF NOVASOURCE@40ML/HR NO RESIDUAL NOTED. TOLERATED WELL. ISOLATION PRECAUTION OBSERVED. DUE MEDS GIVEN. NEEDS ATTENDED.
--- NOTE | 2018-01-29 19:00 | NUR ---
RN INITIAL NOTES RECEIVED PT SLEEPING ON BED, LETHARGIC BUT AROUSABLE TO NAME AND TOUCH, UNABLE TO FOLLOW COMMANDS. ON VENT WITH SETTINGS AC 18, TV 600, FIO2 70%, PEEP 0, SHILEY 8, SATURATING WELL, NO S/S OF RESP DISTRESS. CURRENTLY ST ON THE MONITOR, HR 100'S. ON LEVOPHED DRIP. GTUBE TO NOVASOURCE FEEDING @ 40MLS/HR, NO RESIDUALS, TOLERATING WELL. RIGHT CHEST WALL HD CATH NOTED. PT IS ANURIC, ON DIAPERS. LEFT UPPER ARM PICC TKO, FLUSHED AND PATENT, NO S/S OF INFILTRATION/INFECTION, DRESSING CDI. BED LOW AND LOCKED, SIDERAILS UP, CALL LIGHT WITHIN REACH. WILL MONITOR
[2018-01-29] MEDS: COLISTIMETHATE SODIUM 100 MG in IV NS 0.9% 50 ML IV SCH (19:31)
[2018-01-29] MEDS: ATORVASTATIN 40 MG TABLET GT SCH (21:21)
[2018-01-30] VITALS (107 sets, daily range): BP systolic 79–135; BP diastolic 37–97
[2018-01-30] MEDS: BLOOD SUGAR DIAGNOSTIC 1 EACH STRIP IN SCH ×3 (05:05→17:45)
[2018-01-30] MEDS: INSULIN REGULAR, HUMAN 100 UNIT/ML 3 ML VIAL SQ PRN ×3 (05:05→17:47)
[2018-01-30] MEDS: MIDODRINE HCL (5MG) 5 MG TABLET GT SCH ×3 (05:07→21:46)
[2018-01-30] MEDS: IV NS 0.9% 250 ML IV PRN (05:07)
[2018-01-30] MEDS: SEVELAMER CARBONATE 0.8 GM POWD.PACK GT SCH ×3 (05:07→21:47)
[2018-01-30 05:37] LABS: INR 1.27 (0.87-1.13)
[2018-01-30 05:47] LABS: D-DIMER 6.8 mg/L(FEU (0.17-0.50)
--- NOTE | 2018-01-30 06:15 | NUR ---
RN CLOSING NOTES PT REMAINS STABLE OF THE MOMENT. ALL DUE MEDS GIVEN, AM CARE PROVIDED. WILL ENDORSE SYDNEE TO AM RN
--- NOTE | 2018-01-30 07:15 | NUR ---
SOLAR MANAGER NOTES RECEIVED PATIENT AWAKE , ALERT X1 ,FOLLOW SIMPLE COMMANDS , NOT IN ACUTE DISTRESS , RESPIRATIONS EVEN AND UNLABORED , SPO2 OF 100% VIA MECHANICAL VENT SETTINGS ORDERED LUIS # [address] , NOTED WITH BLOODY SECRETIONS UPON SUCTIONING , ST 105 ON BEDSIDE MONITOR , GT PATENT AND INTACT WITH NOVASOURCE @ 40ML/HR INFUSING WELL WITH NO RESIDUALS NOTED , RIGHT CHEST WALL HD CATH C/D/I , TENZIN PICC @ TKO , LEVOPHED @ 16MCG/MIN INFUSING WELL , ALL NEEDS ATTENDED , BED ON LOW AND LOCKED POSITION ,SIDE RAILS X2 ,CALL LIGHT WITHIN REACH ,.HOB @ 45 ,WILL CONTINUE TO MONITOR
[2018-01-30 08:08] LABS: IMMUNOGLOBULIN A, SERUM 125 mg/dL (61-437); IMMUNOGLOBULIN G, SERUM 1011 mg/dL (700-1600); IMMUNOGLOBULIN M, SERUM 65 mg/dL (15-143)
[2018-01-30] MEDS: LORATADINE 10 MG TABLET PO SCH (08:29)
[2018-01-30] MEDS: FLUCONAZOLE (100 MG) 100 MG TABLET PO SCH (08:29)
[2018-01-30] MEDS: FAMOTIDINE (20 MG) 20 MG TABLET GT SCH (08:29)
[2018-01-30] MEDS: LINEZOLID RTU BAG 600 MG in PREMIX 1 EA IV SCH ×2 (08:29→21:46)
[2018-01-30] MEDS: HYDROCORTISONE SOD SUCCINATE 100 MG/2 ML VIAL IV SCH ×3 (08:29→17:44)
[2018-01-30] MEDS: VIT B CMPLX 3/FA/VIT C/BIOTIN 1 TAB TABLET GT SCH (08:29)
[2018-01-30] MEDS: PROSOURCE / PROSTAT (PYXIS) 30 ML UDC GT SCH ×3 (08:29→17:44)
[2018-01-30] MEDS: DOCUSATE SODIUM LIQ 100 MG/10 ML UDC NG SCH ×2 (08:29→17:00)
[2018-01-30] MEDS: TAMSULOSIN 0.4 MG CAP.SR.24H GT SCH (08:29)
[2018-01-30] MEDS: ASCORBIC ACID 500 MG TABLET PO SCH (08:29)
[2018-01-30] MEDS: CADEXOMER IODINE 40 GM TUBE TP SCH (08:30)
[2018-01-30] MEDS: TRIAMCINOLONE ACETONIDE 0.1% CR 15 GM TUBE TP SCH ×3 (08:31→17:44)
[2018-01-30] MEDS: BICALUTAMIDE 50 MG TABLET GT SCH (08:51)
[2018-01-30 09:40] LABS: BASOPHILS % (AUTO) 0.1 % (0.0-2.0); EOSINOPHILS % (AUTO) 0.8 % (0.0-6.0); LYMPHOCYTES # (AUTO) 0.6 /CMM (0.8-4.8); LYMPHOCYTES % (AUTO) 2.9 % (20.0-44.0); MEAN CORPUSCULAR HGB CONC 33 g/dl (31.0-36.0); MEAN CORPUSCULAR VOLUME 91 fL (80-96); MONOCYTES # (AUTO) 1.1 /CMM (0.1-1.30); NEUTROPHILS # (AUTO) 17.3 /CMM (1.8-8.9); NEUTROPHILS % (AUTO) 90.2 % (43.0-81.0); RDW COEFFICIENT OF VARIATION 20.5 (11.5-15.0); RED BLOOD CELL COUNT(AUTO) 2.25 MIL/uL (4.5-6.0); WHITE BLOOD COUNT (AUTO) 19.2 K/uL (4.3-11.0)
[2018-01-30 09:57] LABS: HEMOGLOBIN 6.7 g/dL (13.5-17.5)
[2018-01-30 09:58] LABS: HEMATOCRIT 20 % (39-51); PLATELET COUNT (AUTO) 35 /CMM (150-450)
[2018-01-30] MEDS: HYDROCODONE/APAP 5/325MG 1 EACH TABLET PO PRN (09:58)
--- NOTE | 2018-01-30 10:00 | NUR ---
PALLET ASSEMBLER NOTES SEEN AND EVALUATED BY ALONSO POTASH FLAKER , DISCUSSED LABS FROM YESTERDAY , PLT OF 26 , NO LABS TODAY , CHEST XRAY , ON LEVOPHED @ 16MCG/MIN , AWAKE ABLE TO FOLLOW COMMANDS , AFEBRILE , V/S STABLE , BLEEDING ON TRACH SITE UPON SUCTIONING , RECEIVED ORDER OF 1 UNIT PRBC WITH 1 UNIT OF PLATELETS , ORDERS CARRIED OUT
[2018-01-30 10:09] LABS: CALCIUM, SERUM 7.7 mg/dL (8.5-10.1); CARBON DIOXIDE 25 mmol/L (21-32); CHLORIDE 96 mmol/L (98-107); CREATININE 2.8 mg/dL (0.6-1.3); GLUCOSE 194 mg/dL (74-106); POTASSIUM 3.3 mmol/L (3.5-5.1); SODIUM SERUM 131 mmol/L (136-145)
[2018-01-30 10:10] LABS: UREA NITROGEN, BLOOD 89 mg/dL (7-18)
[2018-01-30 11:48] LABS: BAND % (MANUAL) 5 % (0.0-5.0); LYMPHOCYTES % (MANUAL) 3 % (16-48); MONOCYTES % (MANUAL) 8 % (0-11.0); NEUTROPHILS % (MANUAL) 84 (42-76)
--- NOTE | 2018-01-30 12:33 | NUR ---
ROPE MAKING MACHINE OPERATOR NOTES 1151 - PATIENT STABLE PRIOR TO HD , AFEBRILE , V/S STABLE , VERIFIED BLOOD WITH CAROLINE RN , WILL CONTINUE TO MONITOR FOR TRANSFUSION REACTION 1206 NO TRANSFUSION REACTION NOTED , V/S STABLE , AFEBRILE . WILL CONTINUE TO MONITOR
[2018-01-30] MEDS: NOREPINEPHRINE 16 MG in IV D5W 500 ML IV PRN ×2 (13:44→18:02)
[2018-01-30] MEDS: RENAL NOVASOURCE 1,000 ML BOTTLE GT PRN (17:49)
--- NOTE | 2018-01-30 18:36 | NUR ---
RT END OF THE SHIFT REPORT, PT. 82 Y OLD MALE REMAIN TRACHED SHILEY # 8 ON THE VENT WITH NOTED SETTINGS. PT. REMAIN STABLE. VENT ALARMS ARE SET AND AUDIBLE WITH AMBU BAG AT THE BEDSIDE. BOX COVERING MACHINE OPERATOR CUFF PRESSURE NOTED. VENT IS PLUGGED INTO RED OUTLET. HME CHANGED. B/S BILATERALLY RHONCHI EQUAL CHEST RISE NOTED. SX MODERATE THICK RED BLOODY SECRETIONS. NO RESPIRATORY DISTRESS NOTED T/O SHIFT, WILL CONTINUE TO MONITOR. REPORT WILL PASS TO PM SHIFT. Addendum: 01/30/18 at 1837 by ERWIN CHARLTON RT Amended: Links added.
--- NOTE | 2018-01-30 20:00 | NUR ---
RN INITIAL NOTES RECEIVED PATIENT AWAKE , ALERT X1 ,FOLLOW SIMPLE COMMANDS , NOT IN ACUTE DISTRESS , RESPIRATIONS EVEN AND UNLABORED , SPO2 OF 100% VIA MECHANICAL VENT SETTINGS ORDERED LUIS # [address] , NOTED WITH BLOODY SECRETIONS UPON SUCTIONING , SR HR90 ON MONITOR , GT PATENT AND INTACT WITH NOVASOURCE @ 40ML/HR INFUSING WELL WITH NO RESIDUALS NOTED , RIGHT CHEST WALL HD CATH C/D/I , TENZIN PICC @ TKO , ALL NEEDS ATTENDED , BED ON LOW AND LOCKED POSITION ,SIDE RAILS X2 ,CALL LIGHT WITHIN REACH ,.HOB @ 45 ,WILL CONTINUE TO MONITOR
[2018-01-30] MEDS: COLISTIMETHATE SODIUM 100 MG in IV NS 0.9% 50 ML IV SCH (21:33)
[2018-01-30] MEDS: ATORVASTATIN 40 MG TABLET GT SCH (21:46)
[2018-01-31] VITALS (82 sets, daily range): BP systolic 69–139; BP diastolic 41–97
[2018-01-31] MEDS: BLOOD SUGAR DIAGNOSTIC 1 EACH STRIP IN SCH ×5 (00:07→23:35)
[2018-01-31] MEDS: INSULIN REGULAR, HUMAN 100 UNIT/ML 3 ML VIAL SQ PRN ×5 (00:13→23:36)
[2018-01-31] MEDS ORDERED: CEFEPIME 1 GM in IV D5W 50 ML IV SCH (05:00)
[2018-01-31] MEDS: MIDODRINE HCL (5MG) 5 MG TABLET GT SCH ×3 (05:37→21:21)
[2018-01-31] MEDS: SEVELAMER CARBONATE 0.8 GM POWD.PACK GT SCH ×3 (05:37→21:19)
[2018-01-31 05:49] LABS: BASOPHILS # (AUTO) 0.1 /CMM (0.0-0.2); BASOPHILS % (AUTO) 0.3 % (0.0-2.0); EOSINOPHILS % (AUTO) 0.3 % (0.0-6.0); HEMATOCRIT 23 % (39-51); HEMOGLOBIN 7.7 g/dL (13.5-17.5); LYMPHOCYTES # (AUTO) 0.6 /CMM (0.8-4.8); LYMPHOCYTES % (AUTO) 3.3 % (20.0-44.0); MEAN CORPUSCULAR HGB CONC 34 g/dl (31.0-36.0); MEAN CORPUSCULAR VOLUME 88 fL (80-96); MONOCYTES # (AUTO) 1.1 /CMM (0.1-1.30); MONOCYTES % (AUTO) 5.9 % (2.0-12.0); NEUTROPHILS # (AUTO) 16.5 /CMM (1.8-8.9); NEUTROPHILS % (AUTO) 90.2 % (43.0-81.0); PLATELET COUNT (AUTO) 60 /CMM (150-450); RDW COEFFICIENT OF VARIATION 22.9 (11.5-15.0); RED BLOOD CELL COUNT(AUTO) 2.61 MIL/uL (4.5-6.0); WHITE BLOOD COUNT (AUTO) 18.4 K/uL (4.3-11.0)
[2018-01-31 06:14] LABS: CALCIUM, SERUM 7.8 mg/dL (8.5-10.1); CARBON DIOXIDE 23 mmol/L (21-32); CHLORIDE 93 mmol/L (98-107); GLUCOSE 243 mg/dL (74-106); MAGNESIUM 1.6 mg/dL (1.8-2.4); PHOSPHORUS 2.6 mg/dL (2.5-4.9); POTASSIUM 3.5 mmol/L (3.5-5.1); SODIUM SERUM 127 mmol/L (136-145); UREA NITROGEN, BLOOD 103 mg/dL (7-18)
[2018-01-31] MEDS ORDERED: CEFEPIME 1 GM VIAL ONE (06:14)
--- NOTE | 2018-01-31 06:51 | NUR ---
RN CLOSING NOTES PT REMAINS STABLE OF THE MOMENT. ALL DUE MEDS GIVEN. PM CARE PROVIDED. LEVOPHED WAS TITRATED OVER NIGHT. WILL ENDORSE SYDNEE TO AM RN
[2018-01-31] MEDS ORDERED: EPOETIN ALFA (10,000 UNIT) 10,000 UNIT/ML VIAL SQ ONE ×2 (07:00→10:00)
[2018-01-31 07:16] LABS: INR 1.16 (0.87-1.13)
[2018-01-31 07:23] LABS: D-DIMER 5.64 mg/L(FEU (0.17-0.50)
--- NOTE | 2018-01-31 07:46 | NUR ---
RN NOTE; SALINAS HUDSON PAGED FOR HEMOGLOBIN 7.7, AWAITING ORDERS .
[2018-01-31] MEDS: ALBUMIN 25% 25 GM in PREMIX 1 EA IV PRN (09:05)
[2018-01-31] MEDS: TRIAMCINOLONE ACETONIDE 0.1% CR 15 GM TUBE TP SCH ×3 (09:24→18:23)
[2018-01-31] MEDS: CADEXOMER IODINE 40 GM TUBE TP SCH (09:25)
--- NOTE | 2018-01-31 09:50 | NUR ---
RN NOTE; EPOGEN SQ AT 0700 NON-ADMIN DUE TO PATIENT GETTING DIALYSIS AT THIS TIME , ALSO DUPLICATE ORDER , WILL ADMIN 1000 AM DOSE ..
[2018-01-31] MEDS: VIT B CMPLX 3/FA/VIT C/BIOTIN 1 TAB TABLET GT SCH (10:29)
[2018-01-31] MEDS: BICALUTAMIDE 50 MG TABLET GT SCH (10:29)
[2018-01-31] MEDS: TAMSULOSIN 0.4 MG CAP.SR.24H GT SCH (10:29)
[2018-01-31] MEDS: PROSOURCE / PROSTAT (PYXIS) 30 ML UDC GT SCH ×3 (10:29→18:21)
[2018-01-31] MEDS: FAMOTIDINE (20 MG) 20 MG TABLET GT SCH (10:29)
[2018-01-31] MEDS: ASCORBIC ACID 500 MG TABLET PO SCH (10:30)
[2018-01-31] MEDS: DOCUSATE SODIUM LIQ 100 MG/10 ML UDC NG SCH ×2 (10:31→18:21)
[2018-01-31] MEDS: LORATADINE 10 MG TABLET PO SCH (10:31)
[2018-01-31] MEDS: HYDROCORTISONE SOD SUCCINATE 100 MG/2 ML VIAL IV SCH ×3 (10:31→18:21)
[2018-01-31] MEDS: FLUCONAZOLE (100 MG) 100 MG TABLET PO SCH (10:31)
[2018-01-31] MEDS: DOXYCYCLINE 100 MG in IV NS 0.9% 100 ML IV SCH ×2 (10:50→21:21)
--- NOTE | 2018-01-31 11:40 | NUR ---
RN NOTE; [facility] TRANSFUSION STARTED , V/S MONITORED , AFEBRILE , WILL CONTINUE TO MONITOR FOR TRANSFUSION REACTION .
--- NOTE | 2018-01-31 11:52 | NUR ---
RN NOTE; CLARIFIES WITH DR HALLEY NEWMAN , RE; 2 RBC TRANSFUSION ORDER , RECEIVED ORDER ONLY TO GIVE ONE UNIT AT THIS TIME AND TO D/C THE SECOND ORDER . WILL CARRY OUT THE ORDER
[2018-01-31] MEDS: Magnesium 1GM/D5W 100ML PREMIX 100 ML IV SCH ×2 (12:58→14:28)
--- NOTE | 2018-01-31 15:05 | NUR ---
RN NOTE; 0NE UNIT OF [facility] TRANSFUSED , TOLERATED WELL , NO ANY TRANSFUSION REACTION NOTED.
[2018-01-31] MEDS: NOREPINEPHRINE 16 MG in IV D5W 500 ML IV PRN (15:47)
[2018-01-31] MEDS: IV NS 0.9% 250 ML IV PRN (15:48)
--- NOTE | 2018-01-31 18:21 | NUR ---
RT END OF THE SHIFT REPORT, PT. 82 Y OLD MALE REMAIN TRACHED SHILEY # 8 ON THE VENT WITH NOTED SETTINGS. PT. REMAIN STABLE. VENT ALARMS ARE SET AND AUDIBLE WITH AMBU BAG AT THE BEDSIDE. QUALITY ASSURANCE AUDITOR CUFF PRESSURE NOTED. VENT IS PLUGGED INTO RED OUTLET. HME CHANGED. B/S BILATERALLY RHONCHI EQUAL CHEST RISE NOTED. SX MODERATE THICK RED BLOODY SECRETIONS. CONTINUE FOR MONITOR, AND REPORT WILL PASS TO PM SHIFT. Addendum: 01/31/18 at 1822 by ERWIN CHARLTON RT Amended: Links added.
[2018-01-31] MEDS: CEFEPIME 2 GM in IV D5W 100 ML IV SCH (18:22)
--- NOTE | 2018-01-31 19:00 | NUR ---
N INITIAL NOTES RECEIVED AWAKE ON BED, NON-VERBAL BUT ABLE TO FOLLOW SIMPLE COMMANDS. ON VENT WITH SETTINGS AC 18, TV 600, FIO2 60%, PEEP 0, SHILEY 8, SATURATING WELL, NO S/S OF RESP DISTRESS. CURRENTLY ST ON THE MONITOR, HR 100'S. ON LEVOPHED DRIP @ 18MCG/MIN. GTUBE TO NOVASOURCE FEEDING @ 40MLS/HR, NO RESIDUALS, TOLERATING WELL. RIGHT CHEST WALL HD CATH NOTED. PT IS ANURIC, ON DIAPERS. LEFT UPPER ARM PICC TKO, FLUSHED AND PATENT, NO S/S OF INFILTRATION/INFECTION, DRESSING CDI. BED LOW AND LOCKED, SIDERAILS UP, CALL LIGHT WITHIN REACH. WILL MONITOR
--- NOTE | 2018-01-31 19:25 | NUR ---
PT RECEIVED TRACHED SHLY 8. PT IS AWAKE NO RESP DISTRESS NOTED. TOLERATING VENT SETTINGS. SX'D COPIOUS AMT OF BLOODY RED SECRETIONS. VENT ALARMS SET AND AUDIBLE. VENT PLUGGED INTO RED OUTLET. WILL CONTINUE TO MONITOR.
--- NOTE | 2018-01-31 19:25 | NUR ---
RN EOS NOTE; NO ANY DISTRESS NOTED DURING THE SHIFT, ON LEVOPHED @ 18 MCG , BP MAINTAINED . . VENT TOLERATED WELL. TOTAL CARE RENDERED..ENDORSE TO NEXT SHIFT RN FOR CONTINUITY OF CARE ..
[2018-01-31] MEDS: ATORVASTATIN 40 MG TABLET GT SCH (21:20)
[2018-02-01] VITALS (103 sets, daily range): BP systolic 82–151; BP diastolic 19–94
[2018-02-01] MEDS: METRONIDAZOLE 250 MG TABLET PO SCH ×5 (00:32→23:52)
[2018-02-01] MEDS: NOREPINEPHRINE 16 MG in IV D5W 500 ML IV PRN ×2 (01:15→17:19)
[2018-02-01 05:00] LABS: BASOPHILS % (AUTO) 0.1 % (0.0-2.0); EOSINOPHILS % (AUTO) 0.2 % (0.0-6.0); HEMATOCRIT 25 % (39-51); HEMOGLOBIN 8.4 g/dL (13.5-17.5); LYMPHOCYTES # (AUTO) 0.4 /CMM (0.8-4.8); LYMPHOCYTES % (AUTO) 2.8 % (20.0-44.0); MEAN CORPUSCULAR HGB CONC 34 g/dl (31.0-36.0); MEAN CORPUSCULAR VOLUME 87 fL (80-96); MONOCYTES # (AUTO) 1.3 /CMM (0.1-1.30); MONOCYTES % (AUTO) 8.2 % (2.0-12.0); NEUTROPHILS # (AUTO) 14.3 /CMM (1.8-8.9); NEUTROPHILS % (AUTO) 88.7 % (43.0-81.0); RDW COEFFICIENT OF VARIATION 20.5 (11.5-15.0); RED BLOOD CELL COUNT(AUTO) 2.87 MIL/uL (4.5-6.0)
[2018-02-01 05:05] LABS: INR 1.15 (0.87-1.13)
[2018-02-01 05:07] LABS: CALCIUM, SERUM 7.9 mg/dL (8.5-10.1); CARBON DIOXIDE 24 mmol/L (21-32); CHLORIDE 96 mmol/L (98-107); CREATININE 2.5 mg/dL (0.6-1.3); GLUCOSE 159 mg/dL (74-106); PHOSPHORUS 2.6 mg/dL (2.5-4.9); POTASSIUM 3.5 mmol/L (3.5-5.1); SODIUM SERUM 131 mmol/L (136-145)
[2018-02-01] MEDS: BLOOD SUGAR DIAGNOSTIC 1 EACH STRIP IN SCH ×4 (05:07→23:52)
[2018-02-01] MEDS: MIDODRINE HCL (5MG) 5 MG TABLET GT SCH ×3 (05:07→21:12)
[2018-02-01] MEDS: SEVELAMER CARBONATE 0.8 GM POWD.PACK GT SCH ×3 (05:07→21:12)
[2018-02-01] MEDS: RENAL NOVASOURCE 1,000 ML BOTTLE GT PRN (05:08)
[2018-02-01] MEDS: IV NS 0.9% 250 ML IV PRN (05:08)
[2018-02-01 05:09] LABS: UREA NITROGEN, BLOOD 87 mg/dL (7-18)
[2018-02-01] MEDS: INSULIN REGULAR, HUMAN 100 UNIT/ML 3 ML VIAL SQ PRN ×4 (05:09→23:52)
[2018-02-01 05:28] LABS: PLATELET COUNT (AUTO) 42 /CMM (150-450)
--- NOTE | 2018-02-01 06:15 | NUR ---
RN CLOSING NOTES PT REMAINS STABLE OF THE MOMENT. ALL DUE MEDS GIVEN, AM CARE PROVIDED. WILL ENDORSE SYDNEE TO AM RN
--- NOTE | 2018-02-01 07:48 | NUR ---
INITIAL VETERINARY DENTIST NOTE RCVD PT WITH EYES OPEN, RESPONDING TO NAME, ABLE TO FOLLOW SOME SOME SIMPLE COMMANDS SUCH SQUEEZING RNs FINGERS WITH HANDS. SR ON TELE. TOLERATING ORDERED VENT SETTINGS. PEG PLACEMENT VERIFIED BY AUSCULTATION/ASPIRATION. NO RESIDUAL OBTAINED. TENZIN PICC C/D/I/PATENT. NO S/O INFILTRATION/PHLEBITIS OBSERVED. PT ON LEVO MAINTAINING SBP ORDERED. WILL CONTINUE TO MONITOR PT FOR SAFETY AND COMFORT. CALL LIGHT WITHIN REACH. BED IN LOW AND LOCKED POSITION.
[2018-02-01 08:07] LABS: *SPE A/G RATIO 1.2 (0.7-1.7); *SPE ALBUMIN 2.5 g/dL (2.9-4.4); *SPE ALPHA-1-GLOBULIN 0.3 g/dL (0.0-0.4); *SPE ALPHA-2-GLOBULIN 0.3 g/dL (0.4-1.0); *SPE BETA GLOBULIN 0.5 g/dL (0.7-1.3); *SPE GLOBULIN, TOTAL 2.1 g/dL (2.2-3.9); *SPE M-SPIKE Not Observed g/dL (Not Observed)
[2018-02-01] MEDS: DOCUSATE SODIUM LIQ 100 MG/10 ML UDC NG SCH ×2 (09:00→17:00)
[2018-02-01] MEDS: ASCORBIC ACID 500 MG TABLET PO SCH (09:04)
[2018-02-01] MEDS: BICALUTAMIDE 50 MG TABLET GT SCH (09:04)
[2018-02-01] MEDS: FAMOTIDINE (20 MG) 20 MG TABLET GT SCH (09:04)
[2018-02-01] MEDS: PROSOURCE / PROSTAT (PYXIS) 30 ML UDC GT SCH ×3 (09:04→17:20)
[2018-02-01] MEDS: TAMSULOSIN 0.4 MG CAP.SR.24H GT SCH (09:04)
[2018-02-01] MEDS: VIT B CMPLX 3/FA/VIT C/BIOTIN 1 TAB TABLET GT SCH (09:04)
[2018-02-01] MEDS: LORATADINE 10 MG TABLET PO SCH (09:04)
[2018-02-01] MEDS: HYDROCORTISONE SOD SUCCINATE 100 MG/2 ML VIAL IV SCH ×3 (09:08→17:18)
[2018-02-01] MEDS: CADEXOMER IODINE 40 GM TUBE TP SCH (09:42)
[2018-02-01] MEDS: TRIAMCINOLONE ACETONIDE 0.1% CR 15 GM TUBE TP SCH ×3 (09:42→17:19)
[2018-02-01 10:37] LABS: BAND % (MANUAL) 6 % (0.0-5.0); LYMPHOCYTES % (MANUAL) 2 % (16-48); MONOCYTES % (MANUAL) 5 % (0-11.0); NEUTROPHILS % (MANUAL) 87 (42-76)
[2018-02-01] MEDS: DOXYCYCLINE 100 MG in IV NS 0.9% 100 ML IV SCH ×2 (10:55→21:12)
--- NOTE | 2018-02-01 13:55 | NUR ---
KATARZYNA met with pt's daughter Jana Germain and pt's ESTIVEN Edmonds. Per ESTIVEN Edmonds, SALINAS Rivera would like to set up a bioethics meeting to discuss plan of care, expected outcomes, aggressive measures, and advance directives. Jana informed SW that her sister Isabella (DPVINICIO) can meet early next week. KATARZYNA requested for Jana to speak with Isabella and follow up with SW as to what day and time next week works best for a meeting and KATARZYNA will speak with the physician, CYNTHIA Rubio and Dr. Painter to arrange for a bioethics meeting for next week. Jana Reynoso ; cell ; Isabella (JANET)
[2018-02-01] MEDS: CEFEPIME 2 GM in IV D5W 100 ML IV SCH (17:18)
[2018-02-01] MEDS: Z GUARD REMEDY 2 OZ OINT TP PRN (17:19)
--- NOTE | 2018-02-01 18:33 | NUR ---
COAL WHEELER NOTE NO CHANGE IN PT'S CONDITION, SR ON TELE, TOLERATING ORDERED VENT SETTINGS WITH BLOODY SECRETIONS FROM TRACH. TOLERATING TUBE FEEDING RATE, TENZIN PICC C/D/I/PATENT. NO S/O INFILTRATION/PHLEBITIS OBSERVED UPON FLUSHING. BED IN LOW AND LOCKED POSITION. CALL LIGHT WITHIN REACH.
--- NOTE | 2018-02-01 18:38 | NUR ---
RT END OF THE SHIFT REPORT, PT. 82 Y OLD MALE REMAIN TRACHED SHILEY # 8 AND SECURED. ON THE VENT WITH NOTED SETTINGS. PT. REMAIN STABLE. VENT ALARMS ARE SET AND AUDIBLE WITH AMBU BAG AT THE BEDSIDE. MATE FISHING VESSEL CUFF PRESSURE NOTED. VENT IS PLUGGED INTO RED OUTLET. HME CHANGED X2 B/S BILATERALLY RHONCHI EQUAL CHEST RISE NOTED. SX MODERATE THICK BLOODY SECRETIONS. NO RESPIRATORY DISTRESS NOTED T/O SHIFT, WILL CONTINUE TO MONITOR. REPORT WILL PASS TO PM SHIFT. Addendum: 02/01/18 at 1839 by ERWIN CHARLTON RT Amended: Links added.
--- NOTE | 2018-02-01 19:00 | NUR ---
INITIAL NOTES RECEIVED AWAKE ON BED, NON-VERBAL BUT ABLE TO FOLLOW SIMPLE COMMANDS. ON VENT WITH SETTINGS AC 18, TV 600, FIO2 60%, PEEP 0, SHILEY 8, SATURATING WELL, NO S/S OF RESP DISTRESS. CURRENTLY ST ON THE MONITOR, HR 100'S. ON LEVOPHED DRIP @ 10MCG/MIN. GTUBE TO NOVASOURCE FEEDING @ 40MLS/HR, NO RESIDUALS, TOLERATING WELL. RIGHT CHEST WALL HD CATH NOTED. PT IS ANURIC, ON DIAPERS. LEFT UPPER ARM PICC TKO, FLUSHED AND PATENT, NO S/S OF INFILTRATION/INFECTION, DRESSING CDI. BED LOW AND LOCKED, SIDERAILS UP, CALL LIGHT WITHIN REACH. WILL MONITOR
--- NOTE | 2018-02-01 19:46 | NUR ---
PT RECEIVED TRACHED SHLY 8. PT IS AWAKE NO RESP DISTRESS NOTED. TOLERATING VENT SETTINGS. SX'D FOR MOD AMT OF THIN SECRETIONS. VENT ALARMS SET AND AUDIBLE. VENT PLUGGED INTO RED OUTLET. WILL CONTINUE TO MONITOR. Addendum: 02/01/18 at 1946 by ALLEY FLORES RT Amended: Links added.
[2018-02-01] MEDS: ATORVASTATIN 40 MG TABLET GT SCH (21:12)
[2018-02-02] VITALS (118 sets, daily range): BP systolic 77–142; BP diastolic 29–81
[2018-02-02] MEDS: BLOOD SUGAR DIAGNOSTIC 1 EACH STRIP IN SCH ×4 (05:11→23:29)
[2018-02-02] MEDS: INSULIN REGULAR, HUMAN 100 UNIT/ML 3 ML VIAL SQ PRN ×4 (05:12→23:30)
[2018-02-02] MEDS: METRONIDAZOLE 250 MG TABLET PO SCH ×4 (05:16→23:29)
[2018-02-02] MEDS: MIDODRINE HCL (5MG) 5 MG TABLET GT SCH ×3 (05:16→20:57)
[2018-02-02] MEDS: SEVELAMER CARBONATE 0.8 GM POWD.PACK GT SCH ×3 (05:16→20:57)
[2018-02-02] MEDS: IV NS 0.9% 250 ML IV PRN ×2 (05:17→20:59)
[2018-02-02] MEDS: RENAL NOVASOURCE 1,000 ML BOTTLE GT PRN (05:19)
--- NOTE | 2018-02-02 06:10 | NUR ---
RN CLOSING NOTES PT REMAINS STABLE OF THE MOMENT. ALL DUE MEDS GIVEN, AM CARE PROVIDED. WILL ENDORSE SYDNEE TO AM RN
--- NOTE | 2018-02-02 07:35 | NUR ---
INITIAL BUFFER CHROME NOTE PT AWAKE AND ALERT TO SELF, ABLE TO MAKE NEEDS KNOWN TO RN. NO S/O DISTRESS/PAIN AT THIS TIME. ST ON TELE. TOLERATING ORDERED VENT SETTINGS. PEG PLACEMENT VERIFIED BY AUSCULTATION/ASPIRATION. NO TUBE FEEDING RESIDUAL OBTAINED. TENZIN PICC C/D/I/PATENT. NO S/O INFILTRATION/PHLEBITIS OBSERVED. WILL CONTINUE TO MONITOR PT FOR SAFETY AND COMFORT. CALL LIGHT WITHIN REACH. BED IN LOW AND LOCKED POSITION.
[2018-02-02 07:50] LABS: EOSINOPHILS % (AUTO) 0.1 % (0.0-6.0); HEMATOCRIT 23 % (39-51); HEMOGLOBIN 7.5 g/dL (13.5-17.5); LYMPHOCYTES # (AUTO) 0.5 /CMM (0.8-4.8); LYMPHOCYTES % (AUTO) 3.2 % (20.0-44.0); MEAN CORPUSCULAR HGB CONC 33 g/dl (31.0-36.0); MEAN CORPUSCULAR VOLUME 88 fL (80-96); MONOCYTES # (AUTO) 1.2 /CMM (0.1-1.30); MONOCYTES % (AUTO) 7.1 % (2.0-12.0); NEUTROPHILS # (AUTO) 14.6 /CMM (1.8-8.9); NEUTROPHILS % (AUTO) 89.6 % (43.0-81.0); RED BLOOD CELL COUNT(AUTO) 2.62 MIL/uL (4.5-6.0); WHITE BLOOD COUNT (AUTO) 16.3 K/uL (4.3-11.0)
[2018-02-02 08:04] LABS: CALCIUM, SERUM 8.1 mg/dL (8.5-10.1); CARBON DIOXIDE 24 mmol/L (21-32); CHLORIDE 95 mmol/L (98-107); CREATININE 3.1 mg/dL (0.6-1.3); GLUCOSE 165 mg/dL (74-106); POTASSIUM 3.3 mmol/L (3.5-5.1); SODIUM SERUM 131 mmol/L (136-145)
[2018-02-02 08:05] LABS: UREA NITROGEN, BLOOD 123 mg/dL (7-18)
[2018-02-02 08:16] LABS: PLATELET COUNT (AUTO) 48 /CMM (150-450)
[2018-02-02] MEDS: HYDROCORTISONE SOD SUCCINATE 100 MG/2 ML VIAL IV SCH ×3 (08:51→17:15)
[2018-02-02] MEDS: PROSOURCE / PROSTAT (PYXIS) 30 ML UDC GT SCH ×3 (08:51→17:17)
[2018-02-02] MEDS: BICALUTAMIDE 50 MG TABLET GT SCH (08:51)
[2018-02-02] MEDS: VIT B CMPLX 3/FA/VIT C/BIOTIN 1 TAB TABLET GT SCH (08:52)
[2018-02-02] MEDS: FAMOTIDINE (20 MG) 20 MG TABLET GT SCH (08:52)
[2018-02-02] MEDS: DOXYCYCLINE 100 MG in IV NS 0.9% 100 ML IV SCH ×2 (08:52→20:59)
[2018-02-02] MEDS: TAMSULOSIN 0.4 MG CAP.SR.24H GT SCH (08:52)
[2018-02-02] MEDS: DOCUSATE SODIUM LIQ 100 MG/10 ML UDC NG SCH ×2 (08:52→16:48)
[2018-02-02] MEDS: ASCORBIC ACID 500 MG TABLET PO SCH (08:52)
[2018-02-02] MEDS: LORATADINE 10 MG TABLET PO SCH (08:52)
[2018-02-02] MEDS: TRIAMCINOLONE ACETONIDE 0.1% CR 15 GM TUBE TP SCH ×3 (08:58→17:17)
[2018-02-02] MEDS: CADEXOMER IODINE 40 GM TUBE TP SCH (08:58)
[2018-02-02 09:10] LABS: ABG BASE EXCESS -3.9 mmol/L; ABG OXYGEN SATURATION 91.8 % (92.0-98.5); ABG PCO2 50.3 mmHg (35.0-45.0); ABG PH 7.276 (7.350-7.450); ABG PO2 69.8 mmHg (75.0-100.0); AaDO2 302.7 mmHg; COHb 1.4 % (0.5-1.5); MetHb 0.5 % (0.0-1.5); O2Hb 90.1 % (94.0-97.0); PEEP,BG 0 cm H2O; SITE, ABG Right Radial; VT, ABG 600 mL
[2018-02-02 11:32] LABS: BAND % (MANUAL) 4 % (0.0-5.0); LYMPHOCYTES % (MANUAL) 2 % (16-48); MONOCYTES % (MANUAL) 5 % (0-11.0); NEUTROPHILS % (MANUAL) 89 (42-76)
[2018-02-02] MEDS: ALBUMIN 25% 25 GM in PREMIX 1 EA IV PRN (12:43)
--- NOTE | 2018-02-02 14:44 | NUR ---
RT NOTE: PATIENT RECEIVED WITH#8 SHILEY TRACH ON PB 840 VENT. SETTING PER MD ORDER. ALARMS VERIFIED AND AUDIBLE. SUCTIONED AND LAVAGED LARGE AMOUNT OF BLOODY SECRETIONS( AWARE). VENT PLUGGED INTO RED OUTLET. AMBU BAG AT [facility].
--- NOTE | 2018-02-02 16:11 | NUR ---
EDUCATION NURSE NOTE SALINAS BEGUM IN UNIT AWARE OF HGB TRENDING DOWN 7.5 TODAY WITH THIN, BRIGHT BLOOD SECRETIONS FROM TRACH UPON SUCTIONING. HE RECOMMENDED TO TRANSFUSE ONE UNIT PRBC. WILL CONTINUE TO MONITOR PT.
[2018-02-02] MEDS: CEFEPIME 2 GM in IV D5W 100 ML IV SCH (17:15)
[2018-02-02] MEDS: NOREPINEPHRINE 16 MG in IV D5W 500 ML IV PRN (17:38)
--- NOTE | 2018-02-02 18:50 | NUR ---
ACOUSTICAL TILE CARPENTERS SUPERVISOR NOTE NO CHANGE IN PT'S CONDITION, SBP SUPPORTED WITH LEVO. ST-SR ON TELE, TOLERATING ORDERED VENT SETTINGS AND TUBE FEEDING RATE. PT'S CARE WILL BE ENDORSED TO BODY AND FRAME MAN RN FOR CONTINUITY OF CARE. BED IN LOW AND LOCKED POSITION.
--- NOTE | 2018-02-02 19:00 | NUR ---
RN INITIAL NOTES RECEIVED AWAKE ON BED, NON-VERBAL BUT ABLE TO FOLLOW SIMPLE COMMANDS. ON VENT WITH SETTINGS AC 18, TV 650, FIO2 60%, PEEP 0, SHILEY 8, SATURATING WELL, NO S/S OF RESP DISTRESS. CURRENTLY SR ON THE MONITOR, HR 90'S. ON LEVOPHED DRIP @ 12MCG/MIN. GTUBE TO NOVASOURCE FEEDING @ 40MLS/HR, NO RESIDUALS, TOLERATING WELL. RIGHT CHEST WALL HD CATH NOTED. PT IS ANURIC, ON DIAPERS. LEFT UPPER ARM PICC TKO, FLUSHED AND PATENT, NO S/S OF INFILTRATION/INFECTION, DRESSING CDI. BED LOW AND LOCKED, SIDERAILS UP, CALL LIGHT WITHIN REACH. WILL MONITOR
--- NOTE | 2018-02-02 20:35 | NUR ---
PT RECEIVED TRACHED SHLY 8 ON VENT. PT IS AWAKE AND TOLERATING VENT SETTINGS. SX'D FOR LARGE AMT OF THIN RED SECRETIONS. VENT ALARMS SET AND AUDIBLE AMBU BAG AT HOB. VENT PLUGGED INTO RED OUTLET. WILL CONTINUE TO MONITOR. Addendum: 02/02/18 at 2035 by COLTEN EUGENE RT Amended: Links added.
[2018-02-02] MEDS: ATORVASTATIN 40 MG TABLET GT SCH (21:01)
[2018-02-03] VITALS (105 sets, daily range): BP systolic 78–132; BP diastolic 32–95
[2018-02-03 04:44] LABS: BASOPHILS % (AUTO) 0.2 % (0.0-2.0); EOSINOPHILS % (AUTO) 0.1 % (0.0-6.0); HEMATOCRIT 25 % (39-51); HEMOGLOBIN 8.2 g/dL (13.5-17.5); LYMPHOCYTES # (AUTO) 0.3 /CMM (0.8-4.8); LYMPHOCYTES % (AUTO) 2.1 % (20.0-44.0); MEAN CORPUSCULAR HGB CONC 33 g/dl (31.0-36.0); MEAN CORPUSCULAR VOLUME 91 fL (80-96); MONOCYTES # (AUTO) 0.9 /CMM (0.1-1.30); NEUTROPHILS # (AUTO) 13.2 /CMM (1.8-8.9); NEUTROPHILS % (AUTO) 91.6 % (43.0-81.0); RDW COEFFICIENT OF VARIATION 19.2 (11.5-15.0); RED BLOOD CELL COUNT(AUTO) 2.76 MIL/uL (4.5-6.0); WHITE BLOOD COUNT (AUTO) 14.4 K/uL (4.3-11.0)
[2018-02-03 05:00] LABS: PLATELET COUNT (AUTO) 34 /CMM (150-450)
[2018-02-03 05:08] LABS: CALCIUM, SERUM 8.3 mg/dL (8.5-10.1); CARBON DIOXIDE 27 mmol/L (21-32); CHLORIDE 98 mmol/L (98-107); CREATININE 2.4 mg/dL (0.6-1.3); GLUCOSE 160 mg/dL (74-106); POTASSIUM 3.3 mmol/L (3.5-5.1); SODIUM SERUM 134 mmol/L (136-145)
[2018-02-03 05:10] LABS: BAND % (MANUAL) 4 % (0.0-5.0); LYMPHOCYTES % (MANUAL) 6 % (16-48); MONOCYTES % (MANUAL) 2 % (0-11.0); NEUTROPHILS % (MANUAL) 88 (42-76)
[2018-02-03 05:14] LABS: UREA NITROGEN, BLOOD 95 mg/dL (7-18)
[2018-02-03] MEDS: BLOOD SUGAR DIAGNOSTIC 1 EACH STRIP IN SCH ×4 (05:18→23:38)
[2018-02-03] MEDS: METRONIDAZOLE 250 MG TABLET PO SCH ×4 (05:19→23:31)
[2018-02-03] MEDS: INSULIN REGULAR, HUMAN 100 UNIT/ML 3 ML VIAL SQ PRN ×4 (05:19→23:41)
[2018-02-03] MEDS: MIDODRINE HCL (5MG) 5 MG TABLET GT SCH ×3 (05:19→20:30)
[2018-02-03] MEDS: SEVELAMER CARBONATE 0.8 GM POWD.PACK GT SCH ×3 (05:19→20:31)
--- NOTE | 2018-02-03 06:00 | NUR ---
RN CLOSING NOTES PT REMAINS STABLE OF THE MOMENT. ALL DUE MEDS GIVEN, AM CARE PROVIDED. WILL ENDORSE SYDNEE TO AM RN
--- NOTE | 2018-02-03 07:45 | NUR ---
RT PT RECEIVED TRACHED WITH A SHILEY 8 ON THE VENT WITH NOTED SETTINGS. PT IS AWAKE AND APPEARS TO BE ALERT. VENT IS PLUGGED INTO RED OUTLET. VENT ALARMS ARE SET AND AUDIBLE WITH BVM BY BEDSIDE. BUGGYMAN CUFF PRESSURE NOTED. PT SX LARGE THICK/THIN BLOOD TINGED SECRETIONS. NO SIGNS OF RESPIRATORY DISTRESS NOTED AT THIS TIME, WILL CONTINUE TO MONITOR. Addendum: 02/03/18 at 1641 by KESHAWN REEVES RT Amended: Links added.
[2018-02-03] MEDS: HYDROCORTISONE SOD SUCCINATE 100 MG/2 ML VIAL IV SCH ×3 (08:18→17:31)
[2018-02-03] MEDS: DOCUSATE SODIUM LIQ 100 MG/10 ML UDC NG SCH ×2 (08:18→17:00)
[2018-02-03] MEDS: FAMOTIDINE (20 MG) 20 MG TABLET GT SCH (08:18)
[2018-02-03] MEDS: VIT B CMPLX 3/FA/VIT C/BIOTIN 1 TAB TABLET GT SCH (08:18)
[2018-02-03] MEDS: LORATADINE 10 MG TABLET PO SCH (08:18)
[2018-02-03] MEDS: BICALUTAMIDE 50 MG TABLET GT SCH (08:18)
[2018-02-03] MEDS: TAMSULOSIN 0.4 MG CAP.SR.24H GT SCH (08:18)
[2018-02-03] MEDS: ASCORBIC ACID 500 MG TABLET PO SCH (08:19)
[2018-02-03] MEDS: Z GUARD REMEDY 2 OZ OINT TP PRN (08:21)
[2018-02-03] MEDS: TRIAMCINOLONE ACETONIDE 0.1% CR 15 GM TUBE TP SCH ×3 (08:21→17:32)
[2018-02-03] MEDS: PROSOURCE / PROSTAT (PYXIS) 30 ML UDC GT SCH ×3 (08:22→17:31)
[2018-02-03] MEDS: CADEXOMER IODINE 40 GM TUBE TP SCH (08:22)
[2018-02-03] MEDS: MINERAL OIL/PETROLATUM,WHITE 120 GM JAR TP PRN (08:22)
[2018-02-03] MEDS: DOXYCYCLINE 100 MG in IV NS 0.9% 100 ML IV SCH ×2 (10:46→20:33)
--- NOTE | 2018-02-03 12:13 | NUR ---
SW left a voicemail message for pt's daughter Isabella (DPOA) requesting a call back in regards to scheduling a bioethics meeting per their request to discuss plan of care.
[2018-02-03] MEDS: NOREPINEPHRINE 16 MG in IV D5W 500 ML IV PRN (12:59)
[2018-02-03] MEDS: CEFEPIME 2 GM in IV D5W 100 ML IV SCH (18:00)
--- NOTE | 2018-02-03 19:30 | NUR ---
COLOR DEVELOPER: RECEIVED CHRONIC VENT DEPENDENT TO TRACH PT, ALERT AND AWAKE. EYES TRACK AND FOLLOW SIMPLE COMMANDS AT TIMES SUCH NODDING OF HEAD. VENT SETTINGS ORDERED WT NO ACUTE DISTRESS. NO EVIDENCE OF DISCOMFORT. SR WT BBB ON MELTING FURNACE SKIMMER. AFEBRILE. TENZIN INFUSING LEVOPHED AT 12 MCG/MIN TO FOR BP SUPPORT. GT IN PLACE RUNNING NEPRO AT 40ML/HR WT NO RESIDUAL. RT. SUBCLAVIAN HD CATH INTACT. STILL WT BLEEDING WHEN SUCTIONED VIA TRACH. HOB AT 45 DEGREES. ASPIRATION PRECAUTION NOTED. WILL CONTINUE TO MONITOR.
--- NOTE | 2018-02-03 20:08 | NUR ---
PT RECEIVED TRACHED SHLY 8 ON VENT. PT IS AWAKE AND TOLERATING VENT SETTINGS. SX'D FOR LARGE AMT OF THIN RED SECRETIONS. VENT ALARMS SET AND AUDIBLE AMBU BAG AT HOB. VENT PLUGGED INTO RED OUTLET. WILL CONTINUE TO MONITOR. Addendum: 02/03/18 at 2009 by COLTEN EUGENE RT Amended: Links added.
[2018-02-03] MEDS: NEPRO 1,000 ML BOTTLE GT PRN (20:36)
[2018-02-03] MEDS: ATORVASTATIN 40 MG TABLET GT SCH (21:03)
[2018-02-03] MEDS: IV NS 0.9% 250 ML IV PRN (21:24)
[2018-02-04] VITALS (82 sets, daily range): BP systolic 66–169; BP diastolic 26–113
[2018-02-04 04:50] LABS: BASOPHILS # (AUTO) 0.1 /CMM (0.0-0.2); BASOPHILS % (AUTO) 0.5 % (0.0-2.0); EOSINOPHILS % (AUTO) 0.4 % (0.0-6.0); HEMATOCRIT 24 % (39-51); HEMOGLOBIN 8.3 g/dL (13.5-17.5); LYMPHOCYTES # (AUTO) 0.7 /CMM (0.8-4.8); MEAN CORPUSCULAR HGB CONC 34 g/dl (31.0-36.0); MEAN CORPUSCULAR VOLUME 90 fL (80-96); MONOCYTES # (AUTO) 0.6 /CMM (0.1-1.30); NEUTROPHILS # (AUTO) 17.1 /CMM (1.8-8.9); NEUTROPHILS % (AUTO) 92.1 % (43.0-81.0); RDW COEFFICIENT OF VARIATION 18.5 (11.5-15.0); WHITE BLOOD COUNT (AUTO) 18.6 K/uL (4.3-11.0)
[2018-02-04 05:15] LABS: CALCIUM, SERUM 8.4 mg/dL (8.5-10.1); CARBON DIOXIDE 23 mmol/L (21-32); CHLORIDE 97 mmol/L (98-107); CREATININE 2.9 mg/dL (0.6-1.3); GLUCOSE 183 mg/dL (74-106); POTASSIUM 3.4 mmol/L (3.5-5.1); SODIUM SERUM 133 mmol/L (136-145)
[2018-02-04 05:19] LABS: UREA NITROGEN, BLOOD 124 mg/dL (7-18)
--- NOTE | 2018-02-04 05:20 | NUR ---
SENIOR ACTUARIAL ANALYST: RECEIVED PLATELET=27, WILL ENDORSE TO DAY SHIFT TO INFORM MD. PT STILL HAS ACTIVE TRACHEAL BLEEDING. STILL ON LEVOPHED AT 12MCG/MIN. TOLERATING GTF WELL WT NO RESIDUAL.
[2018-02-04 05:27] LABS: PLATELET COUNT (AUTO) 27 /CMM (150-450)
[2018-02-04] MEDS: SEVELAMER CARBONATE 0.8 GM POWD.PACK GT SCH ×3 (05:33→20:32)
[2018-02-04] MEDS: METRONIDAZOLE 250 MG TABLET PO SCH ×4 (05:33→23:32)
[2018-02-04] MEDS: MIDODRINE HCL (5MG) 5 MG TABLET GT SCH ×3 (05:33→20:32)
[2018-02-04] MEDS: BLOOD SUGAR DIAGNOSTIC 1 EACH STRIP IN SCH ×4 (05:40→23:32)
[2018-02-04] MEDS: INSULIN REGULAR, HUMAN 100 UNIT/ML 3 ML VIAL SQ PRN ×4 (05:42→23:51)
[2018-02-04 06:30] LABS: BAND % (MANUAL) 2 % (0.0-5.0); LYMPHOCYTES % (MANUAL) 4 % (16-48); MONOCYTES % (MANUAL) 7 % (0-11.0); MYELOCYTES % 2 % (0-0); NEUTROPHILS % (MANUAL) 85 (42-76)
--- NOTE | 2018-02-04 07:44 | NUR ---
RT PT RECEIVED TRACHED WITH A SHILEY 8 ON THE VENT WITH NOTED SETTINGS. PT IS AWAKE AND APPEARS TO BE ALERT. VENT IS PLUGGED INTO RED OUTLET. VENT ALARMS ARE SET AND AUDIBLE WITH BVM BY BEDSIDE. RN INTERNAL MEDICINE CUFF PRESSURE NOTED. PT SX'D LARGE THICK/THIN BLOOD TINGED SECRETIONS. NO SIGNS OF RESPIRATORY DISTRESS NOTED AT THIS TIME, WILL CONTINUE TO MONITOR. Addendum: 02/04/18 at 1410 by KESHAWN REEVES RT Amended: Links added.
[2018-02-04] MEDS: VIT B CMPLX 3/FA/VIT C/BIOTIN 1 TAB TABLET GT SCH (08:35)
[2018-02-04] MEDS: LORATADINE 10 MG TABLET PO SCH (08:35)
[2018-02-04] MEDS: BICALUTAMIDE 50 MG TABLET GT SCH (08:35)
[2018-02-04] MEDS: DOCUSATE SODIUM LIQ 100 MG/10 ML UDC NG SCH ×2 (08:35→17:30)
[2018-02-04] MEDS: TAMSULOSIN 0.4 MG CAP.SR.24H GT SCH (08:35)
[2018-02-04] MEDS: ASCORBIC ACID 500 MG TABLET PO SCH (08:35)
[2018-02-04] MEDS: FAMOTIDINE (20 MG) 20 MG TABLET GT SCH (08:35)
[2018-02-04] MEDS: HYDROCORTISONE SOD SUCCINATE 100 MG/2 ML VIAL IV SCH ×3 (08:35→17:30)
[2018-02-04] MEDS: MINERAL OIL/PETROLATUM,WHITE 120 GM JAR TP PRN (08:36)
[2018-02-04] MEDS: PROSOURCE / PROSTAT (PYXIS) 30 ML UDC GT SCH ×3 (08:37→17:30)
[2018-02-04] MEDS: CADEXOMER IODINE 40 GM TUBE TP SCH (08:38)
[2018-02-04] MEDS: TRIAMCINOLONE ACETONIDE 0.1% CR 15 GM TUBE TP SCH ×3 (08:38→17:46)
[2018-02-04] MEDS: NOREPINEPHRINE 16 MG in IV D5W 500 ML IV PRN ×3 (09:10→23:32)
[2018-02-04] MEDS: DOXYCYCLINE 100 MG in IV NS 0.9% 100 ML IV SCH ×2 (09:12→20:32)
--- NOTE | 2018-02-04 10:09 | NUR ---
KATARZYNA left a message for pt's daughter Jana in regards to scheduling a meeting with the physician for Thursday, February 08 per the family's request. KATARZYNA also left Jana a message informing her that KATARZYNA left Isabella (DPVINICIO) a message yesterday but did not get a call back.
--- NOTE | 2018-02-04 11:51 | NUR ---
Bioethics meeting has been scheduled for ThursdayFebruary 08 at 9:45AM with (DPOA) daughter Jana Mason, Dr. Painter, SALINAS BEGUM and CYNTHIA Rubio.
[2018-02-04] MEDS: NEPRO 1,000 ML BOTTLE GT PRN (13:02)
[2018-02-04] MEDS: PHENYLEPHRINE 80 MG in IV NS 0.9% 250 ML IV PRN (14:47)
--- NOTE | 2018-02-04 14:52 | NUR ---
LEARNING CENTER COORDINATOR NOTE BP STARTED ON SECOND PRESSOR. B/P 88/52 ON LEVO 40MCG/ HR. MARY CHARGE NURSE AWARE.
--- NOTE | 2018-02-04 16:30 | NUR ---
INTERNAL CONTROLS CONSULTANT NOTE SPOKE TO DR. NEWMAN WILL HOLD PLT TRANSFUSION FOR NOW. REPORTED TO KEL Mata
[2018-02-04] MEDS: CEFEPIME 2 GM in IV D5W 100 ML IV SCH (17:29)
--- NOTE | 2018-02-04 19:34 | NUR ---
FLOORING MECHANIC NOTE PT A/O X1 .. PT B/P UNSTABLE THROUGH SHIFT. PT ON LEVO 40MCG/MIN AND CHANG 100MCG/MIN. REPORT GIVEN TO ALLISON JEAN-BAPTISTE. ALL SAFETY MEASURES IN PLACE . ALL ORDERS CARRIED OUT. PT CLEAN AND DRY. SPUTUM AND MRSA CX SENT.
--- NOTE | 2018-02-04 20:00 | NUR ---
TRUCK TERMINAL MANAGER NOTES RECEIVED PT IN BED. OPENS EYES TO TOUCH. DOES NOT FOLLOW COMMANDS. ON VENT VIA TRACH AT ORDERED SETTINGS. TOLERATING FAIR, PT SUCTIONED. TELE READS SR WITH BBB. GT IN PLACE, RUNNING NEPHRO AT 40 ML/HR, GASTRIC RESIDUAL OF 120 ML. ANURIC WITH HD. RSC PERMACATH AND TENZIN PICC. BILATERAL ARMS EDEMATOUS AND WEEPING. TURNED AND REPOSITIONED. HOB ELEVATED, SIDE RAILS X3.
[2018-02-04] MEDS: ATORVASTATIN 40 MG TABLET GT SCH (21:01)
[2018-02-04] MEDS: IV NS 0.9% 250 ML IV PRN (22:01)
[2018-02-05] VITALS (84 sets, daily range): BP systolic 41–162; BP diastolic 21–104
[2018-02-05] MEDS: SEVELAMER CARBONATE 0.8 GM POWD.PACK GT SCH ×2 (05:25→12:09)
[2018-02-05] MEDS: PHENYLEPHRINE 80 MG in IV NS 0.9% 250 ML IV PRN ×2 (05:25→15:06)
[2018-02-05] MEDS: METRONIDAZOLE 250 MG TABLET PO SCH ×3 (05:26→17:40)
[2018-02-05] MEDS: MIDODRINE HCL (5MG) 5 MG TABLET GT SCH ×2 (05:26→12:10)
[2018-02-05] MEDS: BLOOD SUGAR DIAGNOSTIC 1 EACH STRIP IN SCH ×3 (05:39→17:40)
[2018-02-05] MEDS: INSULIN REGULAR, HUMAN 100 UNIT/ML 3 ML VIAL SQ PRN ×2 (05:45→12:09)
[2018-02-05 07:50] LABS: BASOPHILS # (AUTO) 0.6 /CMM (0.0-0.2); BASOPHILS % (AUTO) 1.5 % (0.0-2.0); EOSINOPHILS % (AUTO) 0.7 % (0.0-6.0); LYMPHOCYTES # (AUTO) 1.8 /CMM (0.8-4.8); LYMPHOCYTES % (AUTO) 4.5 % (20.0-44.0); MEAN CORPUSCULAR HGB CONC 35 g/dl (31.0-36.0); MEAN CORPUSCULAR VOLUME 95 fL (80-96); MONOCYTES # (AUTO) 1.7 /CMM (0.1-1.30); MONOCYTES % (AUTO) 4.3 % (2.0-12.0); NEUTROPHILS # (AUTO) 36.1 /CMM (1.8-8.9); RDW COEFFICIENT OF VARIATION 22.6 (11.5-15.0)
--- NOTE | 2018-02-05 07:53 | NUR ---
RN NOTES RECEIVED PT FROM CONTINUOUS WAVE OPERATOR, VENT/TRACH DEPENDENT, OPENS EYES, UNABLE TO FOLLOW COMMANDS. TOLERATING VENT SETTINGS. SR HR 102. TENZIN MIDLINE INTACT WITH LEVO AND CHANG INFUSING. GTF AT 40ML/HR. BED LOCKED AND IN LOWEST POSITION, SIDE RAILS UPX3, WILL CONT TO DARBY.
[2018-02-05 07:54] LABS: RED BLOOD CELL COUNT(AUTO) 1.96 MIL/uL (4.5-6.0); WHITE BLOOD COUNT (AUTO) 40.5 K/uL (4.3-11.0)
[2018-02-05 07:55] LABS: HEMATOCRIT 19 % (39-51); HEMOGLOBIN 6.4 g/dL (13.5-17.5); PLATELET COUNT (AUTO) 20 /CMM (150-450)
[2018-02-05] MEDS: LORATADINE 10 MG TABLET PO SCH (08:54)
[2018-02-05] MEDS: FAMOTIDINE (20 MG) 20 MG TABLET GT SCH (08:54)
[2018-02-05] MEDS: ASCORBIC ACID 500 MG TABLET PO SCH (08:54)
[2018-02-05] MEDS: DOCUSATE SODIUM LIQ 100 MG/10 ML UDC NG SCH ×2 (08:54→16:11)
[2018-02-05] MEDS: VIT B CMPLX 3/FA/VIT C/BIOTIN 1 TAB TABLET GT SCH (08:54)
[2018-02-05] MEDS: HYDROCORTISONE SOD SUCCINATE 100 MG/2 ML VIAL IV SCH ×3 (08:54→16:11)
[2018-02-05] MEDS: TAMSULOSIN 0.4 MG CAP.SR.24H GT SCH (08:54)
[2018-02-05] MEDS: PROSOURCE / PROSTAT (PYXIS) 30 ML UDC GT SCH ×3 (08:55→16:11)
[2018-02-05] MEDS: BICALUTAMIDE 50 MG TABLET GT SCH (09:00)
[2018-02-05] MEDS: TRIAMCINOLONE ACETONIDE 0.1% CR 15 GM TUBE TP SCH ×3 (09:01→16:11)
[2018-02-05] MEDS: CADEXOMER IODINE 40 GM TUBE TP SCH (09:01)
[2018-02-05 09:36] LABS: BAND % (MANUAL) 4 % (0.0-5.0); LYMPHOCYTES % (MANUAL) 3 % (16-48); METAMYELOCYTES % 2 % (0-0); MONOCYTES % (MANUAL) 5 % (0-11.0); NEUTROPHILS % (MANUAL) 86 (42-76)
[2018-02-05] MEDS: DOXYCYCLINE 100 MG in IV NS 0.9% 100 ML IV SCH (09:45)
[2018-02-05] MEDS: NOREPINEPHRINE 16 MG in IV D5W 500 ML IV PRN ×2 (10:17→15:05)
--- NOTE | 2018-02-05 10:42 | NUR ---
RT NOTE PT RECEIVED MECHANICALLY VENTILATED VIA SHILEY 8 DCT CUFFED TRACHEOSTOMY TUBE. SETTINGS PRESCRIBED. ALARMS SET PER PROTOCOL AND AUDIBLE. VENT PLUGGED IN TO RED OUTLET. TRACH MIDLINE AND SECURE. THERAPY ASSISTANT PERFORMED. BLOOD FOUND UPON TRACHEAL SUCTION. AMBU BAG AT BED SIDE. NO DISTRESS NOTED. WILL CONTINUE TO MONITOR.
--- NOTE | 2018-02-05 12:20 | NUR ---
RN NOTES PT RECEIVED 2 UNITS OF PRBC WITH HD, TOLERATED WELL.
[2018-02-05] MEDS: NEPRO 1,000 ML BOTTLE GT PRN (16:11)
--- NOTE | 2018-02-05 16:21 | NUR ---
RN NOTES 1 UNIT OF PLT ORDERED BY DR NEWMAN. PER KEL EXTENSION WORK INSTRUCTOR, [facility] WILL NOT PROVIDE US WITH PLTS FOR THIS PT. ORDER WILL BE CANCELED. KEL ATTEMPTED TO SPEAK WITH DAUGHTER TABITHA AND CONSERVATOR X2 TIMES REGARDING BIOETHICS MEETINGS TO BE DONE BEFORE THURSDAY.
[2018-02-05] MEDS: CEFEPIME 2 GM in IV D5W 100 ML IV SCH (17:40)
--- NOTE | 2018-02-05 17:45 | NUR ---
RN NOTES PT IS ON MAX LEVO AND CHANG, BP IN THE LOW 70S. HEALTH CLAIMS EXAMINER KEL MADE AWARE, NO NEW ORDERS. CHARGE NURSE MADE AWARE, CALL MADE TO DAUGHTER TABITHA AWAITING CALL BACK.
[2018-02-05 18:11] LABS: INR 1.42 (0.87-1.13)
[2018-02-05] MEDS ORDERED: FENTANYL PF 100MCG/2ML AMPUL IV PRN (18:30)
[2018-02-05] MEDS ORDERED: LORAZEPAM INJ 2 MG/ML VIAL IV PRN (18:30)
--- NOTE | 2018-02-05 18:30 | NUR ---
RN NOTES PTS DAUGHTERS WANT PT TO BE COMFORT CARE ONLY. OBSTETRICS TECHNICIAN KEL NOTIFIED. ORDERS PLACED PER CHARGE, CODE STATUS CHANGED.
--- NOTE | 2018-02-05 18:33 | NUR ---
INVENTORY CONTROL SPECIALIST TALKED WITH THE TABITHA AND HER SISTER OVER THE PHONE WITH PRIMARY CARE NURSE VALDEMAR RN GAVE THEM UPDATES ON THEIR FATHER'S MEDICAL STATUS AND UNDERSTAND THAT THEIR FATHER WILL GET WORST IN LATER TIME AND THEY DECIDED TO CHANGE STATUS TO COMFORT CARE CALLED UP KEL DIRECTOR SPEECH AND HEARING TO CONVEY WHAT THE PATIENT'S DAUGHTERS DECISION FOR COMFORT CARE NURSE ALDRICH ALSO AGREED AND WILL PUSH THROUGH WITH COMFORT MEASURES KEL DIRECTOR SPEECH AND HEARING ORDERED FOR PAIN MEDICATION AND STOP ALL MEDICATIONS CHANGED STATUS TO COMFORT MEASURES CONTINUE TO BE MONITORED CLOSELY
--- NOTE | 2018-02-05 19:00 | NUR ---
PRINT PROJECT MANAGER: RECEIVED CHRONIC VENT DEPENDENT PT ON COMFORT MEASURES. OPENS EYES INTERMITTENTLY BUT UNABLE TO FOLLOW SIMPLE COMMANDS. NO ACUTE DISTRESS, NO EVIDENCE OF DISCOMFORT AT THIS TIME. NOW OFF VASOPRESSORS. WILL ADMINISTER FENTANYL/ATIVAN NEEDED. STILL NOTED WT ACTIVE BLEEDING ON TRACH SITE WHEN SUCTIONED. GOOD ORAL CARE RENDERED. HOB AT 35 DEGREES. COMFORT MEASURES PROVIDED.
[2018-02-05 19:23] LABS: D-DIMER 8.54 mg/L(FEU (0.17-0.50)
--- NOTE | 2018-02-05 20:45 | NUR ---
SUPERVISOR LOGGING: DAUGHTERS AND SON-IN-LAW AT BEDSIDE. FENTANYL GIVEN FOR COMFORT MEASURES AND EVIDENCE OF LABORED BREATHING/FACIAL GRIMACE AFTER ORAL SUCTIONING. WILL CONTINUE TO MONITOR.
--- NOTE | 2018-02-05 21:15 | NUR ---
BILLING COORDINATOR: PT HR NOTED SINUS BRADYCARDIA UNTIL WENT ASYSTOLE. FAMILY AT BEDSIDE, CHARGE NURSE ED AT BED SIDE TO ASSESS PT. BP UNAPPRECIATED, NO PALPABLE PULSE, PUPILS FIXED AND DILATED. VENTILATOR TURNED OFF AND NO RISING/FALLING OF CHEST NOTED. TIME AT 2110. PRIVACY PROVIDED TO FAMILY.
--- NOTE | 2018-02-05 21:20 | NUR ---
SUPERVISOR LOADING: [facility] CALLED AND SPOKE WT ALLISON AND SAID PT IS NOT A GOOD CANDIDATE AND MAY RELEASE BODY. REFERENCE #: [id number].
--- NOTE | 2018-02-05 21:38 | NUR ---
CLOTH WASHER: MOHINI FROM [facility] CALLED FOR MORE QUESTIONS REGARDING PT's MEDICAL HISTORY AND CONFIRMED THAT THEY WILL NOT BE MOVING FORWARD AND MAY RELEASE BODY.
--- NOTE | 2018-02-05 21:45 | NUR ---
ESCROW SECRETARY: FAMILY GAVE NAME OF MORTUARY AND ESTIMATED ENERGY PROJECT MANAGER TIME. SIGNED PAPERWORK AND LEFT UNIT. PT ADMITTED WT NO BELONGINGS. POST MORTEM CARE PROVIDED.
--- NOTE | 2018-02-05 22:54 | NUR ---
PROCUREMENT MANAGER: BODY RELEASED TO MORTUARY.
== END 2018-02-05 21:10 | disposition expired | DRG 870 ==
LOC: ER 18:53 → TELE-TD 21:14 → TELE1 01-15 11:57 → ICU 01-17 17:43 → TELE-TD 01-23 12:56 → ICU 01-24 17:10
PROVIDERS: ADMIT Registered Nurse; ATTEND Registered Nurse
PROC: 5A1955Z Respiratory Ventilation, Greater than 96 Consecutive Hours (ICD-10-PCS; principal; 2018-01-14)
PROC: 5A1D70Z Performance of Urinary Filtration, Intermittent, Less than 6 Hours Per Day (ICD-10-PCS; 2018-01-16)
PROC: 02HV33Z Insertion of Infusion Device into Superior Vena Cava, Percutaneous Approach (ICD-10-PCS; 2018-01-18)
PROC: B548ZZA Ultrasonography of Superior Vena Cava, Guidance (ICD-10-PCS; 2018-01-18)
PROC: 5A1D70Z Performance of Urinary Filtration, Intermittent, Less than 6 Hours Per Day (ICD-10-PCS; 2018-01-18)
PROC: 5A1D70Z Performance of Urinary Filtration, Intermittent, Less than 6 Hours Per Day (ICD-10-PCS; 2018-01-20)
PROC: 30233N1 Transfusion of Nonautologous Red Blood Cells into Peripheral Vein, Percutaneous Approach (ICD-10-PCS; 2018-01-22)
PROC: 5A1D70Z Performance of Urinary Filtration, Intermittent, Less than 6 Hours Per Day (ICD-10-PCS; 2018-01-22)
PROC: 5A1D70Z Performance of Urinary Filtration, Intermittent, Less than 6 Hours Per Day (ICD-10-PCS; 2018-01-24)
PROC: 5A1D70Z Performance of Urinary Filtration, Intermittent, Less than 6 Hours Per Day (ICD-10-PCS; 2018-01-25)
PROC: 5A1D70Z Performance of Urinary Filtration, Intermittent, Less than 6 Hours Per Day (ICD-10-PCS; 2018-01-27)
PROC: 30233R1 Transfusion of Nonautologous Platelets into Peripheral Vein, Percutaneous Approach (ICD-10-PCS; 2018-01-28)
PROC: 5A1D70Z Performance of Urinary Filtration, Intermittent, Less than 6 Hours Per Day (ICD-10-PCS; 2018-01-29)
PROC: 5A1D70Z Performance of Urinary Filtration, Intermittent, Less than 6 Hours Per Day (ICD-10-PCS; 2018-01-31)
PROC: 5A1D70Z Performance of Urinary Filtration, Intermittent, Less than 6 Hours Per Day (ICD-10-PCS; 2018-02-02)
PROC: 5A1D70Z Performance of Urinary Filtration, Intermittent, Less than 6 Hours Per Day (ICD-10-PCS; 2018-02-04)
PROC: 5A1D70Z Performance of Urinary Filtration, Intermittent, Less than 6 Hours Per Day (ICD-10-PCS; 2018-02-05)
DX: A41.9 Sepsis, unspecified organism (principal); J96.21 Acute and chronic respiratory failure with hypoxia; D65 Disseminated intravascular coagulation [defibrination syndrome]; J95.851 Ventilator associated pneumonia; E43 Unspecified severe protein-calorie malnutrition; Z51.5 Encounter for palliative care; I33.0 Acute and subacute infective endocarditis; R65.21 Severe sepsis with septic shock; J90 Pleural effusion, not elsewhere classified; D61.818 Other pancytopenia; G93.40 Encephalopathy, unspecified; J96.22 Acute and chronic respiratory failure with hypercapnia; N18.6 End stage renal disease; I50.33 Acute on chronic diastolic (congestive) heart failure; L89.153 Pressure ulcer of sacral region, stage 3; Z99.11 Dependence on respirator [ventilator] status; I13.2 Hypertensive heart and chronic kidney disease with heart failure and with stage 5 chronic kidney disease, or end stage renal disease; N39.0 Urinary tract infection, site not specified; E87.1 Hypo-osmolality and hyponatremia; L03.116 Cellulitis of left lower limb; L51.1 Stevens-Johnson syndrome; J95.01 Hemorrhage from tracheostomy stoma; E27.40 Unspecified adrenocortical insufficiency; D68.9 Coagulation defect, unspecified; E87.2 Acidosis; D69.6 Thrombocytopenia, unspecified; E11.22 Type 2 diabetes mellitus with diabetic chronic kidney disease; I95.3 Hypotension of hemodialysis; Z93.1 Gastrostomy status; Z99.2 Dependence on renal dialysis; E78.5 Hyperlipidemia, unspecified; E03.9 Hypothyroidism, unspecified; E83.42 Hypomagnesemia; E87.6 Hypokalemia; R13.10 Dysphagia, unspecified; Z95.1 Presence of aortocoronary bypass graft; Z95.2 Presence of prosthetic heart valve; D63.1 Anemia in chronic kidney disease; L98.8 Other specified disorders of the skin and subcutaneous tissue; S41.102A Unspecified open wound of left upper arm, initial encounter; X58.XXXA Exposure to other specified factors, initial encounter; Y93.9 Activity, unspecified; Y92.129 Unspecified place in nursing home as the place of occurrence of the external cause; E83.9 Disorder of mineral metabolism, unspecified; E88.09 Other disorders of plasma-protein metabolism, not elsewhere classified; M62.50 Muscle wasting and atrophy, not elsewhere classified, unspecified site; Z66 Do not resuscitate; C61 Malignant neoplasm of prostate; Z87.01 Personal history of pneumonia (recurrent); Y84.8 Other medical procedures as the cause of abnormal reaction of the patient, or of later complication, without mention of misadventure at the time of the procedure; Z79.4 Long term (current) use of insulin
CPT/HCPCS: 31720; 36415; 36569; 36600; 71045-TC; 80048-TC; 80053-TC; 80061-TC; 80076-TC; 81000-TC; 82247-TC; 82248-TC; 82533; 82746; 82784; 82803-TC; 82962-TC; 83605-TC; 83735-TC; 83880; 84100-TC; 84155; 84165; 84439-TC; 84443-TC; 84480; 84484-TC; 85025-TC; 85378-TC; 85385-TC; 85396; 85610-TC; 85730-TC; 86334; 86850-TC; 86921-TC; 87040-TC; 87070-TC; 87081-TC; 87086-TC; 87186-TC; 90935-TC; 93307-TC; 94003-TC; 94640-TC; 94760-TC; 94762-TC; 99082-TC; A4216; A4606; A6248; A6253; A6402; A6403; A7526; C1751; J0692; J0696; J0770; J0885; J1720; J1815; J2020; J2185; J2370; J2405; J2543; J3010; J3370; J3475; J3490; J7030; J7040; J7050; J7060; J7120; P9016-BL; P9034-BL; P9045; P9047; Q0163; Z7610